=== PATIENT | female | born 1970 | race Caucasian/White ===

== ENCOUNTER 2021-09-17 12:17 | Emergency (ER) | payer OTHER, SELFPAY ==
[2021-09-17 12:42] VITALS: BP 146/108; PULSE 92; RESP 16; TEMP 36.3; O2SAT 97; BMI 31.0
[2021-09-17 13:00] VITALS: BP 129/90; PULSE 73; RESP 18; O2SAT 96
[2021-09-17 13:30] VITALS: BP 112/82; PULSE 72; RESP 16; O2SAT 97
[2021-09-17 13:41] LABS: Chloride* 104 mmol/L (96-114); Potassium* 4.3 mmol/L (3.6-5.1); Sodium* 137 mmol/L (135-149)
[2021-09-17 13:44] LABS: Carbon Dioxide* 29 mmol/L (20-32); Creatinine* 0.7 mg/dL (0.5-1.5); Est. Creatinine Clearance* 88.01; Estimated Glomerular Filt Rate 104 ml/min
[2021-09-17 13:45] LABS: Blood Urea Nitrogen* 13 mg/dL (7-30); Calcium* 8.8 mg/dL (8.4-10.6); Glucose* 88 mg/dL (60-115)
[2021-09-17 14:08] VITALS: BP 130/89; PULSE 77; RESP 16; O2SAT 98
--- NOTE | 2021-09-17 14:34 | ED.GENADULT ---
HPI - General Adult General Date Seen: 09/17/21 Chief complaint: Arrhythmia/Palpitations Stated complaint: VOMITING,DIARRHEA Time Seen by Provider: 09/17/21 12:49 Source: patient History of Present Illness HPI narrative: Patient is a 50-year-old woman who was seen in [place] a few days ago with vomiting and diarrhea. She says that this happens to her every few months, and has been for 5 years. She says no one has been able to figure out what causes it. At any rate, she says that her potassium was 3.1, and she was discharged with 5 days of potassium replacement, 40 mEq a day. She has been taking those faithfully. She was advised to have her potassium rechecked in her clinic. Today, she was feeling jittery. She talked to her daughter, who told her that this could be related to her low potassium. She then called the nurse line, who told her she should call an ambulance. Instead, she had her boyfriend bring her here for evaluation. She says that she just feels jittery, ?nervous in her stomach?. She has not had any actual palpitations, she does not have any chest pain, lightheadedness, weakness, fainting, or other symptoms. Mostly, she just wants her potassium rechecked. She has not had any further vomiting or diarrhea. She has been eating and drinking without difficulty. Related Data Home Medications Medication Instructions Recorded Confirmed losartan 50 mg tablet 50 mg PO DAILY 09/17/21 09/17/21 omeprazole 40 mg capsule,delayed 40 mg PO DAILY 09/17/21 09/17/21 release potassium chloride 20 mEq 20 meq PO BID 09/17/21 09/17/21 tablet,extended release(part/cryst) venlafaxine 150 mg 225 mg PO DAILY 09/17/21 09/17/21 capsule,extended release 24 hr Allergies Allergy/AdvReac Type Severity Reaction Status Date / Time bee pollen Allergy Severe Anaphylaxis Verified 09/17/21 12:40 Penicillins Allergy Intermediate Verified 09/17/21 12:40 morphine AdvReac Intermediate Migraine Verified 09/17/21 12:40 ondansetron [From Zofran] AdvReac Intermediate Migraine Verified 09/17/21 12:40 Review of Systems Status of ROS: Reports: 10 or more systems reviewed and unremarkable except as noted in History and below PFSH PFSH Social History Smoking Status: Current every day smoker What tobacco products do you use: cigarettes Do you use any of these nicotine containing products: None Second hand tobacco smoke exposure: No How often do you have a drink containing alcohol: monthly or less How often do you have six or more drinks on one occasion: Never AUDIT-C Alcohol total score: 1 Non-prescribed substance use: marijuana (any form) service: No Exam Narrative: Exam Narrative: Vital signs as noted below. In general, an alert, well-appearing patient. Head: Normocephalic, atraumatic. Eyes: Pupils are equal reactive. Extraocular movements are full. Conjunctivae are normal. ENT: Mucous membranes are moist. Throat is normal. Neck: Supple without lymphadenopathy. Heart: Regular rate and rhythm. No murmur or rub. Lungs: Clear bilaterally. No increased work of breathing, crackles or wheezes. Abdomen: Soft and nontender. No organomegaly. Extremities: Well perfused. No edema. No calf tenderness. Pulses intact. Neurologic: Patient is alert and oriented to person and place. Speech is fluent. Face is symmetric. Moves all extremities equally. Affect: Normal. Skin: Warm and dry. Well perfused. Const: Vital Signs, click to edit/add: Vital Signs - 24 hr 09/17/21 12:42 09/17/21 13:00 09/17/21 13:30 Temperature 97.3 F L Pulse Rate [Pulse Oximeter] 92 73 72 Respiratory Rate 16 18 16 Blood Pressure [Le ft Forearm] 146/108 H 129/90 H 112/82 Pulse Oximetry 97 96 97 09/17/21 14:08 Temperature Pulse Rate [Pulse Oximeter] 77 Respiratory Rate 16 Blood Pressure [Le ft Forearm] 130/89 Pulse Oximetry 98 Course Course Hospital Course: We maintained her on the [place] while here, did not have any dysrhythmias. An EKG by my review shows a normal sinus rhythm, ventricular rate of 76 beats per minute. No acute ST segment changes. I did recheck a basic metabolic panel, her potassium today is 4.3. She is very reassured by this. I think it is okay for her to discontinue her potassium replacement given that she is not having any further vomiting or diarrhea. She can follow up as needed. Regarding her jittery feeling today, I do not think this is related to her potassium level obviously. She can follow up as needed should these symptoms persist. Vital Signs Vital signs: Initial Vital Signs Temperature 97.3 F L 09/17/21 12:42 Temperature Source Temporal Artery Scan 09/17/21 12:42 Pulse Rate 92 09/17/21 12:42 Respiratory Rate 16 09/17/21 12:42 Blood Pressure 146/108 H 09/17/21 12:42 Blood Pressure Mean 120 09/17/21 12:42 Blood Pressure Position Sitting 09/17/21 12:42 Pulse Oximetry 97 09/17/21 12:42 Oxygen Delivery Method 09/17/21 12:42 Vital Signs Temperature 97.3 F L 09/17/21 12:42 Pulse Rate 92 09/17/21 12:42 Respiratory Rate 16 09/17/21 12:42 Blood Pressure 146/108 H 09/17/21 12:42 Pulse Oximetry 97 09/17/21 12:42 Temperature 97.3 F L 09/17/21 12:42 Pulse Rate 77 09/17/21 14:08 Respiratory Rate 16 09/17/21 14:08 Blood Pressure 130/89 09/17/21 14:08 Pulse Oximetry 98 09/17/21 14:08 Medical Decision Making Lab Data Labs: Lab Results 09/17/21 Range/Units 13:18 Sodium 137 (135-149) mmol/L Potassium 4.3 (3.6-5.1) mmol/L Chloride 104 (96-114) mmol/L Carbon Dioxide 29 (20-32) mmol/L BUN 13 (7-30) mg/dL Creatinine 0.7 (0.5-1.5) mg/dL Estimated Creat Clear 88.01 Estimated GFR 104 ml/min Glucose 88 (60-115) mg/dL Calcium 8.8 (8.4-10.6) mg/dL Discharge Plan Discharge Clinical Impression: Anxiety Patient Disposition: Home, Self-Care Condition: Improved Additional Instructions: Follow-up as needed with regular doctor. Okay to discontinue potassium supplementation. Prescriptions: No Action potassium chloride 20 mEq tablet,ER particles/crystals 20 meq PO BID 0RF Label Comments: TAKE ONE TABLET BY MOUTH IN THE MORNING AND ONE TABLET IN THE EVENING WITH MEALS FOR 3 DAYS. losartan 50 mg tablet 50 mg PO DAILY 0RF Label Comments: TAKE ONE TABLET BY MOUTH EVERY DAY venlafaxine 150 mg capsule,extended release 24hr 225 mg PO DAILY 0RF Label Comments: TAKE ONE CAPSULE BY MOUTH EVERY DAY ALONG WITH 75MG CAPSULE WITH THE EVENING MEAL. omeprazole 40 mg capsule,delayed release(DR/EC) 40 mg PO DAILY 0RF Label Comments: TAKE ONE CAPSULE BY MOUTH EVERY DAY BEFORE A MEAL Follow Up/Referrals: Bony Little MD [Primary Care Provider] - Stand Alone Forms: [employer] Info Instructions
== END 2021-09-17 14:09 | disposition home or self-care (01) ==
PROVIDERS: Emergency Provider Emergency Medicine; PCP Family Medicine
DX: F41.9 Anxiety disorder, unspecified (principal)
CPT/HCPCS: 36415; 80048; 93005; 99283; 99284

== ENCOUNTER 2022-02-10 09:41 | Emergency (ER) | payer OTHER, SELFPAY ==
[2022-02-10 10:00] VITALS: BP 127/88; PULSE 82; RESP 16; O2SAT 95
[2022-02-10 10:06] VITALS: BP 127/88; PULSE 95; RESP 16; TEMP 37.3; O2SAT 97; BMI 32.3
[2022-02-10 10:30] VITALS: BP 130/90; PULSE 82; RESP 16; O2SAT 93
--- NOTE | 2022-02-10 10:37 | ED_ITS ---
HPI - General Adult General Date Seen: 02/10/22 Chief complaint: Nausea/Vomiting Stated complaint: Sick Time Seen by Provider: 02/10/22 10:14 Source: patient History of Present Illness HPI narrative: Patient is a 51-year-old woman who presents with nausea and vomiting. She tells me she has been sick since yesterday. She says this happens every 3 months and has been for 5 years. We have seen her multiple times here although it looks l ruddy the last time was in July of 2020. I did see her in September for recheck of potassium. She says that she was seen here in November, 3 months ago, for these symptoms, but there is no record of a visit at that time. She says that she has been seen multiple times by Dr. Regalado, has had extensive workup, nothing has ever been found. She has an appointment with him upcoming on February 14. She does smoke marijuana daily, it has been suggested to her that this may play a role in her symptoms, she is highly resistant to that idea and is unwilling to stop smoking marijuana. She says it is the only thing that helps. She says she has stopped in the past and it did not make a difference. She says she had a fever of 101 last night. None today. Unable to keep anything down since yesterday. No severe abdominal pain. No bloody stools. No urinary symptoms. Does get diarrhea. Symptoms are identical to previous episodes. She has had a cholecystectomy. Denies alcohol use. Related Data Home Medications Medication Instructions Recorded Confirmed losartan 50 mg tablet 50 mg PO DAILY 09/17/21 02/10/22 omeprazole 40 mg capsule,delayed 40 mg PO DAILY 09/17/21 02/10/22 release venlafaxine 150 mg 225 mg PO DAILY 09/17/21 02/10/22 capsule,extended release 24 hr famotidine 40 mg tablet 40 mg PO QHS 02/10/22 02/10/22 Previous Rx's Medication Instructions Recorded metoclopramide HCl 10 mg tablet 10 mg PO Q6H PRN nausea and 02/10/22 (Reglan) vomiting #10 tabs potassium chloride 20 mEq 20 meq PO DAILY #10 tabs 02/10/22 tablet,extended release Allergies Allergy/AdvReac Type Severity Reaction Status Date / Time bee pollen Allergy Severe Anaphylaxis Verified 02/10/22 10:09 Penicillins Allergy Intermediate Verified 02/10/22 10:09 morphine AdvReac Intermediate Migraine Verified 02/10/22 10:09 ondansetron [From Zofran] AdvReac Intermediate Migraine Verified 02/10/22 10:09 Review of Systems Status of ROS: Reports: 10 or more systems reviewed and unremarkable except as noted in History and below [facility] Social History Smoking Status: Current every day smoker What tobacco products do you use: cigarettes Smoking packs per day: 1 Smoking cigarettes per day: 20.0 Do you use any of these nicotine containing products: None Second hand tobacco smoke exposure: No How often do you have a drink containing alcohol: monthly or less How often do you have six or more drinks on one occasion: Never AUDIT-C Alcohol total score: 1 Non-prescribed substance use: marijuana (any form) service: No Exam Narrative: Exam Narrative: Vital signs as noted above. In general, an alert, nontoxic woman. Head: Normocephalic, atraumatic. Eyes: Pupils are equal reactive. Extraocular movements are full. Conjunctivae are normal. No scleral icterus. ENT: Mucous membranes are moist. Throat is normal. Neck: Supple without lymphadenopathy. Heart: Regular rate and rhythm. No murmur or rub. Lungs: Clear bilaterally. No increased work of breathing, crackles or wheezes. Abdomen: Soft and nontender. No organomegaly. Extremities: Well perfused. No edema. No calf tenderness. Pulses intact. Neurologic: Patient is alert and oriented to person and place. Speech is fluent. Face is symmetric. Moves all extremities equally. Affect: Normal. Skin: Warm and dry. Well perfused. Const: Vital Signs, click to edit/add: Vital Signs - 24 hr 02/10/22 10:06 02/10/22 10:00 02/10/22 10:30 Temperature 99.2 F Pulse Rate [Pulse Oximeter] 95 82 82 Respiratory Rate 16 16 16 Blood Pressure [Ri ght Upper Arm] 127/88 127/88 130/90 H Pulse Oximetry 97 95 93 Oxygen Delivery Me thod Room Air Room Air Room Air 02/10/22 11:00 02/10/22 11:30 Temperature 99.1 F Pulse Rate [Pulse Oximeter] 93 81 Respiratory Rate 16 16 Blood Pressure [Ri ght Upper Arm] 130/81 135/80 Pulse Oximetry 93 96 Oxygen Delivery Me thod Room Air Room Air Documenting provider has reviewed patient's vital signs: yes Course Course Hospital Course: I have reviewed her records. Multiple previous episodes and visits for this. We will go ahead and give her some fluids, Reglan for nausea, check some labs. I have reviewed with her, I certainly do not think I will have the answer for this. Have discussed with her that I certainly think cessation of marijuana would be appropriate, she is adamant that giving a marijuana is unnecessary and not something she is willing to consider. Labs are overall reassuring. White blood cell count is mildly elevated, but not markedly so. Nonspecific in the setting I think. Potassium is 3.1, she did receive replacement of 50 mEq here, and I am giving her 20 mEq a day for home over the next 10 days. She does have a history of hypokalemia in the past. Her nausea and headache or markedly improved, she is feeling significantly better. Other labs are unremarkable. Symptoms are chronic in nature. My suspicion for acute process such as appendicitis, diverticulitis, obstruction, pancreatitis, hepatitis, pelvic pathology such as PID, torsion, etcetera, is very low. I have recommended that she follow up with Dr. Regalado as planned, but I do not think further imaging is warranted today based on relatively benign labs, benign abdominal exam and chronic nature of her symptoms. She is comfortable with outpatient follow-up. Vital Signs Vital signs: Initial Vital Signs Pulse Rate 82 02/10/22 10:00 Pulse Rhythm 02/10/22 10:00 Pulse Strength 3+ Normal 02/10/22 10:00 Respiratory Rate 16 02/10/22 10:00 Respiratory Effort 02/10/22 10:00 Respiratory Depth Normal 02/10/22 10:00 Respiratory Pattern 02/10/22 10:00 Blood Pressure 127/88 02/10/22 10:00 Blood Pressure Mean 101 02/10/22 10:00 Blood Pressure Position Supine 02/10/22 10:00 Pulse Oximetry 95 02/10/22 10:00 Oxygen Delivery Method 02/10/22 10:00 Vital Signs Pulse Rate 82 02/10/22 10:00 Respiratory Rate 16 02/10/22 10:00 Blood Pressure 127/88 02/10/22 10:00 Pulse Oximetry 95 02/10/22 10:00 Oxygen Delivery Method 02/10/22 10:00 Temperature 99.1 F 02/10/22 11:30 Pulse Rate 81 02/10/22 11:30 Respiratory Rate 16 02/10/22 11:30 Blood Pressure 135/80 02/10/22 11:30 Pulse Oximetry 96 02/10/22 11:30 Oxygen Delivery Method 02/10/22 11:30 Medical Decision Making Lab Data Labs: Lab Results 02/10/22 02/10/22 02/10/22 Range/Units 10:02 10:35 10:35 WBC 12.40 H (4.50-11.00) K/uL RBC 4.74 (4.00-5.20) m/uL Hgb 14.5 (12.0-16.0) gm/dL Hct 42.2 (33.0-51.0) % MCV 89 (80-100) fL MCH 31 (26-34) pg MCHC 34 (32-36) gm/dL RDW Coeff of Tracee 13.0 (11.5-15.5) % Plt Count 386 (140-440) K/uL Neut % (Auto) 77.3 H (42.0-72.0) % Lymph % (Auto) 16.6 L (20-44) % [place] % (Auto) 5.9 (0.0-11.0) % Eos % (Auto) 0.0 (0.0-7.0) % Baso % (Auto) 0.0 (0.0-3.0) % Neut # (Auto) 9.60 H (1.7-7.0) K/uL Lymph # (Auto) 2.10 (0.90-2.90) K/uL [place] # (Auto) 0.70 (0.00-0.90) K/UL Eos # (Auto) 0.00 (0.00-0.50) K/uL Baso # (Auto) 0.00 (0.00-0.30) K/uL Abs Immat Gran (auto) 0.00 (0.00-0.30) K/uL Imm/Tot Granulo (auto) 0.2 % Sodium 142 (135-149) mmol/L Potassium 3.1 L (3.6-5.1) mmol/L Chloride 107 (96-114) mmol/L Carbon Dioxide 24 (20-32) mmol/L BUN 15 (7-30) mg/dL Creatinine 0.7 (0.5-1.5) mg/dL Estimated Creat Clear 87.01 Estimated GFR 103 ml/min Glucose 113 (60-115) mg/dL Lactate (0.5-1.9) mmol/L Calcium 9.8 (8.4-10.6) mg/dL C-Reactive Protein 1.2 H (0.5-1.0) mg/dL SARS-CoV-2 (PCR) Negative SARS-CoV-2 (Negative) Influenza Type A (PCR) Negative PCR FLU A (Negative) Influenza Type B (PCR) Negative PCR FLU B (Negative) RSV (PCR) Negative PCR RSV (Negative) 02/10/22 Range/Units 10:35 WBC (4.50-11.00) K/uL RBC (4.00-5.20) m/uL Hgb (12.0-16.0) gm/dL Hct (33.0-51.0) % MCV (80-100) fL MCH (26-34) pg MCHC (32-36) gm/dL RDW Coeff of Tracee (11.5-15.5) % Plt Count (140-440) K/uL Neut % (Auto) (42.0-72.0) % Lymph % (Auto) (20-44) % [place] % (Auto) (0.0-11.0) % Eos % (Auto) (0.0-7.0) % Baso % (Auto) (0.0-3.0) % Neut # (Auto) (1.7-7.0) K/uL Lymph # (Auto) (0.90-2.90) K/uL [place] # (Auto) (0.00-0.90) K/UL Eos # (Auto) (0.00-0.50) K/uL Baso # (Auto) (0.00-0.30) K/uL Abs Immat Gran (auto) (0.00-0.30) K/uL Imm/Tot Granulo (auto) % Sodium (135-149) mmol/L Potassium (3.6-5.1) mmol/L Chloride (96-114) mmol/L Carbon Dioxide (20-32) mmol/L BUN (7-30) mg/dL Creatinine (0.5-1.5) mg/dL Estimated Creat Clear Estimated GFR ml/min Glucose (60-115) mg/dL Lactate 1.2 (0.5-1.9) mmol/L Calcium (8.4-10.6) mg/dL C-Reactive Protein (0.5-1.0) mg/dL SARS-CoV-2 (PCR) (Negative) Influenza Type A (PCR) (Negative) Influenza Type B (PCR) (Negative) RSV (PCR) (Negative) Discharge Plan Discharge Clinical Impression: Nausea & vomiting, Hypokalemia Patient Disposition: Home, Self-Care Condition: Improved Instructions: Hypokalemia (ED), Acute Nausea and Vomiting (ED) Additional Instructions: Reglan if needed for nausea/vomiting. Potassium supplementation as ordered. Follow up with Dr. Regalado as planned. Prescriptions: New metoclopramide HCl [Reglan] 10 mg tablet 10 mg PO Q6H PRN (Reason: nausea and vomiting) Qty: 10 0RF potassium chloride 20 mEq tablet extended release 20 meq PO DAILY Qty: 10 2RF No Action losartan 50 mg tablet 50 mg PO DAILY Label Comments: TAKE ONE TABLET BY MOUTH EVERY DAY venlafaxine 150 mg capsule,extended release 24hr 225 mg PO DAILY Label Comments: TAKE ONE CAPSULE BY MOUTH EVERY DAY ALONG WITH 75MG CAPSULE WITH THE EVENING MEAL. omeprazole 40 mg capsule,delayed release(DR/EC) 40 mg PO DAILY Label Comments: TAKE ONE CAPSULE BY MOUTH EVERY DAY BEFORE A MEAL famotidine 40 mg tablet 40 mg PO QHS Label Comments: TAKE ONE TABLET BY MOUTH EVERY DAY Follow Up/Referrals: Bony Little MD [Primary Care Provider] - Stand Alone Forms: [employer] Info Instructions
[2022-02-10] MEDS: 0.9 % SODIUM CHLORIDE 1000 ml 1,000 ML IV (10:41)
[2022-02-10 10:46] LABS: Lactate* 1.2 mmol/L (0.5-1.9)
[2022-02-10 10:47] LABS: Hematocrit 42.2 % (33.0-51.0); Hemoglobin* 14.5 gm/dL (12.0-16.0); Immature Granulocytes Pct Auto 0.2 %; Lymphocytes Percent Auto 16.6 % (20-44); Mean Corpuscular HGB Conc 34 gm/dL (32-36); Mean Corpuscular Hemoglobin 31 pg (26-34); Mean Corpuscular Volume 89 fL (80-100); Monocytes Percent Auto 5.9 % (0.0-11.0); Neutrophils Percent Auto 77.3 % (42.0-72.0); Platelet Count* 386 K/uL (140-440); Red Blood Count 4.74 m/uL (4.00-5.20)
[2022-02-10 10:48] LABS: PCR FLU A Negative PCR FLU A (Negative); PCR FLU B Negative PCR FLU B (Negative); PCR RSV Negative PCR RSV (Negative)
[2022-02-10 10:50] LABS: SARS PCR* Negative SARS-CoV-2 (Negative)
[2022-02-10 10:56] LABS: Slide Review Reflex No
[2022-02-10 11:00] VITALS: BP 130/81; PULSE 93; RESP 16; O2SAT 93
[2022-02-10 11:07] LABS: Chloride* 107 mmol/L (96-114)
[2022-02-10 11:08] LABS: Potassium* 3.1 mmol/L (3.6-5.1); Sodium* 142 mmol/L (135-149)
[2022-02-10] MEDS: METOCLOPRAMIDE HCL 10 MG in 0.9 % SODIUM CHLORIDE 100 ml 100 ML 306 MG IVPB (11:09)
[2022-02-10 11:10] LABS: Creatinine* 0.7 mg/dL (0.5-1.5); Est. Creatinine Clearance* 87.01; Estimated Glomerular Filt Rate 103 ml/min
[2022-02-10 11:11] LABS: Blood Urea Nitrogen* 15 mg/dL (7-30); Calcium* 9.8 mg/dL (8.4-10.6); Carbon Dioxide* 24 mmol/L (20-32); Glucose* 113 mg/dL (60-115)
[2022-02-10 11:14] LABS: C Reactive Protein* 1.2 mg/dL (0.5-1.0)
[2022-02-10 11:30] VITALS: BP 135/80; PULSE 81; RESP 16; TEMP 37.3; O2SAT 96
[2022-02-10] MEDS: POTASSIUM BICARB 25 MEQ EFFERVESCENT TAB 50 MEQ PO (11:56)
== END 2022-02-10 12:19 | disposition home or self-care (01) ==
PROVIDERS: Emergency Provider Emergency Medicine; PCP Family Medicine
DX: R11.2 Nausea with vomiting, unspecified (principal); E87.6 Hypokalemia
CPT/HCPCS: 36415; 80048; 83605; 85025; 86140; 87502; 87634; 87635; 96365; 99284; A9270; J2765; J7030

== ENCOUNTER 2022-05-25 12:54 | Emergency (ER) | payer OTHER, SELFPAY ==
[2022-05-25 13:09] VITALS: BP 173/113; PULSE 139; RESP 20; TEMP 37.2; O2SAT 98; BMI 32.3
--- NOTE | 2022-05-25 13:31 | ED.GENADULT ---
HPI - General Adult General Time Seen by Provider: 13:31 Date Seen: 05/25/22 Chief complaint: Weakness Stated complaint: Can't keep anything down, dehydrated Time Seen by Provider: 05/25/22 13:00 Source: patient and RN notes reviewed Mode of arrival: ambulatory Limitations: no limitations History of Present Illness HPI narrative: Patient is a 51-year-old female coming in with inability to keep anything down. She has had nausea vomiting for few days now. She is supposed to be on an oral antibiotic for right ear infection. That awoke her 2 nights ago middle the night. She is going to be seeing a GI specialist. She will periodically have nausea vomiting. Michael reportedly gives her migraines. She does have metoclopramide at home. She has been on able to stop the nausea vomiting. She states she has a 5 year history of stomach issues, will be going to see a GI specialist. She only has pain when she attempts to eat or drink anything. She will vomit it back up. She is here with male significant other that I presume is her . He did interject quite a bit into the history. She had fevers with the ear infection. She has felt hot and cold. When questioned if she has been told or asked about cyclical vomiting, she is unaware of this diagnosis. She denies any underlying cough or cold symptoms, ear infection reportedly did not stem from a recent URI. Related Data Home Medications Medication Instructions Recorded Confirmed losartan 50 mg tablet 50 mg PO DAILY 09/17/21 02/10/22 omeprazole 40 mg capsule,delayed 40 mg PO DAILY 09/17/21 02/10/22 release venlafaxine 150 mg 225 mg PO DAILY 09/17/21 02/10/22 capsule,extended release 24 hr famotidine 40 mg tablet 40 mg PO QHS 02/10/22 02/10/22 Previous Rx's Medication Instructions Recorded metoclopramide HCl 10 mg tablet 10 mg PO Q6H PRN nausea and 02/10/22 (Reglan) vomiting #10 tabs potassium chloride 20 mEq 20 meq PO DAILY #10 tabs 02/10/22 tablet,extended release Allergies Allergy/AdvReac Type Severity Reaction Status Date / Time bee pollen Allergy Severe Anaphylaxis Verified 05/25/22 13:12 Penicillins Allergy Intermediate Verified 05/25/22 13:12 morphine AdvReac Intermediate Migraine Verified 05/25/22 13:12 ondansetron [From Zofran] AdvReac Intermediate Migraine Verified 05/25/22 13:12 Review of Systems Status of ROS: Reports: 6 or more systems reviewed and unremarkable except as noted in History and below [facility] Social History Smoking Status: Current every day smoker What tobacco products do you use: cigarettes Smoking packs per day: 1 Smoking cigarettes per day: 20.0 Do you use any of these nicotine containing products: None Second hand tobacco smoke exposure: No How often do you have a drink containing alcohol: monthly or less How often do you have six or more drinks on one occasion: Never AUDIT-C Alcohol total score: 1 Non-prescribed substance use: marijuana (any form) service: No Exam Const: Vital Signs, click to edit/add: Vital Signs - 24 hr 05/25/22 13:09 05/25/22 15:37 Temperature 99.0 F Pulse Rate [Pulse Oximeter] 139 H Respiratory Rate 20 Blood Pressure [Le ft Upper Arm] 173/113 H Pulse Oximetry 98 93 Oxygen Delivery Me thod Room Air Documenting provider has reviewed patient's vital signs: yes Common normals: no apparent distress, oriented x3, no limitations, alert and well nourished General appearance: cooperative, comfortable and well developed Nutritional appearance: overweight Other: Looks like she does not feel well but is able to converse with me. Is very pleasant. HENMT: Common normals: normocephalic, head/scalp atraumatic, hearing grossly normal bilaterally and external ears normal Head and scalp: normocephalic and atraumatic External ear: external ears normal Other: Oral mucosa dry. Right tympanic membrane is pink to erythematous, bulging, loss of light reflects, no drainage in the canal at this time. Left TM canal normal. Oral mucosa with dry mucous membranes. Eye: Common normals: PERRL, EOMs intact bilaterally, conjunctivae normal and no scleral icterus Conjunctiva: conjunctiva(e) normal Pupil: PERRL Neck & C-Spine: Common normals: full ROM, no lymphadenopathy, supple, no meningeal signs, no JVD and thyroid normal Thyroid: thyroid normal Resp: Common normals: normal respiratory effort, no retractions, no use of accessory muscles and clear to auscultation bilaterally Auscultation: clear to auscultation bilaterally Cardio: Common normals: no JVD, regular rate, regular rhythm, S1 normal heart sound, S2 normal heart sound, no gallops, no clicks and no murmurs Rate: regular rate Rhythm: regular rhythm Heart sounds: S1 normal and S2 normal GI: Common normals: Normal to inspection, nondistended, normoactive bowel sounds present, soft to palpation, non-tender, no hepatosplenomegaly and no masses Palpation: soft and no hepatosplenomegaly Neuro: Common normals: oriented x3 Sensorium/orientation: alert Meningeal signs: no meningeal signs Gait (neuro): normal gait (Patient was able to ambulate into room 7 on her own.) Course Course Hospital Course: Reviewed with patient that we will initiate IV fluid, she was quite relieved that we were going to do so. She had her ear drops with and was able to visualize that she was given oral Cipro and Ciprodex ear drops. I will give her dose of IV ciprofloxacin 400 mg for her ear. We will do 10 mg IV metoclopramide. Will check baseline labs. Her abdomen seems benign on clinical examination, doubt surgical abdomen. She is reporting 5 year history of symptoms, do wonder if this could be a cyclical vomiting type situation. Will see how she does with the fluids, response to nausea medicine. Reevaluation(s) Reevaluation #1: Reviewed with patient, she is feeling much better. Her white count and C-reactive protein are up, very likely due to the ear infection. She did get IV Cipro here. She was able to take her losartan and her venlafaxine and kept it down. She is requesting to go home, does not want further IV fluids. We did briefly review that I did review her old records, without it being said, she grabbed my hand and stated I know. Time: 15:53 Vital Signs Vital signs: Initial Vital Signs Temperature 99.0 F 05/25/22 13:09 Temperature Source Temporal Artery Scan 05/25/22 13:09 Pulse Rate 139 H 05/25/22 13:09 Pulse Rhythm 05/25/22 13:09 Pulse Strength 3+ Normal 05/25/22 13:09 Respiratory Rate 20 05/25/22 13:09 Blood Pressure 173/113 H 05/25/22 13:09 Blood Pressure Mean 133 05/25/22 13:09 Blood Pressure Position Sitting 05/25/22 13:09 Pulse Oximetry 98 05/25/22 13:09 Oxygen Delivery Method 05/25/22 13:09 Vital Signs Temperature 99.0 F 05/25/22 13:09 Pulse Rate 139 H 05/25/22 13:09 Respiratory Rate 20 05/25/22 13:09 Blood Pressure 173/113 H 05/25/22 13:09 Pulse Oximetry 98 05/25/22 13:09 Oxygen Delivery Method 05/25/22 13:09 Temperature 99.0 F 05/25/22 13:09 Pulse Rate 139 H 05/25/22 13:09 Respiratory Rate 20 05/25/22 13:09 Blood Pressure 173/113 H 05/25/22 13:09 Pulse Oximetry 93 05/25/22 15:37 Oxygen Delivery Method 05/25/22 13:09 Medical Decision Making Medical Records Medical records reviewed: Yes I reviewed the patient's medical records Medical records narrative: Did review old records, specifically you review Dr. Cheema note from her last ER visit in its entirety. Patient does seem like she has probable cyclical vomiting, does use marijuana per that note. It is not something that the patient is willing to except as a causative etiology to her nausea and vomiting from prior notes. Lab Data Labs: Lab Results 05/25/22 05/25/22 05/25/22 Range/Units 13:50 13:50 13:50 WBC 20.20 H (4.50-11.00) K/uL RBC 5.15 (4.00-5.20) m/uL Hgb 15.8 (12.0-16.0) gm/dL Hct 45.7 (33.0-51.0) % MCV 89 (80-100) fL MCH 31 (26-34) pg MCHC 35 (32-36) gm/dL RDW Coeff of Tracee 13.0 (11.5-15.5) % Plt Count 443 H (140-440) K/uL Neut % (Auto) 82.9 H (42.0-72.0) % Lymph % (Auto) 10.0 L (20-44) % [place] % (Auto) 6.8 (0.0-11.0) % Eos % (Auto) 0.1 (0.0-7.0) % Baso % (Auto) 0.0 (0.0-3.0) % Neut # (Auto) 16.70 H (1.7-7.0) K/uL Lymph # (Auto) 2.00 (0.90-2.90) K/uL [place] # (Auto) 1.40 H (0.00-0.90) K/UL Eos # (Auto) 0.00 (0.00-0.50) K/uL Baso # (Auto) 0.00 (0.00-0.30) K/uL Sodium 139 (135-149) mmol/L Potassium 3.5 L (3.6-5.1) mmol/L Chloride 106 (96-114) mmol/L Carbon Dioxide 23 (20-32) mmol/L BUN 20 (7-30) mg/dL Creatinine 0.8 (0.5-1.5) mg/dL Estimated Creat Clear 76.13 Estimated GFR 88 ml/min Glucose 144 H (60-115) mg/dL Lactate 1.7 (0.5-1.9) mmol/L Calcium 10.4 (8.4-10.6) mg/dL Total Bilirubin 0.6 (0.1-1.5) mg/dL AST 21 (12-35) U/L ALT 22 (4-35) U/L Alkaline Phosphatase 116 (40-150) U/L C-Reactive Protein 7.4 H (0.5-1.0) mg/dL Total Protein 8.4 H (6.0-8.3) g/dL Albumin 4.8 (3.3-5.0) g/dL Lipase 39 (23-300) U/L Critical Care Time Critical Care Time Critical Care Time: No Discharge Plan Discharge Clinical Impression: Otitis media, Dehydration Patient Disposition: Home, Self-Care Condition: Stable Instructions: Dehydration (ED), Ear Infection (ED), Cyclic Vomiting Syndrome (ED) Additional Instructions: Start oral antibiotics tomorrow, can continue with ear drops as prescribed. Take your usual medicines. Do recommend following up with GI as you have planned. If you are unable to take oral antibiotics by tomorrow morning, have any further concerns or issues, do recommend re-evaluation. Can use your metoclopramide as needed per prescription for any recurrent nausea or vomiting. Activity Level: Activity as Tolerated Discharge Diet: Regular Prescriptions: No Action losartan 50 mg tablet 50 mg PO DAILY Label Comments: TAKE ONE TABLET BY MOUTH EVERY DAY venlafaxine 150 mg capsule,extended release 24hr 225 mg PO DAILY Label Comments: TAKE ONE CAPSULE BY MOUTH EVERY DAY ALONG WITH 75MG CAPSULE WITH THE EVENING MEAL. omeprazole 40 mg capsule,delayed release(DR/EC) 40 mg PO DAILY Label Comments: TAKE ONE CAPSULE BY MOUTH EVERY DAY BEFORE A MEAL famotidine 40 mg tablet 40 mg PO QHS Label Comments: TAKE ONE TABLET BY MOUTH EVERY DAY metoclopramide HCl [Reglan] 10 mg tablet 10 mg PO Q6H PRN (Reason: nausea and vomiting) Qty: 10 0RF potassium chloride 20 mEq tablet extended release 20 meq PO DAILY Qty: 10 2RF Stand Alone Forms: [employer] Info Instructions
[2022-05-25] MEDS: 0.9 % SODIUM CHLORIDE 1000 ml 1,000 ML IV (14:15)
[2022-05-25] MEDS: CIPROFLOXACIN 400 MG/200 ML PIGGYBACK 200 MG IVPB (14:15)
[2022-05-25 14:22] LABS: Lactate* 1.7 mmol/L (0.5-1.9)
[2022-05-25] MEDS: METOCLOPRAMIDE HCL 5 MG/ML INJ 10 MG IVP (14:23)
[2022-05-25 14:27] LABS: Eosinophils Percent Auto 0.1 % (0.0-7.0); Hematocrit 45.7 % (33.0-51.0); Hemoglobin* 15.8 gm/dL (12.0-16.0); Immature Granulocytes Pct Auto 0.2 %; Mean Corpuscular HGB Conc 35 gm/dL (32-36); Mean Corpuscular Hemoglobin 31 pg (26-34); Mean Corpuscular Volume 89 fL (80-100); Monocytes Percent Auto 6.8 % (0.0-11.0); Neutrophils Percent Auto 82.9 % (42.0-72.0); Platelet Count* 443 K/uL (140-440); Red Blood Count 5.15 m/uL (4.00-5.20)
[2022-05-25 14:35] LABS: Slide Review Reflex No
[2022-05-25 14:43] LABS: Chloride* 106 mmol/L (96-114)
[2022-05-25 14:44] LABS: Albumin* 4.8 g/dL (3.3-5.0); Potassium* 3.5 mmol/L (3.6-5.1); Sodium* 139 mmol/L (135-149)
[2022-05-25 14:46] LABS: Creatinine* 0.8 mg/dL (0.5-1.5); Est. Creatinine Clearance* 76.13; Estimated Glomerular Filt Rate 88 ml/min
[2022-05-25 14:47] LABS: Alanine Aminotransferase* 22 U/L (4-35); Alkaline Phosphatase* 116 U/L (40-150); Aspartate Amino Transferase* 21 U/L (12-35); Bilirubin Total* 0.6 mg/dL (0.1-1.5); Blood Urea Nitrogen* 20 mg/dL (7-30); Calcium* 10.4 mg/dL (8.4-10.6); Carbon Dioxide* 23 mmol/L (20-32); Glucose* 144 mg/dL (60-115); Lipase* 39 U/L (23-300); Total Protein* 8.4 g/dL (6.0-8.3)
[2022-05-25 14:50] LABS: C Reactive Protein* 7.4 mg/dL (0.5-1.0)
[2022-05-25 15:37] VITALS: O2SAT 93
== END 2022-05-25 16:18 | disposition home or self-care (01) ==
PROVIDERS: Emergency Provider Family Medicine
DX: H66.91 Otitis media, unspecified, right ear (principal); E86.0 Dehydration
CPT/HCPCS: 36415; 80053; 81001; 83605; 83690; 85025; 86140; 94761; 96365; 96375; 99284; J0744; J2765; J7030

== ENCOUNTER 2022-05-26 09:37 | Emergency (ER) | payer OTHER, SELFPAY ==
[2022-05-26 10:08] VITALS: BP 173/104; PULSE 109; RESP 18; TEMP 36.2; O2SAT 98; BMI 32.3
[2022-05-26] MEDS: 0.9 % SODIUM CHLORIDE 1000 ml 1,000 ML IV (10:33)
[2022-05-26 10:40] LABS: Basophils Percent Auto 0.1 % (0.0-3.0); Eosinophils Percent Auto 0.1 % (0.0-7.0); Hematocrit 43.6 % (33.0-51.0); Hemoglobin* 14.7 gm/dL (12.0-16.0); Immature Granulocytes Pct Auto 0.1 %; Lymphocytes Percent Auto 11.1 % (20-44); Mean Corpuscular HGB Conc 34 gm/dL (32-36); Mean Corpuscular Hemoglobin 31 pg (26-34); Mean Corpuscular Volume 91 fL (80-100); Monocytes Percent Auto 5.2 % (0.0-11.0); Neutrophils Percent Auto 83.4 % (42.0-72.0); Platelet Count* 385 K/uL (140-440); White Blood Count* 16.27 K/uL (4.50-11.00)
[2022-05-26] MEDS: METOCLOPRAMIDE HCL 5 MG/ML INJ 10 MG IVP (11:16)
[2022-05-26 11:26] LABS: Albumin* 4.4 g/dL (3.3-5.0); Chloride* 106 mmol/L (96-114)
[2022-05-26 11:27] LABS: Potassium* 3.4 mmol/L (3.6-5.1); Sodium* 138 mmol/L (135-149)
[2022-05-26 11:29] LABS: Creatinine* 0.7 mg/dL (0.5-1.5); Est. Creatinine Clearance* 87.01; Estimated Glomerular Filt Rate 103 ml/min
[2022-05-26 11:30] LABS: Alanine Aminotransferase* 21 U/L (4-35); Alkaline Phosphatase* 109 U/L (40-150); Aspartate Amino Transferase* 25 U/L (12-35); Bilirubin Total* 0.6 mg/dL (0.1-1.5); Blood Urea Nitrogen* 17 mg/dL (7-30); Calcium* 9.5 mg/dL (8.4-10.6); Carbon Dioxide* 22 mmol/L (20-32); Glucose* 142 mg/dL (60-115); Lipase* 46 U/L (23-300); Total Protein* 7.7 g/dL (6.0-8.3)
--- NOTE | 2022-05-26 11:30 | ED.NAVMDI ---
HPI - Nausea/Vomiting/Diarrhea General Chief complaint: Nausea/Vomiting Stated complaint: needs fluids Time Seen by Provider: 05/26/22 10:29 History of Present Illness HPI Narrative: This 51-year-old female comes in reporting persistent nausea and vomiting. She states that she had decreased hearing and was seen in clinic 4 days ago. She had her ears irrigated then. She was referred to an senior publications specialist who did further cleaning of her ear canals using suction. There was a hematoma present and a diagnosis of otitis externa was made. The patient may have otitis media but it was difficult to visualize the middle compartment according to the patient. She is currently taking Cipro otic and oral Cipro tablets. She was seen yesterday because of vomiting and nausea. She is taking Reglan. She returns today because of vomiting and nausea symptoms. She states that she did have a fever yesterday but arrives here with normal temperature today. Related Data Home Medications Medication Instructions Recorded Confirmed losartan 50 mg tablet 50 mg PO DAILY 09/17/21 02/10/22 omeprazole 40 mg capsule,delayed 40 mg PO DAILY 09/17/21 02/10/22 release venlafaxine 150 mg 225 mg PO DAILY 09/17/21 02/10/22 capsule,extended release 24 hr famotidine 40 mg tablet 40 mg PO QHS 02/10/22 02/10/22 Previous Rx's Medication Instructions Recorded metoclopramide HCl 10 mg tablet 10 mg PO Q6H PRN nausea and 02/10/22 (Reglan) vomiting #10 tabs potassium chloride 20 mEq 20 meq PO DAILY #10 tabs 02/10/22 tablet,extended release cephalexin 500 mg capsule 500 mg PO TID 7 days #21 caps 05/26/22 Allergies Allergy/AdvReac Type Severity Reaction Status Date / Time bee pollen Allergy Severe Anaphylaxis Verified 05/25/22 13:12 Penicillins Allergy Intermediate Verified 05/25/22 13:12 morphine AdvReac Intermediate Migraine Verified 05/25/22 13:12 ondansetron [From Zofran] AdvReac Intermediate Migraine Verified 05/25/22 13:12 Review of Systems Status of ROS: Reports: 10 or more systems reviewed and unremarkable except as noted in History and below Narrative: Constitutional: No fevers, no weight gain or loss. Eyes: No discharge. No vision changes. HENT: Decreased hearing bilaterally. Cardiovascular: No chest pain, no palpitations. Respiratory: No shortness of breath, no wheezes, no cough. Gastrointestinal: She reports upper epigastric abdominal pain. She has nausea and vomiting. No report of diarrhea. Genitourinary: No dysuria, no hematuria. Musculoskeletal: Normal range of motion. Skin: No rashes, no pruritis. Neurological: No dizziness, weakness, sensory change, speech change. Endo/Heme/Allergies: No bruising or bleeding. No polydipsia. Pysch: no suicidality, no anxiety, no insomnia. All other systems reviewed and are negative. [facility] Social History Smoking Status: Current every day smoker What tobacco products do you use: cigarettes Smoking packs per day: 1 Smoking cigarettes per day: 20.0 Do you use any of these nicotine containing products: None Second hand tobacco smoke exposure: No How often do you have a drink containing alcohol: monthly or less How often do you have six or more drinks on one occasion: Never AUDIT-C Alcohol total score: 1 Non-prescribed substance use: marijuana (any form) service: No Exam Narrative: Exam Narrative: Constitutional: Well-developed, well-nourished, no acute distress. HEENT: Normocephalic, atraumatic. She has cotton placed in each ear Canal. Neck: Normal range of motion. Nontender. Supple. Heart: Regular. No murmurs. Normal rate. Intact distal pulses. Lungs: Clear to auscultation. No chest discomfort. No wheezes, rhonchi, or rales. Abdomen: Normal bowel sounds. Nontender. No rebound tenderness. Genitalia: Deferred. Back: No midline tenderness. Normal range of motion. Extremities: Normal range of motion. No injury. Skin: Intact. No rash. Warm. No erythema or pallor. Neurologic: No altered sensation. No weakness. Alert and oriented. Psychiatric: No suicidality. No anxiety or depression. No insomnia. Nursing notes and vitals signs are reviewed. Const: Vital Signs, click to edit/add: Vital Signs - 24 hr 05/26/22 10:08 Temperature 97.2 F L Pulse Rate [Right Pulse Oximeter] 109 H Respiratory Rate 18 Blood Pressure [Ri ght Upper Arm] 173/104 H Pulse Oximetry 98 Oxygen Delivery Me thod Room Air Course Vital Signs Vital signs: Initial Vital Signs Temperature 97.2 F L 05/26/22 10:08 Temperature Source Temporal Artery Scan 05/26/22 10:08 Pulse Rate 109 H 05/26/22 10:08 Respiratory Rate 18 05/26/22 10:08 Blood Pressure 173/104 H 05/26/22 10:08 Blood Pressure Mean 127 05/26/22 10:08 Blood Pressure Position Sitting 05/26/22 10:08 Pulse Oximetry 98 05/26/22 10:08 Oxygen Delivery Method Room Air 05/26/22 10:08 Vital Signs Temperature 97.2 F L 05/26/22 10:08 Pulse Rate 109 H 05/26/22 10:08 Respiratory Rate 18 05/26/22 10:08 Blood Pressure 173/104 H 05/26/22 10:08 Pulse Oximetry 98 05/26/22 10:08 Oxygen Delivery Method Room Air 05/26/22 10:08 Temperature 97.2 F L 05/26/22 10:08 Pulse Rate 109 H 05/26/22 10:08 Respiratory Rate 18 05/26/22 10:08 Blood Pressure 173/104 H 05/26/22 10:08 Pulse Oximetry 98 05/26/22 10:08 Oxygen Delivery Method Room Air 05/26/22 10:08 MDM - Nausea/Vomiting/Diarrhea MDM Narrative Medical decision making narrative: This patient came in primarily for treatment of persistent vomiting and nausea symptoms. An IV was established where she did receive IV fluids and raglan. She states that she has not been able to take her oral medications. She is taking Cipro otic but may benefit from a more traditional oral medication typically used for otitis media. It could be that Cipro is causing her GI symptoms. Any antibiotic could cause nausea and vomiting symptoms. [place] guide for antimicrobial treatment does not list Cipro as a primary or secondary treatment for otitis media. Patient did receive an IV dose of Rocephin 1 g and a prescription for Keflex as she has allergy to penicillin in her history. I advised her to continue the Cipro otic but discontinue the oral Cipro. Lab Data Labs: Lab Results 05/26/22 Range/Units 10:30 WBC 16.27 H (4.50-11.00) K/uL RBC 4.80 (4.00-5.20) m/uL Hgb 14.7 (12.0-16.0) gm/dL Hct 43.6 (33.0-51.0) % MCV 91 (80-100) fL MCH 31 (26-34) pg MCHC 34 (32-36) gm/dL RDW Coeff of Tracee 13.0 (11.5-15.5) % Plt Count 385 (140-440) K/uL Neut % (Auto) 83.4 H (42.0-72.0) % Lymph % (Auto) 11.1 L (20-44) % [place] % (Auto) 5.2 (0.0-11.0) % Eos % (Auto) 0.1 (0.0-7.0) % Baso % (Auto) 0.1 (0.0-3.0) % Neut # (Auto) 13.60 H (1.7-7.0) K/uL Lymph # (Auto) 1.80 (0.90-2.90) K/uL [place] # (Auto) 0.80 (0.00-0.90) K/UL Eos # (Auto) 0.00 (0.00-0.50) K/uL Baso # (Auto) 0.00 (0.00-0.30) K/uL Discharge Plan Discharge Clinical Impression: Otitis externa, Otitis media Patient Disposition: Home, Self-Care Condition: Improved Additional Instructions: Continue Cipro otic. Hold oral Cipro and switched to Keflex as prescribed. Follow up with MD or return if worsening. Prescriptions: New cephalexin 500 mg capsule 500 mg PO TID 7 Days Qty: 21 0RF No Action losartan 50 mg tablet 50 mg PO DAILY Patient Comments: TAKE ONE TABLET BY MOUTH EVERY DAY venlafaxine 150 mg capsule,extended release 24hr 225 mg PO DAILY Patient Comments: TAKE ONE CAPSULE BY MOUTH EVERY DAY ALONG WITH 75MG CAPSULE WITH THE EVENING MEAL. omeprazole 40 mg capsule,delayed release(DR/EC) 40 mg PO DAILY Patient Comments: TAKE ONE CAPSULE BY MOUTH EVERY DAY BEFORE A MEAL famotidine 40 mg tablet 40 mg PO QHS Patient Comments: TAKE ONE TABLET BY MOUTH EVERY DAY metoclopramide HCl [Reglan] 10 mg tablet 10 mg PO Q6H PRN (Reason: nausea and vomiting) Qty: 10 0RF potassium chloride 20 mEq tablet extended release 20 meq PO DAILY Qty: 10 2RF Follow Up/Referrals: Provider,Not a Local [Primary Care Provider] - Stand Alone Forms: [employer] Info Instructions
[2022-05-26] MEDS: cefTRIAXone 1 GM in 0.9 % SODIUM CHLORIDE Mini-bag 100 ML IVPB (11:45)
[2022-05-26 15:16] LABS: Slide Review Reflex No
== END 2022-05-26 13:11 | disposition home or self-care (01) ==
LOC: ED 11:40
PROVIDERS: Student in an Organized Health Care Education/Training Program; Emergency Provider Emergency Medicine Emergency Medical Services
DX: H66.91 Otitis media, unspecified, right ear (principal)
CPT/HCPCS: 36415; 80053; 83690; 85025; 86140; 96365; 96375; 99283; 99284; J0696; J2765; J7030

== ENCOUNTER 2022-05-27 19:37 | Emergency (ER) | payer OTHER, SELFPAY ==
[2022-05-27] VITALS (8 sets, daily range): BP systolic 183–185; BP diastolic 88–92; PULSE 82–105; RESP 16–18; TEMP 36.8; O2SAT 94–100; BMI 32.3
[2022-05-27] MEDS: ONDANSETRON 2 MG/ML inj 4 MG IVP (20:00)
[2022-05-27] MEDS: 0.9 % SODIUM CHLORIDE 1000 ml 1,000 ML IV (20:00)
--- NOTE | 2022-05-27 20:02 | CRLHL7_ITS ---
For Patients: As a result of the Century Cures Act, medical imaging exams and procedure reports are released immediately into your electronic medical record. You may view this report before your referring provider. If you have questions, please contact your health care provider. INDICATION: Left upper quadrant pain. TECHNIQUE: CT abdomen and pelvis acquired with 98 cc Isovue 370 IV contrast. COMPARISON: CT abdomen and pelvis 02/10/2018. FINDINGS: Lower chest: Unremarkable. Liver: Focal fatty infiltration adjacent to the falciform ligament. Subcentimeter hypodense focus along the hepatic dome is too small to accurately characterize but unchanged and likely a cyst or hemangioma. Gallbladder and bile ducts: Status post cholecystectomy. No biliary ductal dilation. Spleen: Normal in size. Stable size of low density lesion measuring approximately 2 cm, likely benign. Adrenal glands: Unremarkable. No nodules. Pancreas: Unremarkable. No mass or inflammation. Kidneys: Unremarkable. No suspicious masses, stones, or hydronephrosis. GI tract: Small hiatal hernia. Small and large bowel are normal in caliber. Diverticulosis without evidence of diverticulitis. Appendix is not well visualized, however there is no evidence of right lower quadrant inflammatory stranding. Lymph nodes: No lymphadenopathy. Vasculature: Scattered atherosclerotic calcifications. No abdominal aortic aneurysm. Omentum/Peritoneum/Abdominal Wall: Fat containing umbilical and left inguinal hernias. No free air or significant free fluid. Pelvis: Unremarkable. Retroverted uterus. Bones: Degenerative changes of the spine. IMPRESSION: 1. No acute abdominal or pelvic abnormality. 2. Diverticulosis without evidence of diverticulitis. 3. Small hiatal hernia. Please note that all CT scans at this facility use dose modulation, iterative reconstruction, and/or weight-based dosing when appropriate to reduce radiation dose to as low as reasonably achievable. Dictated by Davi Schrader MD @ 05/27/2022 9:15:02 PM (Electronically Signed)
--- NOTE | 2022-05-27 20:04 | ED.NAVMDI ---
HPI - Nausea/Vomiting/Diarrhea General Chief complaint: Nausea/Vomiting Stated complaint: Can't keep meds down, Pooping blood Time Seen by Provider: 05/27/22 19:57 History of Present Illness HPI Narrative: Pt is a 51 year old woman making her third visit this week to the ED. She has previously been seen with dehydration and an ear infection. Pt has complaints tonight of pain in her LUQ. The pain is described as a buring. She does have some reflux symptoms as well for which she takes Omeprazole. Pt has had chronic diarrhea and reflux and is an established pt of [facility]. Pt does not believe that she has had an EGD in the past. No other symptoms. No chest pain or sob. No fevers or chills. Pt continues to smoke tobacco daily. Pt states that she has severe pain and would like to be admitted to the hospital. Related Data Home Medications Medication Instructions Recorded Confirmed losartan 50 mg tablet 50 mg PO DAILY 09/17/21 02/10/22 omeprazole 40 mg capsule,delayed 40 mg PO DAILY 09/17/21 02/10/22 release venlafaxine 150 mg 225 mg PO DAILY 09/17/21 02/10/22 capsule,extended release 24 hr famotidine 40 mg tablet 40 mg PO QHS 02/10/22 02/10/22 Previous Rx's Medication Instructions Recorded metoclopramide HCl 10 mg tablet 10 mg PO Q6H PRN nausea and 02/10/22 (Reglan) vomiting #10 tabs potassium chloride 20 mEq 20 meq PO DAILY #10 tabs 02/10/22 tablet,extended release cephalexin 500 mg capsule 500 mg PO TID 7 days #21 caps 05/26/22 Allergies Allergy/AdvReac Type Severity Reaction Status Date / Time bee pollen Allergy Severe Anaphylaxis Verified 05/27/22 19:45 Penicillins Allergy Intermediate Hives Verified 05/27/22 19:45 morphine AdvReac Intermediate Migraine Verified 05/27/22 19:45 ondansetron [From Zofran] AdvReac Intermediate Migraine Verified 05/27/22 19:45 Review of Systems Status of ROS: Reports: 10 or more systems reviewed and unremarkable except as noted in History and below [facility] Medical History (Updated 05/27/22 @ 21:31 by Ferdinand Washington MD) Asthma ?J45.909 - Unspecified asthma, uncomplicated (ICD-10) Chronic GERD ?K21.9 - Gastro-esophageal reflux disease without esophagitis (ICD-10) Degeneration of lumbar or lumbosacral intervertebral disc ?M51.37 - Other intervertebral disc degeneration, lumbosacral region (ICD-10) Displacement of lumbar intervertebral disc ?M51.26 - Other intervertebral disc displacement, lumbar region (ICD-10) Hypertension ?I10 - Essential (primary) hypertension (ICD-10) Lumbar facet arthropathy ?M47.816 - Spondylosis without myelopathy or radiculopathy, lumbar region (ICD-10) Migraine ?G43.909 - Migraine, unspecified, not intractable, without status migrainosus (ICD-10) Nicotine dependence ?F17.200 - Nicotine dependence, unspecified, uncomplicated (ICD-10) Obesity ?E66.9 - Obesity, unspecified (ICD-10) Social History Smoking Status: Current every day smoker What tobacco products do you use: cigarettes Smoking packs per day: 1 Smoking cigarettes per day: 20.0 Do you use any of these nicotine containing products: None Second hand tobacco smoke exposure: No How often do you have a drink containing alcohol: monthly or less How often do you have six or more drinks on one occasion: Never AUDIT-C Alcohol total score: 1 Non-prescribed substance use: marijuana (any form) service: No Exam Narrative: Exam Narrative: EXAM GENERAL: Patient appears comfortable and well. EYES: No scleral icterus. LYMPH: No supraclavicular or cervical lymphadenopathy. SKIN: Visible skin seen during exam normal or with benign process only. EXT: No dependent lower extremity pedal edema. HEART: Regular rate and rhythm with no murmurs, rubs, or gallops. LUNGS: Clear to auscultation bilaterally with no crackles or wheezes. ABD: Soft, non tender, non distended. PSYCH: Good eye contact, speech is not pressured. Const: Vital Signs, click to edit/add: Vital Signs - 24 hr 05/27/22 19:43 05/27/22 20:00 05/27/22 20:19 Temperature 98.2 F Pulse Rate 98 Pulse Rate [Right Pulse Oximeter] 105 H Respiratory Rate 18 Blood Pressure Blood Pressure [Ri ght Upper Arm] 185/92 H Pulse Oximetry 99 99 94 Oxygen Delivery Me thod Room Air 05/27/22 20:34 05/27/22 20:35 05/27/22 20:36 Temperature Pulse Rate 102 H 99 100 Pulse Rate [Right Pulse Oximeter] Respiratory Rate Blood Pressure Blood Pressure [Ri ght Upper Arm] Pulse Oximetry 97 98 96 Oxygen Delivery Me thod 05/27/22 21:32 05/27/22 21:33 Temperature Pulse Rate 82 91 Pulse Rate [Right Pulse Oximeter] Respiratory Rate 16 Blood Pressure 183/88 H Blood Pressure [Ri ght Upper Arm] Pulse Oximetry 99 100 Oxygen Delivery Me thod Course Course Hospital Course: Evaluation from earlier this week reviewed. CBC, Amylase, CMP CT of the abd and pelvis ordered. Normal saline 1 liter bolus given. Reevaluation(s) Reevaluation #1: Pt's status unchanged. CT of abd and pelvis, CBC, CMP, Amylase all unremarkable upon my review. Time: 21:26 Vital Signs Vital signs: Initial Vital Signs Temperature 98.2 F 05/27/22 19:43 Temperature Source Temporal Artery Scan 05/27/22 19:43 Pulse Rate 105 H 05/27/22 19:43 Respiratory Rate 18 05/27/22 19:43 Blood Pressure 185/92 H 05/27/22 19:43 Blood Pressure Mean 123 05/27/22 19:43 Blood Pressure Position Sitting 05/27/22 19:43 Pulse Oximetry 99 05/27/22 19:43 Oxygen Delivery Method Room Air 05/27/22 19:43 Vital Signs Temperature 98.2 F 05/27/22 19:43 Pulse Rate 105 H 05/27/22 19:43 Respiratory Rate 18 05/27/22 19:43 Blood Pressure 185/92 H 05/27/22 19:43 Pulse Oximetry 99 05/27/22 19:43 Oxygen Delivery Method Room Air 05/27/22 19:43 Temperature 98.2 F 05/27/22 19:43 Pulse Rate 91 05/27/22 21:33 Respiratory Rate 16 05/27/22 21:32 Blood Pressure 183/88 H 05/27/22 21:32 Pulse Oximetry 100 05/27/22 21:33 Oxygen Delivery Method Room Air 05/27/22 19:43 MDM - Nausea/Vomiting/Diarrhea MDM Narrative Medical decision making narrative: Pt is a 51 year old woman who presents with abd pain in the LUQ. Work up is unremarkable. Exam and vitals unremarkable with the exception of hypertension. Pt will continue current Omeprazole. She was counselled on smoking cessation. She is an established pt of [facility] and I would recommend following up with an EGD. Pt can take Maalox or similar in the interim. Differential includes: dyspepsia gerd, hiatle hernia, duodenitis, colitis, IBD, Inflamatory Bowel Disease. Lab Data Labs: Lab Results 05/27/22 05/27/22 Range/Units 19:58 19:59 WBC 11.62 H (4.50-11.00) K/uL RBC 4.75 (4.00-5.20) m/uL Hgb 14.6 (12.0-16.0) gm/dL Hct 43.0 (33.0-51.0) % MCV 91 (80-100) fL MCH 31 (26-34) pg MCHC 34 (32-36) gm/dL RDW Coeff of Tracee 12.8 (11.5-15.5) % Plt Count 366 (140-440) K/uL Neut % (Auto) 75.8 H (42.0-72.0) % Lymph % (Auto) 18.6 L (20-44) % Moca % (Auto) 5.2 (0.0-11.0) % Eos % (Auto) 0.0 (0.0-7.0) % Baso % (Auto) 0.3 (0.0-3.0) % Neut # (Auto) 8.80 H (1.7-7.0) K/uL Lymph # (Auto) 2.20 (0.90-2.90) K/uL Moca # (Auto) 0.60 (0.00-0.90) K/UL Eos # (Auto) 0.00 (0.00-0.50) K/uL Baso # (Auto) 0.00 (0.00-0.30) K/uL Sodium 136 (135-149) mmol/L Potassium 4.7 (3.6-5.1) mmol/L Chloride 106 (96-114) mmol/L Carbon Dioxide 23 (20-32) mmol/L BUN 15 (7-30) mg/dL Creatinine 0.6 (0.5-1.5) mg/dL Estimated Creat Clear 101.51 Estimated GFR 107 ml/min Glucose 120 H (60-115) mg/dL Calcium 9.2 (8.4-10.6) mg/dL Total Bilirubin 1.0 (0.1-1.5) mg/dL AST 37 H (12-35) U/L ALT 22 (4-35) U/L Alkaline Phosphatase 81 (40-150) U/L Total Protein 8.1 (6.0-8.3) g/dL Albumin 4.4 (3.3-5.0) g/dL Amylase 62 (18-89) U/L SARS-CoV-2 (PCR) Negative SARS-CoV-2 (Negative) Influenza Type A (PCR) Negative PCR FLU A (Negative) Influenza Type B (PCR) Negative PCR FLU B (Negative) Discharge Plan Discharge Clinical Impression: Dyspepsia Condition: Stable Instructions: GERD (Gastroesophageal Reflux Disease) (ED) Additional Instructions: Maalox as needed Continue Omeprazole twice daily Follow up with [facility] Activity Level: No Restrictions Discharge Diet: Regular Prescriptions: No Action losartan 50 mg tablet 50 mg PO DAILY Patient Comments: TAKE ONE TABLET BY MOUTH EVERY DAY venlafaxine 150 mg capsule,extended release 24hr 225 mg PO DAILY Patient Comments: TAKE ONE CAPSULE BY MOUTH EVERY DAY ALONG WITH 75MG CAPSULE WITH THE EVENING MEAL. omeprazole 40 mg capsule,delayed release(DR/EC) 40 mg PO DAILY Patient Comments: TAKE ONE CAPSULE BY MOUTH EVERY DAY BEFORE A MEAL cephalexin 500 mg capsule 500 mg PO TID 7 Days Qty: 21 0RF famotidine 40 mg tablet 40 mg PO QHS Patient Comments: TAKE ONE TABLET BY MOUTH EVERY DAY metoclopramide HCl [Reglan] 10 mg tablet 10 mg PO Q6H PRN (Reason: nausea and vomiting) Qty: 10 0RF potassium chloride 20 mEq tablet extended release 20 meq PO DAILY Qty: 10 2RF Follow Up/Referrals: Provider,Not a Local [Primary Care Provider] - Stand Alone Forms: MyHealth Info Instructions
[2022-05-27 20:07] LABS: Basophils Percent Auto 0.3 % (0.0-3.0); Hemoglobin* 14.6 gm/dL (12.0-16.0); Immature Granulocytes Pct Auto 0.1 %; Lymphocytes Percent Auto 18.6 % (20-44); Mean Corpuscular HGB Conc 34 gm/dL (32-36); Mean Corpuscular Hemoglobin 31 pg (26-34); Mean Corpuscular Volume 91 fL (80-100); Monocytes Percent Auto 5.2 % (0.0-11.0); Neutrophils Percent Auto 75.8 % (42.0-72.0); Platelet Count* 366 K/uL (140-440); RDW Coefficient of Variation % 12.8 % (11.5-15.5); Red Blood Count 4.75 m/uL (4.00-5.20); White Blood Count* 11.62 K/uL (4.50-11.00)
--- OUTSIDE RECORDS SUMMARY | 2022-05-27 20:18 | XMS_ITS | Continuity of Care Document ---
Author Name Unknown Organization [facility] Address [address] [address] [place] [address] Phone Care Team Providers Care Core Cutter Name Role Phone Silvia Shields Unavailable Unavailable Allergies, Adverse Reactions, Alerts Substance Reaction Status Criticality morphine Nausea/Vomiting Active No Informati on PENICILLIN HivesHives Active No Information WARNIN allergy(ies) could not be collected because the type is not supported. Please contact the source practice for further details. Medications Medication Instructions Dosage Effective Dates (start - stop) Status Comments Chantix 1 mg tablet take 1 tablet by oral route 2 times every day with glass of water after meals 1 MG - Active atorvastatin 20 mg tablet take 1 tablet by oral route every day 20 MG - Active Effexor XR 75 mg capsule,extended release take 1 capsule by oral route every day with food 75 MG - Active omeprazole 40 mg capsule,delayed release take 1 capsule by oral route every day before a meal 40 MG - Active famotidine 40 mg tablet take 1 tablet by oral route every day 40 MG - Active Proair Digihaler 90 mcg/actuation aerosol powder breath act, sensor inhale 2 puff by inhalation route every 4 - 6 hours as needed 180 MCG - Active losartan 50 mg tablet take 1 tablet by oral route every day 50 MG - Active Effexor XR 150 mg capsule,extended release take 1 capsule by oral route every day 150 MG - Active epinephrine 0.3 mg/0.3 mL injection, auto-injector inject 0.3 milliliter by intramuscular route once as needed for anaphylaxis 0.3 MG - Active loperamide 2 mg capsule take 2 capsule b y oral route after 1st loose stool, followed by 1 capsule after each subsequent loose stool not to exceed 16 mg/day 4 MG - Active metoclopramide 10 mg tablet take 1 tablet by oral route 4 times every day 30 minutes before meals and at bedtime 10 MG - Active colestipol 1 gram tablet take 4 tablet by oral route every day swallowing whole with any liquid. Do not crush, chew and/or divide. 4 G - Active bupropion HCl XL 150 mg 24 hr tablet, extended release take 1 tablet by oral route every day 150 MG - Active cyclobenzaprine 10 mg tablet take 1 tablet by oral route 3 times every day as needed 10 MG - Active Vitamin C 500 mg capsule,extended release - Active Vitamin D3 50 mcg (2,000 unit) capsule take 1 capsule by oral route every day 1 capsule - Active Procedures Procedure Date Office Cons New/estab Mod Advance Directives Directive Yes / No Effective Date File Name No Information Encounters Encounter Description Practice Location Reason(s) For Visit Diagnoses Date Provider Providers Copied on Encounter [facility], [address] [address], [place], [place], [id number], tel:[phone] [facility] No Information [facility] Silvia. [address] [facility] [facility] [address], [place], [place], [id number], [place]. tel:[phone] Office Cons New/estab Mod [facility], [address] [address], [place], [place], [id number], tel:[phone] [facility] GI Symptoms or Concerns (chief complaint) Intractable nausea and vomitingDiarr hea, unspecified typePain of upper abdomen [facility] Silvia. [address] [facility] [facility] [address], [place], [place], [id number], [place]. tel:[phone] Referring Provider: Brendan Glover, [address], [place], [address]. tel:[phone] [facility], [address] [address], [place], [place], [id number], [place] tel:[phone] [facility] No Information Dylan Martinez. [address] [facility], [place], [place], [id number], [place]. tel:[phone] Family History Family Member Type Diagnosis Age At Onset Mother Problem (finding) Asthma Father Problem (finding) Alcoholism Father Problem (finding) Cancer, prostate Father Problem (finding) Diverticular disease Son Problem (finding) Asthma Father Problem (finding) Colon polyps Mother Problem (finding) Colon polyps Mother Problem (finding) Cancer Mother Problem (finding) Gallbladder disease Immunizations Vaccine Date Status Comments tetanus toxoid, reduced diphtheria toxoid, and acellular pertussis vaccine, adsorbed administered Note: [facility] b i-directional interface ; Source: Other Registry Influenza, seasonal, injecta ble, preservative free administered Note: [facility] bi-direct ional interface ; Source: Other Registry Influenza, seasonal, injectable administe red Note: [facility] bi- directional interface ; Source: Other Registry Influenza, seasonal, injecta ble, preservative free administered Note: [facility] bi-direct ional interface ; Source: Other Registry Influenza, seasonal, injectable administe red Note: [facility] bi- directional interface ; Source: Other Registry Influenza, seasonal, injectable administe red Note: [facility] bi- directional interface ; Source: Other Registry Influenza, seasonal, injectable administe red Note: [facility] bi- directional interface ; Source: Other Registry Payers Payer name Insurance type Covered alliance party ID Authoriza tion(s) No Information Social History Type Description Quantity Date Captured Comments Alcohol Use Details Unknown Caffeine Use Details Unknown Tobacco Use Status Smoking Status No Information Sex Female Chief Complaint And Reason For Visit No Information Reason For Referral Reason For Referral No Information Plan Of Treatment Date Type Action Status Referral Ordered: CT Enterography With Contrast Per Radiology Appointment date/timeframe: 03/31/2022 ordered Referral Ordered: 5-HIAA,Quant.,24 Hr Urine Appointment date/timeframe: 02/23/2022 ordered Referral Ordered: CT Brain/Head WITHOUT And WITH Contrast Appointment date/timeframe: 03/29/2022 ordered Referral Ordered: Porphyrins,24-Hr Urine Appointment date/timeframe: 02/23/2022 ordered Referral Ordered: Porphobilinogen, Urine Appointment date/timeframe: 02/23/2022 ordered History Of Present Illness Encounter Date Complaint History Of Prese nt Illness GI Symptoms or Concerns This ariel rodriguez is a pleasant 51-year-old female who was seen at the request of Dr. Regalado for evaluation of chronic nausea, vomiting, and diarrhea. Symptoms started 5 years ago, when the patient's spouse got sick and . She developed episodes of significant abdominal pain, nausea, vomiting, and diarrhea. Since then, she has gone no longer than 3 months between episodes. During these episodes, she developed significant left upper quadrant pain that is described as cramping. She will also get pale and sweaty and then start with nausea and vomiting. These symptoms last for about 5 days, and during this time she is unable to eat or drink anything, or keep down pills. She also has significant watery diarrhea during these episodes, which sometimes contains mucus and blood. She stays at home for several days and then must go to the ER for IV fluids and electrolyte replacement. Symptoms will then improve, but then it takes another week for her to feel better, and she may be constipated during that time. Then she will feel relatively normal for several weeks until symptoms show up again. These symptoms have been very debilitating to the patient. She lost her job at [employer] after working there for many years, because she was missing so much work. Patient has been following with Dr. Regalado at [facility]. I do not have complete records, but good summary of her previous evaluation. Patient has had upper endoscopy, colonoscopy, CT scan, gastric emptying study that were unremarkable. She does have elevated CRP when she presents to the ER, most recently 1.8. She is status post cholecystectomy, with no improvement in symptoms. She does use marijuana daily, which helps with daily baseline nausea. She did try giving this up for 6 months, but episodes did not subside. Further testing was ordered by Dr. Regalado including fecal calprotectin and fecal elastase. She was referred to [facility] for further evaluation. 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 Currently she is on omeprazole 40 milligrams every morning, and famotidine 40 milligrams in the evening. She states Zofran does not help and causes headaches. She has Reglan which helps with headaches, but not her nausea and vomiting. She has taken Imodium with little relief, and was previously prescribed cholestyramine but that caused vomiting. Medical history is significant for, anxiety, depression, asthma, GERD, obesity. She denies family history of colon cancer, IBD, or other GI disease. Functional Status Date Functional Assessmen t No Information Instructions Date Instruction Additional Infor mation No Information Assessments Type Assessment Date No Information Patient Care Teams Name Effective Dates (start - stop) Status Members No Information
[2022-05-27 20:19] LABS: Slide Review Reflex No
[2022-05-27 20:20] LABS: Albumin* 4.4 g/dL (3.3-5.0); Chloride* 106 mmol/L (96-114); Potassium* 4.7 mmol/L (3.6-5.1); Sodium* 136 mmol/L (135-149)
[2022-05-27 20:22] LABS: Amylase* 62 U/L (18-89); Carbon Dioxide* 23 mmol/L (20-32); Creatinine* 0.6 mg/dL (0.5-1.5); Est. Creatinine Clearance* 101.51; Estimated Glomerular Filt Rate 107 ml/min
[2022-05-27 20:23] LABS: Alanine Aminotransferase* 22 U/L (4-35); Alkaline Phosphatase* 81 U/L (40-150); Aspartate Amino Transferase* 37 U/L (12-35); Blood Urea Nitrogen* 15 mg/dL (7-30); Calcium* 9.2 mg/dL (8.4-10.6); Glucose* 120 mg/dL (60-115); Total Protein* 8.1 g/dL (6.0-8.3)
[2022-05-27 20:41] LABS: PCR FLU A Negative PCR FLU A (Negative); PCR FLU B Negative PCR FLU B (Negative)
[2022-05-27 20:42] LABS: SARS PCR* Negative SARS-CoV-2 (Negative)
[2022-05-27] MEDS: GI COCKTAIL (VISC LIDO/ANTACID) 30 ML PO (21:45)
== END 2022-05-27 21:53 | disposition home or self-care (01) ==
PROVIDERS: Emergency Provider Internal Medicine
DX: R10.13 Epigastric pain (principal)
CPT/HCPCS: 36415; 74177; 80053; 82150; 85025; 87631; 94761; 96374; 99283; 99284; 99285; A9270; J2405; J7030; Q9967

== ENCOUNTER 2023-04-17 07:27 | Outpatient (CLI) | payer OTHER, BC, SELFPAY ==
--- OUTSIDE RECORDS SUMMARY | 2023-04-17 07:32 | XMS_ITS | Clinical Summary ---
Author Name Unknown Organization [facility] Address [place], [place] [address] Care Team Providers Care Room Service Clerk Name Role Phone Shawna Dominguez MD Primary Care Provider Allergies Active Allergy Reactions Criticality Noted Date Comments Hymenoptera Allergenic Extract Anaphylaxis High Morphine Headache 01/01/2018 Pt reported migraine Penicillins Hives Ondansetron Headache 07/06/2022 Medications Medication Sig Dispensed Refills Start Date End Date Status ORDER - MEDICATION ORDER COMPOSERIndications :Elevated blood pressure reading without diagnosis of hypertension Blood pressure monitor for home use for elevated BP 1 Kit 0 05/13/2011 Active ascorbic acid, vitamin C, (VITAMIN C) 500 mg tablet Take 1 tablet by mouth once daily. 0 02/21/2018 Active Cholecalciferol, Vitamin D3, (VITAMIN D-3) 2,000 unit tablet Take 1 tablet by mouth once daily. 0 02/21/2018 Active cyclobenzaprine (FLEXERIL) 10 mg tabletIndications:M uscle spasm,Lumbar back pain Take 1 tablet by mouth 2 times daily if needed for Muscle Spasm. 30 tablet 0 10/14/2019 Active loperamide (IMODIUM) 2 mg capsuleIndications: Vomiting and diarrhea Take 4mg by mouth with 1st loose stool, then 2mg with each subsequent loose stool. Max 16 mg in 24 hrs 10 Capsule 0 09/14/2021 Active metoclopramide HCl (REGLAN) 10 mg tabletIndications:V omiting and diarrhea Take 1 Tablet (10 mg) by mouth every 6 hours if needed for Nausea/Vomiting. 10 Tablet 0 09/14/2021 Active EPINEPHrine (EpiPen) 0.3 mg/0.3 mL auto-injectorIndica tions:Bee sting allergy Inject 0.3 mg intramuscular one time if needed for Allergic Reaction. 2 Each 0 11/20/2021 Active varenicline (CHANTIX DOSEPAK) 0.5 mg (11)- 1 mg (42) tabletIndications:E ncounter for smoking cessation counseling Days 1-3 take 0.5mg once daily; Days 4-7 take 0.5mg twice daily; then increase to 1mg twice daily. Take with meals. 1 Packet 0 01/05/2023 Active varenicline (CHANTIX) 1 mg tabletIndications:E ncounter for smoking cessation counseling Take 1 mg by mouth two times daily with meals. 112 Tablet 0 01/05/2023 Active losartan (COZAAR) 50 mg tabletIndications:E ssential hypertension Take 1 Tablet (50 mg) by mouth once daily. 90 Tablet 3 01/05/2023 Active omeprazole (PRILOSEC) 40 mg Delayed-Release capsuleIndications: Gastroesophageal reflux disease with esophagitis without hemorrhage,Hiatal hernia Take 1 Capsule (40 mg) by mouth once daily before a meal. 90 Capsule 3 01/05/2023 Active polyethylene glycol-electrolyte (GOLYTELY) 236-22.74-6.74 -5.86 gram suspensionIndicatio ns:Colon cancer screening Drink 2 liters (1/2 of prep) the day before colonoscopy and drink 2 liters (other 1/2 of prep) 6 hours before colonoscopy appointment. 4000 mL 0 01/06/2023 Active atorvastatin (LIPITOR) 40 mg tabletIndications:M ixed hyperlipidemia Take 1 Tablet (40 mg) by mouth at bedtime. 90 Tablet 3 01/10/2023 Active albuterol HFA (PRO-AIR; VENTOLIN; PROVENTIL) 90 mcg/actuation inhalerIndications: Mild intermittent asthma without complication Inhale 2 Puffs by mouth every 4 hours if needed for Shortness of Breath 1st choice or Wheezing 2nd choice. 36 g 1 02/09/2023 Active venlafaxine (EFFEXOR XR) 150 mg Extended-Release capsuleIndications: Anxiety Take 1 Capsule (150 mg) by mouth once daily with evening meal. 90 Capsule 3 02/09/2023 Active gabapentin (NEURONTIN) 100 mg capsuleIndications: Chronic pain of left knee 3 CAPSULES BY MOUTH AT NIGHT 270 Capsule 3 02/27/2023 Active Active Problems Problem Noted Date Diagnosed Date Prediabetes 01/06/2023 Pap smear for cervical cancer screening 03/11/19 Overview: 1995: [place] 02/02/2022: NIL/HPV neg Plan: Pap and HPV due in 5 years. SHERITA (generalized anxiety disorder) 07/19/2021 Tobacco use disorder 06/24/2020 Sigmoid diverticulosis 12/26/2017 Overview: Noted on colonoscopy on 12/13/2017 Routine adult health maintenance 12/15/2017 Overview: Colonoscopy 12/2017 hyperplastic polyp, repeat in 10 years Adjustment disorder with depressed mood 06/28/19 18 Elevated serum hCG 06/24/2017 Irritable bowel syndrome wit h both constipation and diarrhea 06/22/2017 Bee sting allergy 06/22/2017 Pain medication agreement 04/10/2014 Nonintractable migraine, unspecified migraine ty pe 03/06/2014 Lumbar facet arthropathy 05/22/2013 Hiatal hernia 06/06/2012 Essential hypertension 03/28/2008 Gastroesophageal reflux disease with esophagitis 03/28/2008 Overview: EGD 04/2010 eosinophil esophagitis, gastroesophogeal reflux disease EGD 11/2017 reflux, hiatal hernia, bile, try questran Degeneration of lumbar or lumbosacral interverte bral disc 03/24/2008 Impaired fasting glucose 10/24/2007 Pure hypercholesterolemia 10/24/2007 Morbid obesity with BMI of 40.0-44.9, adult L5-S1 disk bulge with DDD Mild intermittent asthma without complication Resolved Problems Problem Noted Date Diagnosed Date Resolved Date Dyslipidemia 10/01/2015 10/01/2015 Overview: Low HDL Nonintractable migraine 12/04/201406/04 Ingrowing nail 07/31/2008 03/31/2014 Migraine 12/04/2014 Encounters Date Type Department Care Team Description 04/14/2023 Travel 04/04/2023 4:05 PM TELEGRAPHIC TYPEWRITER OPERATOR Preop Visit [facility] [address] [place] [address] Shawna Dominguez MD Pre-Op Exam (04/17/23, Colonoscopy, Dr Regalado, [facility]) 04/04/2023 Travel 02/24/2023 Refill [facility] [address] [place] [facility] [address] Shawna Dominguez MD Refill Request (Gabapentin) 02/09/2023 9:35 AM TELEGRAPHIC TYPEWRITER OPERATOR Office Visit [facility] [address] [place] [address] Shawna Dominguez MD Medication Management 02/09/2023 Travel from Last 3 Months Immunizations Name Administration Dates Next Due Influenza, IIV3 (Age 6-35 mos) 01/07/2011,2008 Influenza, IIV3 (Age >=3 years) 12/23/2009,12/18,12/12/2005,12/17/2002 Td (Age >=7 Years) 05/02/2002 Tdap 02/09/2023,06/06/2012 Family History Medical History Relation Name Comments Asthma Child son Alcohol/Drug Father b 1945 recoveri ng alcoholic Other Father PADz with repla ck abd aorta Cancer Maternal Grandfather lymph n odes Heart Disease Maternal Grandmother NH Cancer Mother b 194 [place] insid e cheek Hyperlipidemia Mother Hypertension Mother Cancer-prostate Paternal Grandfather Cancer Paternal Grandmother lung, [place], female organs Heart Disease Paternal Grandmother NH Cancer-breast No Family History Relation Name Status Comments Child Father Maternal Grandfather Maternal Grandmother Mother Paternal Grandfather Paternal Grandmother Social History Tobacco Use Types Packs/Day Years Used Date Smoking Tobacco: Former Cigarettes 0.5 36.1 1 - 12/05/2015 Smokeless Tobacco: Never Tobacco Cessation:Counseling Given: Not Answered Comments:has chantix at home. will be starting wellbutrin Alcohol Use Standard Drinks/Week Comments Yes 0 (1 standard drink = 0.6 oz pur e alcohol) occasional glass of wine PHQ-2 Answer Date Recorded PHQ-2 TOTAL SCORE 5 01/05/2023 Social Connections Answer Date Recorded Frequency of Communication with Friends and Fami ly 0 05/23/2022 Financial Resource Strain Answer Date R ecorded Difficulty of Paying Living Expenses 3 05/23/2022 Difficulty of Paying Living Expenses Not on file 05/23/2022 Food Insecurity Answer Date Recorded Worried About Running Out of Food in the Last Ye ar 1 05/23/2022 Transportation Needs Answer Date Record ed Lack of Transportation (Medical) 1 05/23/2022 Housing Stability Answer Date Recorded Unable to Pay for Housing in the Last Year 1 05/23/2022 Sex and Gender Information Value Date Recorded Sex Assigned at Not on file Gender Identity Not on file Sexual Orientation Not on file Obstetrics History Para Term AB IAB SAB Ectopic Multiple Livin g Live Births 3 3 3 0 0 0 0 0 3 Date Outcome GA Total Labor Labor/2nd/3rd Weight Sex Delivery Anes PTL Aubrie A1 A5 Name Cl in Term Term Term Comments x3 Last Filed Vital Signs Vital Sign Reading Time Taken Comments Blood Pressure 113/70 04/04/2023 4:12 PM TELEGRAPHIC TYPEWRITER OPERATOR Pulse 78 04/04/2023 4:12 PM TELEGRAPHIC TYPEWRITER OPERATOR Temperature 36.8 ??C (98.3 ??F) 05/24/2022 8:20 AM CD T Respiratory Rate 18 06/02/2022 1:33 PM CDT Oxygen Saturation 98% 04/04/2023 4:12 PM TELEGRAPHIC TYPEWRITER OPERATOR Inhaled Oxygen Concentration - - Weight 98.9 kg (218 lb) 04/04/2023 4:12 PM TELEGRAPHIC TYPEWRITER OPERATOR Height 167.5 cm (5' 5.95) 04/04/2023 4:12 PM CS T Body Mass Index 35.24 04/04/2023 4:12 PM TELEGRAPHIC TYPEWRITER OPERATOR Plan of Treatment Health Maintenance Due Date Last Done Comments COVID-19 vaccine series (#1) 05/06/1969 Pneumococcal series for age 6-64 (1 of 2 - PCV) 1974 HIV for age 15-65 11/07/1983 Hepatitis C screening for ag e 18-79 1986 Mammogram for age 45-75 09/30/2016 10/01/19 16, 05/13/2011, 05/13/2011, Additional history exists Zoster (shingles) series for age 50+ (1 of 2) 2018 Influenza for age 50-64 11/04/2022 12/24/19 10, 12/19/2007, 12/12/2005, Additional history exists Depression screening for age 12+ 01/07/2024 01/06/2023, 01/05/2023, 01/05/2023, Additional history exists BMI (ht and wt on same day) for age 18+ 04/04/2024 04/04/2023, 01/05/2023, 06/22/2020, Additional history exists Pap test for age 21-65 02/02/2027 , 02/02/2022, 10/01/2015, Additional history exists Lipids for age 45-75 01/06/2028 01/05/2023, 02/02/2022, 06/22/2020, Additional history exists Tetanus booster 02/09/2033 02/09/2023, 04/05/2012, 06/06/2012, Additional history exists Colonoscopy through age 75 04/17/203304/17, 12/13/2017, 12/13/2017, Additional history exists Tdap Completed 02/09/2023, 06/06/2012 Procedures Procedure Name Priority Date/Time Associated Diagnosis Comments COLONOSCOPY DIAGNOSTIC Routine 04/17/2023 6:47 AM TELEGRAPHIC TYPEWRITER OPERATOR BRBPR (bright red blood per rectum) POTASSIUM Routine 04/04/2023 4:40 PM TELEGRAPHIC TYPEWRITER OPERATOR Pre-op exam from Last 3 Months Results * POTASSIUM (04/04/2023 4:40 PM TELEGRAPHIC TYPEWRITER OPERATOR) POTASSIUM 4.4 3.5 - 5.1 mmol/L 04/05/2023 4:42 PM TELEGRAPHIC TYPEWRITER OPERATOR [facility] [employer] [facility] Blood BLOOD SPECIMEN / Unknown Venipuncture / Unknown 04/04/2023 4:40 PM TELEGRAPHIC TYPEWRITER OPERATOR 04/04/2023 4:44 PM TELEGRAPHIC TYPEWRITER OPERATOR Shawna Dominguez MD CHEMISTRY [facility] [address] [place] [address], from Last 3 Months Advance Directives Latest Code Status on File Code Status Date Activated Date Inactivated Comments Full Code 04/01/2014 4:00 PM 04/02/2014 1:31 PM Code Status History Code Status Date Activated Date Inactivated Comments Full Code 04/01/2014 8:40 AM 04/01/2014 4:00 PM Care Teams Room Service Clerk Relationship Specialty Start Date End Date Shawna Dominguez MD [address] [place] [address] PCP - General Family Practice 07/06/22
--- OUTSIDE RECORDS SUMMARY | 2023-04-17 07:32 | XMS_ITS | Clinical Summary ---
Author Name Unknown Organization [facility] Address [address] [place] [id number] Care Team Providers Care Technical Planner Name Role Phone No Ref-Primary, Physician Primary Care Provider Allergies Active Allergy Reactions Criticality Noted Date Comments Bees Anaphylaxis High 04/05/2022 Morphine Headache 04/05/2022 Penicillins Anaphylaxis High 04/05/2022 Medications No known medications Social History Tobacco Use Types Packs/Day Years Used Date Smoking Tobacco: Never Assessed Adolescent Education Answer Date Record ed Getting School Help Needed Not on file 11/26 Sex and Gender Information Value Date Recorded Sex Assigned at Not on file Gender Identity Not on file Sexual Orientation Not on file Plan of Treatment Health Maintenance Due Date Last Done Comments ADVANCE CARE PLANNING 1968 ANNUAL REVIEW OF HM ORDERS 1968 CT COLONOGRAPHY 1968 FIT 1968 FLEX SIG 1968 GLUCOSE 1968 HEPATITIS B IMMUNIZATION (1 of 3 - 3-dose series) 1968 MAMMO SCREENING 1968 sDNA (Cologuard) 1968 COVID-19 Vaccine (#1) 05/06/1969 COLONOSCOPY 1978 COLORECTAL CANCER SCREENING 1978 HIV SCREENING 11/07/1983 HEPATITIS C SCREENING 1986 PAP 1989 LIPID 2008 YEARLY PREVENTIVE VISIT 07/07/2022 07/07/2021 INFLUENZA VACCINE (#1) 2022 PHQ-2 (once per calendar year) 2023 DTAP/TDAP/TD IMMUNIZATION (3 - Td or Tdap) 04/25/2029 04/25/2019, 08/07/2008 ZOSTER IMMUNIZATION Completed 04/14/2021, 02/09/2021 HPV IMMUNIZATION Aged Out No longer e ligible based on patient's age to complete this topic IPV IMMUNIZATION Aged Out No longer e ligible based on patient's age to complete this topic MENINGITIS IMMUNIZATION Aged Out No l onger eligible based on patient's age to complete this topic Pneumococcal Vaccine: Pediatrics (0 to 5 Years) and At-Risk Patients (6 to 64 Years) Aged Out No longer eligible b ased on patient's age to complete this topic RSV MONOCLONAL ANTIBODY Aged Out No l onger eligible based on patient's age to complete this topic Care Teams Technical Planner Relationship Specialty Start Date End Date No Ref-Primary, Physician PCP - General 04/05/22
--- OUTSIDE RECORDS SUMMARY | 2023-04-17 07:32 | XMS_ITS | Referral Summary ---
Author Name Unknown Organization [facility] Address [address] [place] [address] Care Team Providers Care Electronic Calibration Technician Name Role Phone No Ref-Primary, Physician Primary [...] Orientation Not on file Plan of Treatment Not on file Care Teams Electronic Calibration Technician Relationship Specialty Start Date End Date No Ref-Primary, Physician PCP - General 04/05/22
--- NOTE | 2023-04-17 08:32 | W.ANESCHARGE ---
Anesthesia Charges Start Date/Time Anesthesia Start Date: 04/17/23 Anesthesia Start Time: 08:00 Stop Date/Time Anesthesia Stop Date: 04/17/23 Anesthesia Stop Time: 08:30
--- NOTE | 2023-04-17 12:12 | W.ANESCHARGE ---
Anesthesia Charges Start Date/Time Anesthesia Start Date: 04/17/23 Anesthesia Start Time: 08:00 Stop Date/Time Anesthesia Stop Date: 04/17/23 Anesthesia Stop Time: 08:30
== END 2023-04-17 07:28 | disposition home or self-care (01) ==
PROVIDERS: PCP Family Medicine; Visit Provider Internal Medicine Gastroenterology
DX: K92.1 Melena (principal); K64.8 Other hemorrhoids; K63.5 Polyp of colon; K57.30 Diverticulosis of large intestine without perforation or abscess without bleeding; R19.7 Diarrhea, unspecified
CPT/HCPCS: 00811; 45380; 45385; 88305; J2704

== ENCOUNTER 2023-11-20 08:52 | Emergency (ER) | payer OTHER, BC, SELFPAY ==
--- NOTE | 2023-11-20 | CRLHL7_ITS ---
For Patients: As a result of the Century Cures Act, medical imaging exams and procedure reports are released immediately into your electronic medical record. You may view this report before your referring provider. If you have questions, please contact your health care provider. Indication: AMS. CODE BLUE. PT INTUBATED AND STARTED MOVING DURING EXAM Technique: CT chest/abdomen/pelvis with IV contrast Comparison: CT abdomen/pelvis on May 27, 2022 Findings: Motion degraded exam. Chest: No thyroid nodules. No pathologically enlarged lymph nodes throughout the thorax. The heart is within normal limits in size. No pericardial effusion. No coronary artery calcifications. The ascending thoracic aorta measures 4.0 centimeters in diameter. The main portal vein is dilated to 3.7 centimeters which can be seen with pulmonary arterial hypertension. There is no focal airspace consolidation, pleural effusion, or pneumothorax. There is mild dependent and bibasilar atelectatic changes. No suspicious pulmonary nodules or masses. Sub 6 millimeter perifissural triangular shaped nodular opacity seen along the right major fissure favored to represent a benign intrapulmonary lymph node, unchanged. The airways are clear. The endotracheal tube is approximately 2.1 centimeters above the cameron. There is a small amount of fluid seen within the minimally distended esophagus. Abdomen/pelvis: The patient is status post cholecystectomy. No biliary ductal dilatation. No suspicious focal hepatic lesions. Similar appearing low-density 1.5 centimeter lesion in the spleen, grossly unchanged dating back to 2018, likely benign. The pancreas and adrenal glands are unremarkable. The kidneys, ureters, and bladder are unremarkable in appearance. The uterus and bilateral adnexa are unremarkable in appearance. Small hiatal hernia. There is no evidence of bowel obstruction or inflammation. The appendix is normal in appearance. Few colonic diverticula without CT evidence of acute diverticulitis. No free fluid or free air. No abscess. No abdominopelvic lymphadenopathy. The vasculature is within normal limits in appearance. Minimal calcific atherosclerosis of the infrarenal abdominal aorta. Soft tissue/musculoskeletal: Round lesion in the left superior breast measuring approximally 1.3 centimeters, with peripheral soft tissue attenuation, incompletely characterized on this exam. Minimal diastasis recti with small fat containing umbilical hernia. Small right and moderate left fat containing inguinal hernias. No acute fracture or malalignment. There is some mild degenerative changes seen throughout the spine. No suspicious osseous lesions. Impression: 1. No CT evidence of an acute process involving the chest, abdomen, or pelvis. 2. Round lesion in the left superior breast measuring approximally 1.3 centimeters, with peripheral soft tissue attenuation, incompletely characterized on this exam. Recommend correlation with prior imaging and outpatient mammogram if not recently performed. 3. Additional incidental findings as detailed above. Please note that all CT scans at this facility use dose modulation, iterative reconstruction, and/or weight-based dosing when appropriate to reduce radiation dose to as low as reasonably achievable. Dictated by Kennedy Taylor MD @ 11/20/2023 10:52:13 AM (Electronically Signed)
--- NOTE | 2023-11-20 | CRLHL7_ITS ---
For Patients: As a result of the Century Cures Act, medical imaging exams and procedure reports are released immediately into your electronic medical record. You may view this report before your referring provider. If you have questions, please contact your health care provider. INDICATION: Post intubation COMPARISON: November 21, 2017 TECHNIQUE: Single-view AP supine study of the chest FINDINGS: TUBES AND LINES: Endotracheal tube appears to be normally located HEART AND MEDIASTINUM: The heart size is normal. The mediastinal contour appears normal for patient age. LUNGS AND PLEURAL SPACES: The lungs appear normal.The pleural spaces are unremarkable. OSSEOUS STRUCTURES: Age-appropriate appearance. No acute focal finding. IMPRESSION: No evidence of active pulmonary disease. Endotracheal tube appears to be normally located. Lungs and pleural spaces appear normal. No visible acute osseous abnormality on this single-view study Dictated by Juan Bueno MD @ 11/20/2023 10:12:26 AM (Electronically Signed)
--- NOTE | 2023-11-20 | CRLHL7_ITS ---
For Patients: As a result of the Century Cures Act, medical imaging exams and procedure reports are released immediately into your electronic medical record. You may view this report before your referring provider. If you have questions, please contact your health care provider. Indication: Altered mental status, code blue Technique: Volumetric multidetector CT images of the head were obtained without the administration of low osmolar intravenous contrast. Comparison: None available Findings: There is no intra-axial or extra-axial fluid collection. There is no mass effect or midline shift. The ventricles and sulci are normal in size and position for age. The brain parenchyma is grossly preserved in attenuation and pruitt-white differentiation. The orbits and their contents are grossly within normal limits. The bony calvarium is grossly intact. The paranasal sinuses are clear. The mastoid air cells are well aerated. Impression: No acute intracranial abnormality. Please note that all CT scans at this facility use dose modulation, iterative reconstruction, and/or weight-based dosing when appropriate to reduce radiation dose to as low as reasonably achievable. Dictated by Simba Doherty MD @ 11/20/2023 10:32:11 AM (Electronically Signed)
[2023-11-20 09:06] VITALS: BP 165/98; PULSE 94; RESP 20; TEMP 35.3; O2SAT 99; BMI 38.7
[2023-11-20 09:27] VITALS: O2SAT 100
--- NOTE | 2023-11-20 09:33 | ED_ITS ---
HPI - Nausea/Vomiting/Diarrhea General Date Seen: 11/20/23 Chief complaint: Nausea/Vomiting Stated complaint: Nausea, feels very sick Time Seen by Provider: 11/20/23 09:15 Source: patient and family Mode of arrival: ambulatory Limitations: no limitations History of Present Illness HPI Narrative: Patient is a 53-year-old female who presents here with approximately 12 hours of vomiting, she tells me she has vomited a number of bone the amount of times, she is now vomiting up green bile. She complains of abdominal pain in her epigastric centralized area. Associated with this there is no radiation, she denies blood in her vomitus. She tells me she thinks she had a fever at home but when I ask her if she checked her temperature she says no. Denies any dysuria frequency, there is no history of abnormal bowel movements, or lack of. She is unable to tell me what operation she has had on her abdomen, which is concerning. I initially meet her in she is wearing dark glasses, when I asked her she had a headache she said no she has abdominal pain. Her , is with her. He was working all night, and came home and she told him that take her to the emergency department. He denies that she is suicidal or depressed, she did not overdose on medications as far as he knows, denies the that she takes alcohol, admits that she takes marijuana, no history of anything else for drugs. No history as far as he knows of falls trauma, no other COVID symptoms Does have a history abdominal discomfort, with nausea vomiting has been seen here before for this. MD elicited complaint: nausea, vomiting and abdominal pain Description of vomiting: bilious Associated nausea: Yes Associated abdominal pain: Yes Location of pain: epigastric and periumbilical Pain consistency: constant Severity: severe Quality: stabbing Exacerbating factors: movement Relieving factors: none Context: marijuana use Associated symptoms: myalgias, fever/chills, malaise and nausea/vomiting Treatment prior to arrival: none Related Data Home Medications ?Medication ?Instructions ?Recorded ?Confirmed losartan 50 mg tablet 50 mg PO DAILY 09/17/21 11/20/23 omeprazole 40 mg capsule,delayed 40 mg PO DAILY 09/17/21 11/20/23 release venlafaxine 150 mg 225 mg PO DAILY 09/17/21 11/20/23 capsule,extended release 24 hr famotidine 40 mg tablet 40 mg PO QHS 02/10/22 11/20/23 atorvastatin 40 mg tablet 40 mg PO QPM 11/20/23 11/20/23 gabapentin 100 mg capsule 300 mg PO QPM 11/20/23 11/20/23 gabapentin 300 mg capsule 300 mg PO QPM 11/20/23 11/20/23 triamcinolone acetonide 0.1 % topical 3XD 11/20/23 topical ointment Previous Rx's ?Medication ?Instructions ?Recorded metoclopramide HCl 10 mg tablet 10 mg PO Q6H PRN nausea and 02/10/22 (Reglan) vomiting #10 tabs potassium chloride 20 mEq 20 meq PO DAILY #10 tabs 02/10/22 tablet,extended release cephalexin 500 mg capsule 500 mg PO TID 7 days #21 caps 05/26/22 Allergies Allergy/AdvReac Type Severity Reaction Status Date / Time bee pollen Allergy Severe Anaphylaxis Verified 11/20/23 11:38 Penicillins Allergy Intermediate Hives Verified 11/20/23 11:38 morphine AdvReac Intermediate Migraine Verified 11/20/23 11:38 ondansetron [From Zofran] AdvReac Intermediate Migraine Verified 11/20/23 11:38 Review of Systems Status of ROS: Reports: unobtainable due to mental status GI: Reports: nausea PFSH PFSH Medical History Obesity ?E66.9 - Obesity, unspecified (ICD-10) Lumbar facet arthropathy ?M47.816 - Spondylosis without myelopathy or radiculopathy, lumbar region (ICD-10) Nicotine dependence ?F17.200 - Nicotine dependence, unspecified, uncomplicated (ICD-10) Migraine ?G43.909 - Migraine, unspecified, not intractable, without status migrainosus (ICD-10) Displacement of lumbar intervertebral disc ?M51.26 - Other intervertebral disc displacement, lumbar region (ICD-10) Degeneration of lumbar or lumbosacral intervertebral disc ?M51.37 - Other intervertebral disc degeneration, lumbosacral region (ICD-10) Asthma ?J45.909 - Unspecified asthma, uncomplicated (ICD-10) Hypertension ?I10 - Essential (primary) hypertension (ICD-10) Chronic GERD ?K21.9 - Gastro-esophageal reflux disease without esophagitis (ICD-10) Social History Smoking Status: Current every day smoker What tobacco products do you use: cigarettes Smoking packs per day: 1 Smoking cigarettes per day: 20.0 Do you use any of these nicotine containing products: None Second hand tobacco smoke exposure: No How often do you have a drink containing alcohol: monthly or less How often do you have six or more drinks on one occasion: Never AUDIT-C Alcohol total score: 1 Non-prescribed substance use: marijuana (any form) service: No Exam Narrative: Exam Narrative: I find her in room 3, wearing dark glasses, she is unable to tell me what operation she has had, or the medication she is currently taking she does however note time and place and person, her pupils are equal round reactive to light she does not have nystagmus, we are not pinpoint. Her TMs bilaterally are normal, cranial nerves 3-12 are normal, oropharynx is a little dr, but otherwise normal,. Her neck is supple there is no meningismus noted, no lymphadenopathy anterior posterior chains. Chest is good air entry bilaterally she is able to sit up for me in the room. Heart sounds no clicks murmurs or gallops her abdomen is initially tender in the epigastric but when distracted she does not have a lot of tenderness, there is no peritoneal signs quiet bowel sounds no organomegaly and she is obese, she does have a bit of a rash that looks like some sort of tinea, contact dermatitis on the left lower quadrant, no CVA tenderness is noted she moves all extremities independently and well, there is no swelling or redness noted, neurologically absence of tremors, good power both distally and proximally follows my commands, Const: Vital Signs, click to edit/add: Vital Signs - 24 hr 11/20/23 09:06 Temperature 95.6 F L Pulse Rate [Pulse Oximeter] 94 Respiratory Rate 20 Blood Pressure [Ri ght Upper Arm] 165/98 H Pulse Oximetry 99 Oxygen Delivery Me thod Room Air Documenting provider has reviewed patient's vital signs: yes Course Course ED Course: Unfortunately I was called into the room, as patient was having a grand mal seizure, we called a code blue. IV was started, on the left side, she was rolled on her side, she received oxygen, seizure was somewhat prolonged, after approximately 5-6 minutes, she received IV Versed, she was then loaded with Keppra, given the fact that we would half to control her airway, anesthesia was there and using RSI use of etomidate, and succinylcholine we were able to intubate with a 7.5 ET tube, she then received Keppra IV, Ativan, fentanyl, propofol drip was started, for ongoing sedation. Glucose was checked and was 250. Once we had secured her airway, no further seizure activity, she was taken over to the CT scanner, head unenhanced, and chest abdomen and pelvis was done with IV contrast. She was brought back to stabilization room 1. Propofol was titrated up to 45 milligrams/hour. This did give us good sedation. NG tube, Grullon catheter replaced. She had received, Rocephin for antibiotic prophylaxis, Laboratory work returned, elevated white count, elevated lactate, mildly elevated sodium, elevated potassium, low 2 CO2, with anion gap Chest x-ray confirmed good placement of the ET tube, just above the cameron. I spoke to Dr. Naveed Hoff ICU facing machine operator [facility], he accepted the patient in transport for status epilepticus, possible sepsis, or at toxidrome Initial read on the CT by myself showed no acute abnormality of her head, CT back chest abdomen and pelvis pending. Total time of critical care time with patient 90 minutes Vital Signs Vital signs: Initial Vital Signs Temperature 95.6 F L 11/20/23 09:06 Temperature Source Temporal Artery Scan 11/20/23 09:06 Pulse Rate 94 11/20/23 09:06 Respiratory Rate 20 11/20/23 09:06 Blood Pressure 165/98 H 11/20/23 09:06 Blood Pressure Mean 120 H 11/20/23 09:06 Blood Pressure Position Sitting 11/20/23 09:06 Pulse Oximetry 99 11/20/23 09:06 Oxygen Delivery Method Room Air 11/20/23 09:06 Vital Signs Temperature 95.6 F L 11/20/23 09:06 Pulse Rate 94 11/20/23 09:06 Respiratory Rate 20 11/20/23 09:06 Blood Pressure 165/98 H 11/20/23 09:06 Pulse Oximetry 99 11/20/23 09:06 Oxygen Delivery Method Room Air 11/20/23 09:06 Temperature 95.6 F L 11/20/23 09:06 Pulse Rate 94 11/20/23 09:06 Respiratory Rate 20 11/20/23 09:06 Blood Pressure 165/98 H 11/20/23 09:06 Pulse Oximetry 99 11/20/23 09:06 Oxygen Delivery Method Room Air 11/20/23 09:06 MDM - Nausea/Vomiting/Diarrhea MDM Narrative Medical decision making narrative: Differential diagnosis includes but is not limited to viral gastroenteritis, drug food poisoning, pyloric stenosis, gastritis, pancreatitis, hepatitis, cholecystitis, appendicitis, bowel obstruction, hyperemesis, cyclic vomiting syndrome, bulimia nervosa, migraine headache, motion sickness and medication side effect. These include the life threatening complications of appendicitis, drug food poisoning and bowel obstruction. During the evaluation of this patient I considered multiple differential diagnosis including life-threatening differentials which are appendicitis, aortic aneurysm, mesenteric ischemia, bowel perforation, ectopic , volvulus and bowel obstruction, other differential diagnosis include but are not limited to inflammatory bowel disease, cholecystitis, pancreatitis, hepatitis, gastritis, GERD, diverticulitis, peptic ulcer disease, pyelonephritis/UTI, renal colic/stone, pelvic inflammatory disease, cervicitis, endometritis, intrauterine , dysfunctional uterine bleeding, ovarian cyst/torsion, spontaneous as well as other etiologies Medical Records Attestation: I reviewed the patient's medical records. Lab Data Attestation: I reviewed the patient's lab results. Labs: Lab Results 11/20/23 11/20/23 11/20/23 Range/Units 09:47 09:47 09:47 WBC 19.00 H (4.50-11.00) K/uL RBC 5.04 (4.00-5.20) m/uL Hgb 15.7 (12.0-16.0) gm/dL Hct 49.0 (33.0-51.0) % MCV 97 (80-100) fL MCH 31 (26-34) pg MCHC 32 (32-36) gm/dL RDW Coeff of Tracee 13.7 (11.5-15.5) % Plt Count 398 (140-440) K/uL Neut % (Auto) 82.5 H (42.0-72.0) % Lymph % (Auto) 13.6 L (20-44) % [place] % (Auto) 3.5 (0.0-11.0) % Eos % (Auto) 0.0 (0.0-7.0) % Baso % (Auto) 0.1 (0.0-3.0) % Neut # (Auto) 15.70 H (1.7-7.0) K/uL Lymph # (Auto) 2.60 (0.90-2.90) K/uL [place] # (Auto) 0.70 (0.00-0.90) K/UL Eos # (Auto) 0.00 (0.00-0.50) K/uL Baso # (Auto) 0.00 (0.00-0.30) K/uL Abs Immat Gran (auto) 0.10 (0.00-0.30) K/uL Imm/Tot Granulo (auto) 0.3 % INR 0.94 (0.91-1.10) D-Dimer Quant (PE/DVT) 1.72 H (0.00-0.50) ug/ml Sodium Cancelled 154 H Potassium Cancelled 5.5 H Chloride Cancelled Carbon Dioxide Anion Gap BUN Creatinine Estimated Creat Clear Estimated GFR Glucose Lactate (0.5-1.9) mmol/L Calcium Total Bilirubin (0.1-1.5) mg/dL Direct Bilirubin (0.0-0.5) mg/dL AST (12-35) U/L ALT (4-35) U/L Alkaline Phosphatase (40-150) U/L C-Reactive Protein Total Protein (6.0-8.3) g/dL Albumin (3.3-5.0) g/dL Amylase Lipase (23-300) U/L Procalcitonin (<0.50) ng/mL HCG, Qual (Negative) Urine Color (Yellow) Urine Appearance (Clear) Urine pH (5.0-8.5) Ur Specific [place] (1.000-1.030) Urine Protein (Negative) Urine Glucose (UA) (Negative) Urine Ketones (Negative) Urine Blood (Negative) Urine Nitrite (Negative) Urine Bilirubin (Negative) Urine Urobilinogen (0.2-1.0) Ur Leukocyte Esterase (Negative) Urine RBC (0-2) Urine WBC (0-5) Ur Squamous Epith Cells (None-Few) Urine Bacteria (None) Salicylates (1.0-10) mg/dL Urine Opiates Screen (Negative) Ur Oxycodone Screen (Negative) Urine Methadone Screen (Negative) Ur Barbiturates Screen (Negative) U Tricyclic Antidepress (Negative) Ur Phencyclidine Scrn (Negative) Ur Amphetamines Screen (Negative) U Methamphetamines Scrn (Negative) U Benzodiazepines Scrn (Negative) Urine Cocaine Screen (Negative) U Marijuana (THC) Screen (Negative) Ur Drug Screen Comment Ethyl Alcohol (0.01-0.03) % 11/20/23 11/20/23 11/20/23 Range/Units 09:47 09:47 09:47 WBC (4.50-11.00) K/uL RBC (4.00-5.20) m/uL Hgb (12.0-16.0) gm/dL Hct (33.0-51.0) % MCV (80-100) fL MCH (26-34) pg MCHC (32-36) gm/dL RDW Coeff of Tracee (11.5-15.5) % Plt Count (140-440) K/uL Neut % (Auto) (42.0-72.0) % Lymph % (Auto) (20-44) % [place] % (Auto) (0.0-11.0) % Eos % (Auto) (0.0-7.0) % Baso % (Auto) (0.0-3.0) % Neut # (Auto) (1.7-7.0) K/uL Lymph # (Auto) (0.90-2.90) K/uL [place] # (Auto) (0.00-0.90) K/UL Eos # (Auto) (0.00-0.50) K/uL Baso # (Auto) (0.00-0.30) K/uL Abs Immat Gran (auto) (0.00-0.30) K/uL Imm/Tot Granulo (auto) % INR (0.91-1.10) D-Dimer Quant (PE/DVT) (0.00-0.50) ug/ml Sodium Potassium Chloride 110 Carbon Dioxide Cancelled 12 L Anion Gap Cancelled 32 H BUN Cancelled Creatinine Estimated Creat Clear Estimated GFR Glucose Lactate (0.5-1.9) mmol/L Calcium Total Bilirubin (0.1-1.5) mg/dL Direct Bilirubin (0.0-0.5) mg/dL AST (12-35) U/L ALT (4-35) U/L Alkaline Phosphatase (40-150) U/L C-Reactive Protein Total Protein (6.0-8.3) g/dL Albumin (3.3-5.0) g/dL Amylase Lipase (23-300) U/L Procalcitonin (<0.50) ng/mL HCG, Qual (Negative) Urine Color (Yellow) Urine Appearance (Clear) Urine pH (5.0-8.5) Ur Specific [place] (1.000-1.030) Urine Protein (Negative) Urine Glucose (UA) (Negative) Urine Ketones (Negative) Urine Blood (Negative) Urine Nitrite (Negative) Urine Bilirubin (Negative) Urine Urobilinogen (0.2-1.0) Ur Leukocyte Esterase (Negative) Urine RBC (0-2) Urine WBC (0-5) Ur Squamous Epith Cells (None-Few) Urine Bacteria (None) Salicylates (1.0-10) mg/dL Urine Opiates Screen (Negative) Ur Oxycodone Screen (Negative) Urine Methadone Screen (Negative) Ur Barbiturates Screen (Negative) U Tricyclic Antidepress (Negative) Ur Phencyclidine Scrn (Negative) Ur Amphetamines Screen (Negative) U Methamphetamines Scrn (Negative) U Benzodiazepines Scrn (Negative) Urine Cocaine Screen (Negative) U Marijuana (THC) Screen (Negative) Ur Drug Screen Comment Ethyl Alcohol (0.01-0.03) % 11/20/23 11/20/23 11/20/23 Range/Units 09:47 09:47 09:47 WBC (4.50-11.00) K/uL RBC (4.00-5.20) m/uL Hgb (12.0-16.0) gm/dL Hct (33.0-51.0) % MCV (80-100) fL MCH (26-34) pg MCHC (32-36) gm/dL RDW Coeff of Tracee (11.5-15.5) % Plt Count (140-440) K/uL Neut % (Auto) (42.0-72.0) % Lymph % (Auto) (20-44) % [place] % (Auto) (0.0-11.0) % Eos % (Auto) (0.0-7.0) % Baso % (Auto) (0.0-3.0) % Neut # (Auto) (1.7-7.0) K/uL Lymph # (Auto) (0.90-2.90) K/uL [place] # (Auto) (0.00-0.90) K/UL Eos # (Auto) (0.00-0.50) K/uL Baso # (Auto) (0.00-0.30) K/uL Abs Immat Gran (auto) (0.00-0.30) K/uL Imm/Tot Granulo (auto) % INR (0.91-1.10) D-Dimer Quant (PE/DVT) (0.00-0.50) ug/ml Sodium Potassium Chloride Carbon Dioxide Anion Gap BUN 12 Creatinine Cancelled 0.8 Estimated Creat Clear Cancelled 74.38 Estimated GFR Cancelled Glucose Lactate (0.5-1.9) mmol/L Calcium Total Bilirubin (0.1-1.5) mg/dL Direct Bilirubin (0.0-0.5) mg/dL AST (12-35) U/L ALT (4-35) U/L Alkaline Phosphatase (40-150) U/L C-Reactive Protein Total Protein (6.0-8.3) g/dL Albumin (3.3-5.0) g/dL Amylase Lipase (23-300) U/L Procalcitonin (<0.50) ng/mL HCG, Qual (Negative) Urine Color (Yellow) Urine Appearance (Clear) Urine pH (5.0-8.5) Ur Specific [place] (1.000-1.030) Urine Protein (Negative) Urine Glucose (UA) (Negative) Urine Ketones (Negative) Urine Blood (Negative) Urine Nitrite (Negative) Urine Bilirubin (Negative) Urine Urobilinogen (0.2-1.0) Ur Leukocyte Esterase (Negative) Urine RBC (0-2) Urine WBC (0-5) Ur Squamous Epith Cells (None-Few) Urine Bacteria (None) Salicylates (1.0-10) mg/dL Urine Opiates Screen (Negative) Ur Oxycodone Screen (Negative) Urine Methadone Screen (Negative) Ur Barbiturates Screen (Negative) U Tricyclic Antidepress (Negative) Ur Phencyclidine Scrn (Negative) Ur Amphetamines Screen (Negative) U Methamphetamines Scrn (Negative) U Benzodiazepines Scrn (Negative) Urine Cocaine Screen (Negative) U Marijuana (THC) Screen (Negative) Ur Drug Screen Comment Ethyl Alcohol (0.01-0.03) % 11/20/23 11/20/23 11/20/23 Range/Units 09:47 09:47 09:47 WBC (4.50-11.00) K/uL RBC (4.00-5.20) m/uL Hgb (12.0-16.0) gm/dL Hct (33.0-51.0) % MCV (80-100) fL MCH (26-34) pg MCHC (32-36) gm/dL RDW Coeff of Tracee (11.5-15.5) % Plt Count (140-440) K/uL Neut % (Auto) (42.0-72.0) % Lymph % (Auto) (20-44) % [place] % (Auto) (0.0-11.0) % Eos % (Auto) (0.0-7.0) % Baso % (Auto) (0.0-3.0) % Neut # (Auto) (1.7-7.0) K/uL Lymph # (Auto) (0.90-2.90) K/uL [place] # (Auto) (0.00-0.90) K/UL Eos # (Auto) (0.00-0.50) K/uL Baso # (Auto) (0.00-0.30) K/uL Abs Immat Gran (auto) (0.00-0.30) K/uL Imm/Tot Granulo (auto) % INR (0.91-1.10) D-Dimer Quant (PE/DVT) (0.00-0.50) ug/ml Sodium Potassium Chloride Carbon Dioxide Anion Gap BUN Creatinine Estimated Creat Clear Estimated GFR 87 Glucose Cancelled 203 H Lactate 22.0 H* (0.5-1.9) mmol/L Calcium Cancelled 11.5 H Total Bilirubin 0.8 (0.1-1.5) mg/dL Direct Bilirubin 0.5 (0.0-0.5) mg/dL AST 36 H (12-35) U/L ALT 46 H (4-35) U/L Alkaline Phosphatase 122 (40-150) U/L C-Reactive Protein Cancelled Total Protein (6.0-8.3) g/dL Albumin (3.3-5.0) g/dL Amylase Lipase (23-300) U/L Procalcitonin (<0.50) ng/mL HCG, Qual (Negative) Urine Color (Yellow) Urine Appearance (Clear) Urine pH (5.0-8.5) Ur Specific [place] (1.000-1.030) Urine Protein (Negative) Urine Glucose (UA) (Negative) Urine Ketones (Negative) Urine Blood (Negative) Urine Nitrite (Negative) Urine Bilirubin (Negative) Urine Urobilinogen (0.2-1.0) Ur Leukocyte Esterase (Negative) Urine RBC (0-2) Urine WBC (0-5) Ur Squamous Epith Cells (None-Few) Urine Bacteria (None) Salicylates (1.0-10) mg/dL Urine Opiates Screen (Negative) Ur Oxycodone Screen (Negative) Urine Methadone Screen (Negative) Ur Barbiturates Screen (Negative) U Tricyclic Antidepress (Negative) Ur Phencyclidine Scrn (Negative) Ur Amphetamines Screen (Negative) U Methamphetamines Scrn (Negative) U Benzodiazepines Scrn (Negative) Urine Cocaine Screen (Negative) U Marijuana (THC) Screen (Negative) Ur Drug Screen Comment Ethyl Alcohol (0.01-0.03) % 11/20/23 11/20/23 11/20/23 Range/Units 09:47 09:47 10:50 WBC (4.50-11.00) K/uL RBC (4.00-5.20) m/uL Hgb (12.0-16.0) gm/dL Hct (33.0-51.0) % MCV (80-100) fL MCH (26-34) pg MCHC (32-36) gm/dL RDW Coeff of Tracee (11.5-15.5) % Plt Count (140-440) K/uL Neut % (Auto) (42.0-72.0) % Lymph % (Auto) (20-44) % [place] % (Auto) (0.0-11.0) % Eos % (Auto) (0.0-7.0) % Baso % (Auto) (0.0-3.0) % Neut # (Auto) (1.7-7.0) K/uL Lymph # (Auto) (0.90-2.90) K/uL [place] # (Auto) (0.00-0.90) K/UL Eos # (Auto) (0.00-0.50) K/uL Baso # (Auto) (0.00-0.30) K/uL Abs Immat Gran (auto) (0.00-0.30) K/uL Imm/Tot Granulo (auto) % INR (0.91-1.10) D-Dimer Quant (PE/DVT) (0.00-0.50) ug/ml Sodium Potassium Chloride Carbon Dioxide Anion Gap BUN Creatinine Estimated Creat Clear Estimated GFR Glucose Lactate (0.5-1.9) mmol/L Calcium Total Bilirubin (0.1-1.5) mg/dL Direct Bilirubin (0.0-0.5) mg/dL AST (12-35) U/L ALT (4-35) U/L Alkaline Phosphatase (40-150) U/L C-Reactive Protein 0.6 Total Protein 9.3 H (6.0-8.3) g/dL Albumin 5.7 H (3.3-5.0) g/dL Amylase Cancelled 75 Lipase 57 (23-300) U/L Procalcitonin 0.04 (<0.50) ng/mL HCG, Qual Negative (Negative) Urine Color Yellow (Yellow) Urine Appearance Clear (Clear) Urine pH 5.5 (5.0-8.5) Ur Specific [place] 1.015 (1.000-1.030) Urine Protein 2+ A (Negative) Urine Glucose (UA) 1+ A (Negative) Urine Ketones Negative (Negative) Urine Blood 3+ A (Negative) Urine Nitrite Negative (Negative) Urine Bilirubin Negative (Negative) Urine Urobilinogen 0.2 (0.2-1.0) Ur Leukocyte Esterase Negative (Negative) Urine RBC 2-5 A (0-2) Urine WBC 0-2 (0-5) Ur Squamous Epith Cells Few (None-Few) Urine Bacteria None (None) Salicylates < 1.0 L (1.0-10) mg/dL Urine Opiates Screen Negative (Negative) Ur Oxycodone Screen Negative (Negative) Urine Methadone Screen Negative (Negative) Ur Barbiturates Screen Negative (Negative) U Tricyclic Antidepress Negative (Negative) Ur Phencyclidine Scrn Negative (Negative) Ur Amphetamines Screen Negative (Negative) U Methamphetamines Scrn Negative (Negative) U Benzodiazepines Scrn Negative (Negative) Urine Cocaine Screen Negative (Negative) U Marijuana (THC) Screen POSITIVE A (Negative) Ur Drug Screen Comment See Note Ethyl Alcohol < 0.01 L (0.01-0.03) % Discharge Plan Discharge Clinical Impression: Grand mal status epilepticus, Sepsis Patient Disposition: er [facility] Condition: Critical Additional Instructions: Transfer to the ICU, at [facility] by air, condition guarded/critical Prescriptions: No Action losartan 50 mg tablet 50 mg PO DAILY Patient Comments: TAKE ONE TABLET BY MOUTH EVERY DAY venlafaxine 150 mg capsule,extended release 24hr 225 mg PO DAILY Patient Comments: TAKE ONE CAPSULE BY MOUTH EVERY DAY ALONG WITH 75MG CAPSULE WITH THE EVENING MEAL. omeprazole 40 mg capsule,delayed release(DR/EC) 40 mg PO DAILY Patient Comments: TAKE ONE CAPSULE BY MOUTH EVERY DAY BEFORE A MEAL cephalexin 500 mg capsule 500 mg PO TID 7 Days Qty: 21 0RF famotidine 40 mg tablet 40 mg PO QHS Patient Comments: TAKE ONE TABLET BY MOUTH EVERY DAY metoclopramide HCl [Reglan] 10 mg tablet 10 mg PO Q6H PRN (Reason: nausea and vomiting) Qty: 10 0RF potassium chloride 20 mEq tablet extended release 20 meq PO DAILY Qty: 10 2RF atorvastatin 40 mg tablet 40 mg PO QPM triamcinolone acetonide 0.1 % ointment topical 3XD gabapentin 300 mg capsule 300 mg PO QPM gabapentin 100 mg capsule 300 mg PO QPM Follow Up/Referrals: Shawna Dominguez MD [Primary Care Provider] - Stand Alone Forms: [employer] Info Instructions Critical Care Time Critical Care Time Critical Care Time: Yes Attestation: The patient required my highest level preparedness to intervene emergently and I personally spent this critical care time directly and personally managing the patient. This critical care time included: Obtaining a history; Examining the patient; Pulse oximetry; Ordering and reviewing of studies; Arranging urgent treatment with development of a management plan; Evaluation of patients response to treatment; Frequent reassessment discussions with other providers. This critical care time was performed to assess and manage the high probability of imminent life-threatening deterioration that could result in multiorgan failure. It was exclusive of separate billable procedures and treating other patients and teaching time. Total Critical Care Time in Minutes: 90
--- OUTSIDE RECORDS SUMMARY | 2023-11-20 09:35 | XMS_ITS | Clinical Summary ---
Author Organization [facility] Address [place], [place] [address] Care Team Providers Care Photovoltaic Fabrication Technician Name Role Phone Shawna Dominguez MD Primary Care Provider Allergies Active Allergy Reactions Criticality Noted Date Comments Hymenoptera Allergenic Extract Anaphylaxis High Morphine Headache 01/01/2018 Pt reported migraine Penicillins Hives Ondansetron Headache 07/06/2022 Medications Medication Sig Dispensed Refills Start Date End Date Status ascorbic acid, vitamin C, (VITAMIN C) 500 mg tablet Take 1 tablet by mouth once daily. 0 8 Active Cholecalciferol, Vitamin D3, (VITAMIN D-3) 2,000 unit tablet Take 1 tablet by mouth once daily. 0 8 Active cyclobenzaprine (FLEXERIL) 10 mg tabletIndications:M uscle spasm,Lumbar back pain Take 1 tablet by mouth 2 times daily if needed for Muscle Spasm. 30 tablet 0 Active loperamide (IMODIUM) 2 mg capsuleIndications: Vomiting and diarrhea Take 4mg by mouth with 1st loose stool, then 2mg with each subsequent loose stool. Max 16 mg in 24 hrs 10 Capsule 2 Active metoclopramide HCl (REGLAN) 10 mg tabletIndications:V omiting and diarrhea Take 1 Tablet (10 mg) by mouth every 6 hours if needed for Nausea/Vomiting. 10 Tablet 2 Active EPINEPHrine (EpiPen) 0.3 mg/0.3 mL auto-injectorIndica tions:Bee sting allergy Inject 0.3 mg intramuscular one time if needed for Allergic Reaction. 2 Each 2 Active losartan (COZAAR) 50 mg tabletIndications:E ssential hypertension Take 1 Tablet (50 mg) by mouth once daily. 90 Tablet 3 3 Active omeprazole (PRILOSEC) 40 mg Delayed-Release capsuleIndications: Gastroesophageal reflux disease with esophagitis without hemorrhage,Hiatal hernia Take 1 Capsule (40 mg) by mouth once daily before a meal. 90 Capsule 3 3 Active atorvastatin (LIPITOR) 40 mg tabletIndications:M ixed hyperlipidemia Take 1 Tablet (40 mg) by mouth at bedtime. 90 Tablet 3 3 Active albuterol HFA (PRO-AIR; VENTOLIN; PROVENTIL) 90 mcg/actuation inhalerIndications: Mild intermittent asthma without complication Inhale 2 Puffs by mouth every 4 hours if needed for Shortness of Breath 1st choice or Wheezing 2nd choice. 36 g 1 3 Active venlafaxine (EFFEXOR XR) 150 mg Extended-Release capsuleIndications: Anxiety Take 1 Capsule (150 mg) by mouth once daily with evening meal. 90 Capsule 3 3 Active gabapentin (NEURONTIN) 100 mg capsuleIndications: Chronic pain of left knee 3 CAPSULES BY MOUTH AT NIGHT 270 Capsule 3 3 Active gabapentin (NEURONTIN) 300 mg capsuleIndications: Hot flashes Take 1 Capsule (300 mg) by mouth at bedtime. 90 Capsule 1 4 Active triamcinolone 0.1 % ointmentIndications :Skin eruption Apply topically to affected area(s) three times daily. 80 g 4 Active ORDER - MEDICATION ORDER COMPOSERIndications :Elevated blood pressure reading without diagnosis of hypertension Blood pressure monitor for home use for elevated BP 1 Kit 0 2 11/08/19 24 Discontinu ed(*Med complete/R egimen complete/L evel of care change) varenicline (CHANTIX DOSEPAK) 0.5 mg (11)- 1 mg (42) tabletIndications:E ncounter for smoking cessation counseling Days 1-3 take 0.5mg once daily; Days 4-7 take 0.5mg twice daily; then increase to 1mg twice daily. Take with meals. 1 Packet 3 11/08/19 24 Discontinu ed(*Med complete/R egimen complete/L evel of care change) varenicline (CHANTIX) 1 mg tabletIndications:E ncounter for smoking cessation counseling Take 1 mg by mouth two times daily with meals. 112 Tablet 3 11/08/19 24 Discontinu ed(*Med complete/R egimen complete/L evel of care change) polyethylene glycol-electrolyte (GOLYTELY) 236-22.74-6.74 -5.86 gram suspensionIndicatio ns:Colon cancer screening Drink 2 liters (1/2 of prep) the day before colonoscopy and drink 2 liters (other 1/2 of prep) 6 hours before colonoscopy appointment. 4000 mL 3 11/08/19 24 Discontinu ed(*Med complete/R egimen complete/L evel of care change) tiZANidine (ZANAFLEX) 4 mg tabletIndications:A cute right-sided low back pain without sciatica Take 1 Tablet (4 mg) by mouth every 8 hours if needed for Muscle Spasm. 15 Tablet 4 11/08/19 24 Discontinu ed(*Patien t states no longer taking) methylPREDNISolone (Medrol, Raul,) 4 mg tabletIndications:A cute right-sided low back pain without sciatica Take by mouth as instructed per packaging. 21 Tablet 4 11/08/19 24 Discontinu ed(*Med complete/R egimen complete/L evel of care change) Active Problems Problem Noted Date Diagnosed Date Colon polyp 04/20/2023 Overview (04/20/2023): Colonoscopy 04/2023 large TA, repeat in 3 years Prediabetes 01/06/2023 Pap smear for cervical cancer screening 03/11/19 23 Overview (03/11/2022): 1995: [place] 02/02/2022: NIL/HPV neg Plan: Pap and HPV due in 5 years. SHERITA (generalized anxiety disorder) 07/19/2021 Tobacco use disorder 06/24/2020 Sigmoid diverticulosis 12/26/2017 Overview (12/26/2017): Noted on colonoscopy on 12/13/2017 Routine adult health maintenance 12/15/2017 Overview (12/15/2017): Colonoscopy 12/2017 hyperplastic polyp, repeat in 10 years Adjustment disorder with depressed mood 06/28/19 18 Elevated serum hCG 06/24/2017 Irritable bowel syndrome wit h both constipation and diarrhea 06/22/2017 Bee sting allergy 06/22/2017 Pain medication agreement 04/10/2014 Nonintractable migraine, unspecified migraine ty pe 03/06/2014 Lumbar facet arthropathy 05/22/2013 Hiatal hernia 06/06/2012 Essential hypertension 03/28/2008 Gastroesophageal reflux disease with esophagitis 03/28/2008 Overview (11/17/2017): EGD 04/2010 eosinophil esophagitis, gastroesophogeal reflux disease EGD 11/2017 reflux, hiatal hernia, bile, try questran Degeneration of lumbar or lumbosacral interverte bral disc 03/24/2008 Impaired fasting glucose 10/24/2007 Pure hypercholesterolemia 10/24/2007 Morbid obesity with BMI of 40.0-44.9, adult L5-S1 disk bulge with DDD Mild intermittent asthma without complication Resolved Problems Problem Noted Date Diagnosed Date Resolved Date Dyslipidemia 10/01/2015 10/01/2015 Overview (10/01/2015): Low HDL Nonintractable migraine 12/04/201406/04 Ingrowing nail 07/31/2008 03/31/2014 Migraine 12/04/2014 Encounters Date Type Department Care Team Description 11/08/2023 9:35 AM CDT Office Visit [facility] [address] [place] [address] Shawna Dominguez MD Derm Problem (Spots on left arm and left lower abdominal area, 8-9 months) 11/07/2023 Travel from Last 3 Months Immunizations Name [...] lymph n odes Heart Disease Maternal Grandmother VA Cancer Mother b 194 [place] insid e cheek Hyperlipidemia Mother Hypertension Mother Cancer-prostate Paternal Grandfather Cancer Paternal Grandmother lung, k [place], female organs Heart Disease Paternal Grandmother VA Cancer-breast No Family History Relation Name Status Comments Child Father Maternal Grandfather Maternal Grandmother Mother Paternal Grandfather Paternal Grandmother Social History Tobacco Use Types Packs/Day Years Used Date Smoking Tobacco: Former Cigarettes 0.5 36 1 - 12/05/2015 Smokeless Tobacco: Never Tobacco Cessation:Counseling Given: Not Answered Comments:has chantix at home. will be starting wellbutrin Alcohol Use Standard Drinks/Week Comments Yes 0 (1 standard drink = 0.6 oz pur e alcohol) occasional glass of wine PHQ-2 Answer Date Recorded PHQ-2 TOTAL SCORE 5 01/05/2023 Social Connections Answer Date Recorded Frequency of Communication with Friends and Fami ly 0 11/07/2023 Financial Resource Strain Answer Date R ecorded Difficulty of Paying Living Expenses 3 11/07/2023 Difficulty of Paying Living Expenses Not on file 11/07/2023 Food Insecurity Answer Date Recorded Worried About Running Out of Food in the Last Ye ar 1 11/07/2023 Transportation Needs Answer Date Record ed Lack of Transportation (Medical) 1 11/07/2023 Housing Stability Answer Date Recorded Unable to Pay for Housing in the Last Year 1 11/07/2023 Sex and Gender Information Value Date Recorded Sex Assigned at Not on file Gender Identity Not on file Sexual Orientation Not on file Obstetrics History Para Term AB IAB SAB Ectopic Multiple Livin g Live Births 3 3 3 0 0 0 0 0 3 Date Outcome GA Total Labor Labor/2nd/3rd Weight Sex Type Anes PTL Aubrie A1 A5 Name Clin Term Term Term Comments x3 Last Filed Vital Signs Vital Sign Reading Time Taken Comments Blood Pressure 153/81 11/08/2023 9:35 AM CDT Pulse 82 11/08/2023 9:35 AM CDT Temperature 36.8 ??C (98.3 ??F) 05/24/2022 8:20 AM CD T Respiratory Rate 18 06/02/2022 1:33 PM CDT Oxygen Saturation 98% 11/08/2023 9:35 AM CDT Inhaled Oxygen Concentration - - Weight 100.5 kg (221 lb 9.6 oz) 11/08/2023 9:35 AM CDT Height 167.5 cm (5' 5.95) 04/04/2023 4:12 PM CS T Body Mass Index 35.83 04/04/2023 4:12 PM CINDER WORKER Plan of Treatment Health Maintenance Due Date Last Done Comments HIV for age 15-65 11/07/1983 Hepatitis C screening for age 18-79 1986 Mammogram for age 45-75 09/30/2016 10/01/19 16, 05/13/2011, 05/13/2011, Additional history exists Zoster (shingles) series for age 50+ (1 of 2) 2018 COVID-19 vaccine series ( season) 2023 Influenza for age 50-64 11/05/2023 12/24/19 10, 12/19/2007, 12/12/2005, Additional history exists Depression screening for age 12+ 01/07/2024 01/06/2023, 01/05/2023, 01/05/2023, Additional history exists BMI (ht and wt on same day) for age 18+ 04/04/2024 04/04/2023, 01/05/2023, 06/22/2020, Additional history exists Colonoscopy through age 75 04/17/202604/17, 04/17/2023, 04/17/2023, Additional history exists Pap test for age 21-65 02/02/2027 , 02/02/2022, 10/01/2015, Additional history exists Lipids for age 45-75 11/07/2028 11/08/2023, 01/05/2023, 02/02/2022, Additional history exists Tetanus booster 02/09/2033 02/09/2023, 04/0 05/2012, 06/06/2012, Additional history exists Tdap Completed 02/09/2023, 06/06/2012 Pneumococcal series for age 6-64 Aged Out No longer eligible based on patient's age to complete this topic Procedures Procedure Name Priority Date/Time Associated Diagnosis Comments [facility] MISCELLANEOUS SENDOUT Routine 11/08/2023 10:34 AM CDT Chronic diarrhea COMP METABOLIC PANEL Routine 11/08/2023 10:34 AM CDT Pure hypercholesterolemia LIPID PANEL W REFLEX MEASURED LDL Routine 11/08/2023 10:34 AM CDT Pure hypercholesterolemia MISCELLANEOUS SEND OUT Routine 11/08/2023 10:34 AM CDT Chronic diarrhea LEEANNE PREP,SKIN,HAIR,NAIL Routine 11/08/2023 9:57 AM CDT Skin eruption COLONOSCOPY DIAGNOSTIC Routine 04/17/2023 12:00 AM CINDER WORKER Hematochezia HPV HIGH RISK Routine 02/02/2022 1:51 PM CINDER WORKER Cervical cancer screening XR MAMMO BILAT SCREEN FFDM (IA) Routine 10/01/2015 3:30 PM CDT Visit for screening mammogram from Last 3 Months or Most Recently Relevant to Health Maintenance Results * [facility] MISCELLANEOUS SENDOUT (11/08/2023 10:34 AM CDT) [facility] MISCELLANEOUS SEND OUT COMMENT 11/15/2023 5:08 PM CDT [facility] Comment: Test Ordered: [id number] Porphobilinogen, Qn, Random Ur Test(s) 213746-[id number], Qn, Random Ur was developed and its performance characteristics determined by [facility]. It has not been cleared or approved by the Food and Drug Administration. Porphobilinogen, Qn, Random Ur 0.5 ?mg/L ? 01 ? Reference Range: 0.0-2.0 ? Other (Other) Non-Blood / Unknown 11/08/2023 10:34 AM CDT 11/08/2023 10:35 AM CDT Narrative [facility] ([facility]) - 11/15/2023 5:08 PM CDT Performed At: 01 [facility] [address] [place], [place] [id number] Bryan Yepez MD Ph:[phone] Performed At: [address] [id number] Ashli Kruse MD Ph:[phone] Shawna Dominguez MD LABORATORY [facility] ([facility]) [address] [place] [id number], * (ABNORMAL) LIPID PANEL W REFLEX MEASURED LDL (11/08/2023 10:34 AM CDT) CHOLESTEROL,TOTAL 179 100 - 199 mg/dL 11/08/2023 4:37 PM CDT [facility] Comment: Cholesterol, Total Reference Ranges Desirable <200 mg/dL Borderline 200-239 mg/dL High >=240 mg/dL TRIGLYCERIDES 157(H) <150 mg/dL 11/08/2023 4:37 PM CDT [facility] HDL CHOLESTEROL 46 >40 mg/dL 4:37 PM CDT [facility] NON-HDL CHOLESTEROL 133 <145 mg/dl 11/08/2023 4:37 PM CDT [facility] CHOL/HDL RATIO 3.89 <4.50 11/08/2023 4:37 PM CDT [facility] LDL CHOLESTEROL 102 <=130 mg/dL 11/08/2023 4:37 PM CDT [facility] VLDL CHOLESTEROL 31(H) <=30 mg/dL 11/08/2023 4:37 PM CDT [facility] PROVIDER ORDERED STATUS RANDOM 11/08/2023 4:37 PM CDT [facility] Blood BLOOD SPECIMEN / Unknown Venipuncture / Unknown 11/08/2023 10:34 AM CDT 11/08/2023 10:35 AM CDT Shawna Dominguez MD CHEMISTRY Performing Organization Address [facility]/ZIP Co de Phone Number [facility] [address] [place] [address], * MISCELLANEOUS SEND OUT (11/08/2023 10:34 AM CDT) TEST NAME Porphobilinogen, quantitative, random urine 11/09/2023 11:21 AM CDT [facility] SOURCE urine 11/09/2023 11:21 AM CDT [facility] PERFORMING LAB [facility] 11/09/2023 11:21 AM CDT [facility] REFERRAL LAB TEST # [id number] 11/09/2023 11:21 AM CDT [facility] IS THIS A [facility] TEST? Yes, See [facility] Miscellaneous Sendout result 11/09/2023 11:21 AM CDT [facility] Other (Other) Non-Blood / Unknown 11/08/2023 10:34 AM CDT 11/08/2023 10:35 AM CDT Shawna Dominguez MD SEND OUTS Performing Organization Address [facility]/ZIP Co de Phone Number [facility] [address] [place] [address], [place] * (ABNORMAL) COMP METABOLIC PANEL (11/08/2023 10:34 AM CDT) SODIUM 141 136 - 145 mmol/L 11/08/2023 4:37 PM CDT [facility] POTASSIUM 4.7 3.5 - 5.1 mmol/L 11/08/2023 4:37 PM CDT [facility] CHLORIDE 103 98 - 107 mmol/L 11/08/2023 4:37 PM CDT [facility] CO2,TOTAL 28 22 - 29 mmol/L 11/08/2023 4:37 PM [facility] ANION GAP 10 5 - 18 11/08/2023 4:37 PM [facility] GLUCOSE 107(H) 70 - 99 mg/dL 11/08/2023 4:37 PM [facility] CALCIUM 9.3 8.6 - 10.0 mg/dL 11/08/2023 4:37 PM [facility] BUN 10 6 - 20 mg/dL 11/08/2023 4:37 PM [facility] CREATININE 0.72 0.50 - 0.90 mg/dL 11/08/2023 4:37 PM [facility] BUN/CREAT RATIO 14 10 - 20 4:37 PM [facility] eGFR >90 >90 mL/min/1.7 3m2 11/08/2023 4:37 PM [facility] Comment:As of 2021, eG FR is calculated by the CKD-EPI creatinine equation without race adjustment. ??eGFR can be influenced by muscle mass, exercise, and diet. ??The reported eGFR is an estimation only and is only applicable if the renal function is stable. ALBUMIN 4.2 4.0 - 4.9 g/dL 11/08/2023 4:37 PM [facility] PROTEIN,TOTAL 6.8 6.0 - 8.0 g/dL 11/08/2023 4:37 PM [facility] BILIRUBIN,TOTAL 0.2 0.0 - 1.2 mg/dL 11/08/2023 4:37 PM [facility] ALK PHOSPHATASE 109(H) 35 - 104 IU/L 11/08/2023 4:37 PM [facility] ALT (SGPT) 29 10 - 35 IU/L 11/08/2023 4:37 PM [facility] AST (SGOT) 35 10 - 35 IU/L 11/08/2023 4:37 PM CDT [facility] Blood BLOOD SPECIMEN / Unknown Venipuncture / Unknown 11/08/2023 10:34 AM CDT 11/08/2023 10:35 AM CDT Shawna Dominguez MD CHEMISTRY [facility] [address] [place] [address], * LEEANNE PREP,SKIN,HAIR,NAIL (11/08/2023 9:57 AM CDT) OBSERVATION No fungal elements seen 11/08/2023 10:11 AM CDT [facility] Other SPECIMEN FROM SKIN OBTAINED BY SCRAPING / Unknown Non-Blood / Unknown 11/08/2023 9:57 AM CDT 11/08/2023 9:59 AM CDT Shawna Dominguez MD MICROBIOLOGY [facility] [address] [place] [address], * COLONOSCOPY DIAGNOSTIC (04/17/2023 12:00 AM CINDER WORKER) Shawna Dominguez MD GI PROCEDURE ORD * HPV HIGH RISK (02/02/2022 1:51 PM CINDER WORKER) TYPE 16 Negative Negative 02/07/2022 11:11 AM CINDER WORKER [facility] TYPE 18 Negative Negative 02/07/2022 11:11 AM CINDER WORKER [facility] OTHER HIGH RISK TYPES Negative Negative 02/07/2022 11:11 AM CINDER WORKER [facility] Other (Cervical/Vagina l) Non-Blood / Unknown 02/02/2022 1:51 PM CINDER WORKER 02/03/2022 2:53 PM CINDER WORKER Narrative [facility] - 02/07/2022 11:11 AM CINDER WORKER HPV types 16, 18, 31, 33, 35, 39, 45, 51, 52, 56, 58, 59, 66 and 68 DNA were undetectable or below the pre-set threshold. Methodology: Rosaline Bhavin 4800 HPV Test Bony Little MD MICROBIOLOGY [facility] [address] [place] [address], [place] * XR MAMMO BILAT SCREEN FFDM (10/01/2015 3:30 PM CDT) Anatomical Region Laterality Modality BREASTS, Breast Left, Breast Right Bilateral Mammography Impressions 10/02/2015 12:34 PM CDT ??There is no radiographic evidence for malignancy. ??Recommend annual mammograms. A lay language report of this examination will be provided to the patient. MAMMOGRAM ASSESSMENT: ??ACR 2 Benign Narrative 10/02/2015 12:34 PM CDT XR MAMMO BILAT SCREEN FFDM [G0202.0] CLINICAL HISTORY: ??This is an asymptomatic 44 y.o. patient. INDICATION FOR EXAM: Mammogram Screening. TECHNIQUE: CC & MLO views were obtained. ??This digital study was evaluated with the assistance of Computer-Aided Detection. COMPARISON FILMS: Yes 05/13/11 [facility] 12/23/09 [facility] FINDINGS: ??Mammographically, the breast tissue has scattered fibroglandular densities. ??No suspicious masses or microcalcifications. ?? Benign appearing calcifications within left breast and Benign appearing asymmetry within left breast. Bony Little MD MAMMO from Last 3 Months or Most Recently Relevant to Health Maintenance Advance Directives * Full Code (Latest Code Status on File) Date Activated Date Inactivated Comments 04/01/2014 4:00 PM 04/02/2014 1:31 PM * Full Code Date Activated Date Inactivated Comments 04/01/2014 8:40 AM 04/01/2014 4:00 PM Care Teams Photovoltaic Fabrication Technician Relationship Specialty Start Date End Date Shawna Dominguez MD [address] [place] [address] PCP - General Family Practice 07/06/22
--- OUTSIDE RECORDS SUMMARY | 2023-11-20 09:35 | XMS_ITS | Referral Summary ---
Author Organization [facility] Address [address] [place] [id number] Care Team Providers Care Superior Court Justice Name Role Phone No Ref-Primary, Physician Primary [...] of Treatment Not on file Care Teams Superior [facility] Justice Relationship Specialty Start Date End Date No Ref-Primary, Physician PCP - General 04/05/22
--- OUTSIDE RECORDS SUMMARY | 2023-11-20 09:35 | XMS_ITS | Clinical Summary ---
Author Organization [place] Address [address] [place] [id number] Care Team Providers Care Glueline Worker Name Role Phone No Ref-Primary, Physician Primary [...] FIT 1968 FLEX SIG 1968 GLUCOSE 1968 MAMMO SCREENING 1968 sDNA (Cologuard) 1968 COLONOSCOPY 1978 COLORECTAL CANCER SCREENING 1978 HIV SCREENING 11/07/1983 HEPATITIS C SCREENING 1986 HEPATITIS B IMMUNIZATION (1 of 3 - 19+ 3-dose series) 11/07/1987 PAP 1989 LIPID 2008 YEARLY PREVENTIVE VISIT 07/07/2022 07/07/2021 PHQ-2 (once per calendar year) 2023 COVID-19 Vaccine (1 - 2023-2 5 season) 2023 INFLUENZA VACCINE (#1) 2023 DTAP/TDAP/TD IMMUNIZATION (3 - Td or [...] age to complete this topic Care Teams Glueline Worker Relationship Specialty Start Date End Date No Ref-Primary, Physician PCP - General 04/05/22
[2023-11-20] MEDS: MIDAZOLAM HCL 1 MG/ML inj 3 MG IVP (09:45)
[2023-11-20] MEDS: SUCCINYLCHOLINE 20 MG/ML INJ 100 MG IVP (09:48)
[2023-11-20] MEDS: ETOMIDATE 2 MG/ML inj 16 MG IVP (09:48)
[2023-11-20] MEDS: LORazepam 2 MG/ML inj IV (09:55)
[2023-11-20 09:57] LABS: Basophils Percent Auto 0.1 % (0.0-3.0); Hemoglobin* 15.7 gm/dL (12.0-16.0); Immature Granulocytes Pct Auto 0.3 %; Lymphocytes Percent Auto 13.6 % (20-44); Mean Corpuscular HGB Conc 32 gm/dL (32-36); Mean Corpuscular Hemoglobin 31 pg (26-34); Mean Corpuscular Volume 97 fL (80-100); Monocytes Percent Auto 3.5 % (0.0-11.0); Neutrophils Percent Auto 82.5 % (42.0-72.0); Platelet Count* 398 K/uL (140-440); RDW Coefficient of Variation % 13.7 % (11.5-15.5); Red Blood Count 5.04 m/uL (4.00-5.20)
[2023-11-20 09:59] LABS: Slide Review Reflex No
[2023-11-20] MEDS: fentaNYL 100 MCG/2 ML inj 50 MCG IVP (09:59)
[2023-11-20] MEDS: PROPOFOL 10 MG/ML INJ 25 MG IVP (10:06)
--- NOTE | 2023-11-20 10:10 | W.ANESCHARGE ---
Anesthesia Charges Start Date/Time Anesthesia Start Date: 11/20/23 Anesthesia Start Time: 09:45 Stop Date/Time Anesthesia Stop Date: 11/20/23 Anesthesia Stop Time: 10:45 Summary Emergency: SUGAR REFINERY SUPERVISOR
--- NOTE | 2023-11-20 10:10 | PM.ANBPRC ---
[facility] Medical History Obesity ?E66.9 - Obesity, unspecified (ICD-10) Lumbar facet arthropathy ?M47.816 - Spondylosis without myelopathy or radiculopathy, lumbar region (ICD-10) Nicotine dependence ?F17.200 - Nicotine dependence, unspecified, uncomplicated (ICD-10) Migraine ?G43.909 - Migraine, unspecified, not intractable, without status migrainosus (ICD-10) Displacement of lumbar intervertebral disc ?M51.26 - Other intervertebral disc displacement, lumbar region (ICD-10) Degeneration of lumbar or lumbosacral intervertebral disc ?M51.37 - Other intervertebral disc degeneration, lumbosacral region (ICD-10) Asthma ?J45.909 - Unspecified asthma, uncomplicated (ICD-10) Hypertension ?I10 - Essential (primary) hypertension (ICD-10) Chronic GERD ?K21.9 - Gastro-esophageal reflux disease without esophagitis (ICD-10) Social History Smoking Status: Current every day smoker What tobacco products do you use: cigarettes Smoking packs per day: 1 Smoking cigarettes per day: 20.0 Do you use any of these nicotine containing products: None Second hand tobacco smoke exposure: No How often do you have a drink containing alcohol: monthly or less How often do you have six or more drinks on one occasion: Never AUDIT-C Alcohol total score: 1 Non-prescribed substance use: marijuana (any form) service: No Meds Home Medications and Allergies Home Medications ?Medication ?Instructions ?Recorded ?Confirmed ?Type losartan 50 mg tablet 50 mg PO DAILY 09/17/21 11/20/23 History omeprazole 40 mg capsule,delayed 40 mg PO DAILY 09/17/21 11/20/23 History release venlafaxine 150 mg 225 mg PO DAILY 09/17/21 11/20/23 History capsule,extended release 24 hr famotidine 40 mg tablet 40 mg PO QHS 02/10/22 11/20/23 History atorvastatin 40 mg tablet 40 mg PO QPM 11/20/23 11/20/23 History gabapentin 100 mg capsule 300 mg PO QPM 11/20/23 11/20/23 History gabapentin 300 mg capsule 300 mg PO QPM 11/20/23 11/20/23 History triamcinolone acetonide 0.1 % topical 3XD 11/20/23 History topical ointment Allergies Allergy/AdvReac Type Severity Reaction Status Date / Time bee pollen Allergy Severe Anaphylaxis Verified 11/20/23 09:13 Penicillins Allergy Intermediate Hives Verified 11/20/23 09:13 morphine AdvReac Intermediate Migraine Verified 11/20/23 09:13 ondansetron [From Zofran] AdvReac Intermediate Migraine Verified 11/20/23 09:13 Results Labs Labs: Laboratory Results - last 24 hr 11/20/23 09:47 WBC 19.00 H RBC 5.04 Hgb 15.7 Hct 49.0 MCV 97 MCH 31 MCHC 32 RDW Coeff of Tracee 13.7 Plt Count 398 Neut % (Auto) 82.5 H Lymph % (Auto) 13.6 L Dickens % (Auto) 3.5 Eos % (Auto) 0.0 Baso % (Auto) 0.1 Neut # (Auto) 15.70 H Lymph # (Auto) 2.60 Dickens # (Auto) 0.70 Eos # (Auto) 0.00 Baso # (Auto) 0.00 Abs Immat Gran (auto) 0.10 Imm/Tot Granulo (auto) 0.3 Sodium Cancelled Potassium Cancelled Chloride Cancelled Carbon Dioxide Cancelled Anion Gap Cancelled BUN Cancelled Creatinine Cancelled Estimated Creat Clear Cancelled Estimated GFR Cancelled Glucose Cancelled Lactate 22.0 H* Calcium Cancelled C-Reactive Protein Cancelled Amylase Cancelled Vital Signs Vital Signs: Last Vital Signs Temp 95.6 F L 11/20/23 09:06 Pulse 94 11/20/23 09:06 Resp 20 11/20/23 09:06 BP 165/98 H 11/20/23 09:06 Pulse Ox 99 11/20/23 09:06 O2 Del Method Room Air 11/20/23 09:06 Weight: 108.862 kg Height: 167.64 cm Anesthesia Procedures Airway Patient Location: ED Urgency: emergent Start Time: 09:45 Stop Time: 10:45 Start Date: 11/20/23 Stop Date: 11/20/23 Anesthesiologist: Ramirez Denise [place] HCM CONSULTANT: Sam Teixeira Performed by: NIC Preanesthetic Checklist: IV checked and monitors and equipment checked Difficult Airway: No Indications for Airway Management: respiratory distress and [employer] depression Spontaneous Ventilation: present Sedation Level: deep (versed, etomidate, and succinylcholine) Preoxygenated: Yes Mask Difficulty Assessment: 1 - vent by mask Final Airway Type: endotracheal airway (22 at the teeth; securement device placed (with built-in oral airway)) Number of Attempts at Approach: 1 Dentition Unchanged: Yes
[2023-11-20 10:13] LABS: Albumin* 5.7 g/dL (3.3-5.0); Chloride* 110 mmol/L (96-114)
[2023-11-20 10:14] LABS: Sodium* 154 mmol/L (135-149)
[2023-11-20 10:15] LABS: Potassium* 5.5 mmol/L (3.6-5.1)
[2023-11-20 10:16] LABS: Amylase* 75 U/L (18-89); Creatinine* 0.8 mg/dL (0.5-1.5); Est. Creatinine Clearance* 74.38; Estimated Glomerular Filt Rate 87 ml/min; HCG Qualitative Serum* Negative (Negative); INR 0.94 (0.91-1.10); Prothrombin Time 13.2 Seconds
[2023-11-20 10:17] LABS: Alanine Aminotransferase* 46 U/L (4-35); Alkaline Phosphatase* 122 U/L (40-150); Anion Gap 32 mEq/L (7-15); Aspartate Amino Transferase* 36 U/L (12-35); Bilirubin Direct* 0.5 mg/dL (0.0-0.5); Bilirubin Total* 0.8 mg/dL (0.1-1.5); Blood Urea Nitrogen* 12 mg/dL (7-30); Calcium* 11.5 mg/dL (8.4-10.6); Carbon Dioxide* 12 mmol/L (20-32); Glucose* 203 mg/dL (60-115); Lipase* 57 U/L (23-300); Total Protein* 9.3 g/dL (6.0-8.3)
[2023-11-20 10:19] LABS: D Dimer Quantitative* 1.72 ug/ml (0.00-0.50); Ethanol* < 0.01 % (0.01-0.03); Salicylate* < 1.0 mg/dL (1.0-10)
[2023-11-20 10:20] LABS: C Reactive Protein* 0.6 mg/dL (0.5-1.0)
[2023-11-20] MEDS: propofoL 1,000 MG/100 ML ML 19.6 MG IVPB (10:31)
[2023-11-20 10:34] LABS: Procalcitonin* 0.04 ng/mL (<0.50)
[2023-11-20] MEDS: cefTRIAXone 2 GM in 0.9 % SODIUM CHLORIDE 100 ml 100 ML IVPB (10:38)
[2023-11-20 11:07] LABS: Appearance Urine Clear (Clear); Bilirubin Urine Negative (Negative); Blood Urine 3+ (Negative); Color Urine Yellow (Yellow); Glucose Urine 1+ (Negative); Ketones Urine Negative (Negative); Leukocyte Esterase Urine Negative (Negative); Nitrite Urine Negative (Negative); Protein Urine 2+ (Negative); Specific Gravity Urine 1.015 (1.000-1.030); Urobilinogen Urine 0.2 (0.2-1.0); pH Urine 5.5 (5.0-8.5)
[2023-11-20 11:26] LABS: Amphetamine Screen Urine Negative (Negative); Barbiturate Screen Urine Negative (Negative); Benzodiazepines Screen Urine Negative (Negative); Cannabinoid Screen Urine POSITIVE (Negative); Cocaine Screen Urine Negative (Negative); Methadone Screen Urine Negative (Negative); Methamphetamines Screen Urine Negative (Negative); Opiate Screen Urine Negative (Negative); Oxycodone Screen Urine Negative (Negative); Phencyclidine Screen Urine Negative (Negative); Tricyclic Antidepressant Urine Negative (Negative)
[2023-11-20] MEDS: VANCOMYCIN 2 GM/400 ML 2 GM/400 ML PIGGYBACK IVPB (11:28)
[2023-11-20 11:34] LABS: Squamous Epithelial Cell Urine Few (None-Few); WBC Urine 0-2 (0-5)
[2023-11-20 12:08] LABS: PCR FLU A Negative PCR FLU A (Negative); PCR FLU B Negative PCR FLU B (Negative); PCR RSV Negative PCR RSV (Negative); SARS PCR* Negative SARS-CoV-2 (Negative)
[2023-11-20 14:17] VITALS: RESP 24
--- NOTE | 2023-11-20 14:19 | RESP.RT ---
Code Blue called 09:40 in ED, patient was Bag Mask ventilation, then Rapid Sedation intubated with 7.0 oral ETT, secured at 22.0 cm at teeth. BBS confirmed numerous times during Code Blue to be Bilateral and equal. EtCO2 on monitor 35-39 torr, SaO2 99%. Patient transported to CT head, and cheat and return to [facility], placed on Mechanical ventilation. Patient was suctioned once for no secretions, and returned to mechanical ventilation, until arrival of Helicopter for transport to another facility,
== END 2023-11-20 11:53 | disposition short-term general hospital (02) ==
PROVIDERS: Emergency Provider Family Medicine; PCP Family Medicine
DX: A41.9 Sepsis, unspecified organism (principal); G40.401 Other generalized epilepsy and epileptic syndromes, not intractable, with status epilepticus
CPT/HCPCS: 31500; 36415; 70450; 71045; 71260; 74177; 80048; 80076; 80179; 80306; 81001; 82077; 82150; 83605; 83690; 84145; 84484; 84703; 85025; 85379; 85610; 86140; 87631; 93005; 94761; 96374; 96375; 99140; 99285; 99291; 99292; J0330; J0696; J1953; J2060; J2250; J2704; J3010; J3372; Q9967

== ENCOUNTER 2023-12-02 16:24 | Emergency (ER) | payer OTHER, BC, SELFPAY ==
--- OUTSIDE RECORDS SUMMARY | 2023-12-02 16:28 | XMS_ITS | Clinical Summary ---
Author Organization [employer] [facility] Address [place], [place] [address] Care Team Providers [employer] Front Desk Clerk Name Role Phone Shawna Dominguez MD Primary Care Provider [phone] Allergies Active Allergy Reactions Criticality Noted Date [...] by mouth once daily. 0 8 Active EPINEPHrine (EpiPen) 0.3 mg/0.3 mL auto-injectorIndic ations:Bee sting allergy Inject 0.3 mg intramuscular one time if needed for Allergic Reaction. 2 Each 2 Active albuterol HFA (PRO-AIR; VENTOLIN; PROVENTIL) 90 mcg/actuation inhalerIndications :Mild intermittent asthma without complication Inhale 2 Puffs by mouth every 4 hours if needed for Shortness of Breath 1st choice or Wheezing 2nd choice. 36 g 1 3 Active triamcinolone 0.1 % ointmentIndication s:Skin eruption Apply topically to affected area(s) three times daily. 80 g 4 Active levETIRAcetam (KEPPRA) 1,000 mg tabletIndications: Seizure (HC) Take 1 Tablet (1,000 mg) by mouth two times daily. 180 Tablet 4 Active Blood Pressure Monitor KitIndications:Ess ential hypertension Frequency of testing: daily 1 Each 4 Active gabapentin (NEURONTIN) 300 mg capsuleIndications :Hot flashes Take 2 Capsules (600 mg) by mouth at bedtime. 180 Capsule 4 Active losartan (COZAAR) 50 mg tabletIndications: Essential hypertension Take 1 Tablet (50 mg) by mouth once daily. 90 Tablet 3 4 Active atorvastatin (LIPITOR) 40 mg tabletIndications: Mixed hyperlipidemia Take 1 Tablet (40 mg) by mouth at bedtime. 90 Tablet 3 4 Active venlafaxine (EFFEXOR XR) 150 mg Extended-Release capsuleIndications :Anxiety Take 1 Capsule (150 mg) by mouth once daily with evening meal. 90 Capsule 3 4 Active omeprazole (PRILOSEC) 40 mg Delayed-Release capsuleIndications :Gastroesophageal reflux disease with esophagitis without hemorrhage,Hiatal hernia Take 1 Capsule (40 mg) by mouth once daily before a meal. 90 Capsule 3 4 Active ORDER - MEDICATION ORDER COMPOSERIndication s:Elevated blood pressure reading without diagnosis of hypertension Blood pressure monitor for home use for elevated BP 1 Kit 0 2 024 Discontinued( *Med complete/Layla men complete/Mar[place] l of care change) cyclobenzaprine (FLEXERIL) 10 mg tabletIndications: Muscle spasm,Lumbar back pain Take 1 tablet by mouth 2 times daily if needed for Muscle Spasm. 30 tablet 0 024 Discontinued( Medication therapy change per hospital protocol (E-cancel not sent)) loperamide (IMODIUM) 2 mg capsuleIndications :Vomiting and diarrhea Take 4mg by mouth with 1st loose stool, then 2mg with each subsequent loose stool. Max 16 mg in 24 hrs 10 Capsule 2 024 Discontinued( Pharmacist change per medication history (E-cancel not sent)) metoclopramide HCl (REGLAN) 10 mg tabletIndications: Vomiting and diarrhea Take 1 Tablet (10 mg) by mouth every 6 hours if needed for Nausea/Vomiting. 10 Tablet 2 024 Discontinued( Medication therapy change per hospital protocol (E-cancel not sent)) varenicline (CHANTIX DOSEPAK) 0.5 mg (11)- 1 mg (42) tabletIndications: Encounter for smoking cessation counseling Days 1-3 take 0.5mg once daily; Days 4-7 take 0.5mg twice daily; then increase to 1mg twice daily. Take with meals. 1 Packet 3 024 Discontinued( *Med complete/Layla men complete/Leve l of care change) varenicline (CHANTIX) 1 mg tabletIndications: Encounter for smoking cessation counseling Take 1 mg by mouth two times daily with meals. 112 Tablet 3 024 Discontinued( *Med complete/Lyala men complete/Le[place] of care change) losartan (COZAAR) 50 mg tabletIndications: Essential hypertension Take 1 Tablet (50 mg) by mouth once daily. 90 Tablet 3 3 024 Discontinued( Reorder (E-cancel not sent)) omeprazole (PRILOSEC) 40 mg Delayed-Release capsuleIndications :Gastroesophageal reflux disease with esophagitis without hemorrhage,Hiatal hernia Take 1 Capsule (40 mg) by mouth once daily before a meal. 90 Capsule 3 3 024 Discontinued( Reorder (E-cancel not sent)) polyethylene glycol-electrolyte (GOLYTELY) 236-22.74-6.74 -5.86 gram suspensionIndicati ons:Colon cancer screening Drink 2 liters (1/2 of prep) the day before colonoscopy and drink 2 liters (other 1/2 of prep) 6 hours before colonoscopy appointment. 4000 mL 3 024 Discontinued( *Med complete/Layla men complete/Le[place] l of care change) atorvastatin (LIPITOR) 40 mg tabletIndications: Mixed hyperlipidemia Take 1 Tablet (40 mg) by mouth at bedtime. 90 Tablet 3 3 024 Discontinued( Reorder (E-cancel not sent)) venlafaxine (EFFEXOR XR) 150 mg Extended-Release capsuleIndications :Anxiety Take 1 Capsule (150 mg) by mouth once daily with evening meal. 90 Capsule 3 3 024 Discontinued( Reorder (E-cancel not sent)) gabapentin (NEURONTIN) 100 mg capsuleIndications :Chronic pain of left knee 3 CAPSULES BY MOUTH AT NIGHT 270 Capsule 3 3 024 Discontinued( *IP Discontinued) gabapentin (NEURONTIN) 300 mg capsuleIndications :Hot flashes Take 1 Capsule (300 mg) by mouth at bedtime. 90 Capsule 1 4 024 Discontinued( Reorder (E-cancel not sent)) tiZANidine (ZANAFLEX) 4 mg tabletIndications: Acute right-sided low back pain without sciatica Take 1 Tablet (4 mg) by mouth every 8 hours if needed for Muscle Spasm. 15 Tablet 4 024 Discontinued( *Patient states no longer taking) methylPREDNISolone (Medrol, Raul,) 4 mg tabletIndications: Acute right-sided low back pain without sciatica Take by mouth as instructed per packaging. 21 Tablet 4 024 Discontinued( *Med complete/Layla men complete/Leve l of care change) gabapentin (NEURONTIN) 300 mg capsuleIndications :Hot flashes Take 1 Capsule (300 mg) by mouth at bedtime. 30 Capsule 4 024 Discontinued( Reorder (E-cancel not sent)) Active Problems Problem Noted Date Diagnosed Date Encephalopathy acute 11/21/2023 PRES (posterior reversible encephalopathy syndro me) 11/21/2023 Seizure 11/21/2023 Generalized tonic-clonic seizure 11/21/2023 Acute hypoxemic respiratory failure 11/21/2023 Colon polyp 04/20/2023 Overview (04/20/2023): Colonoscopy 04/2023 large TA, repeat in 3 years Prediabetes 01/06/2023 Pap smear for cervical cancer screening 03/11/19 23 Overview (03/11/2022): 1995: [place] 02/02/2022: NIL/HPV neg Plan: Pap and HPV [...] bral disc 03/24/2008 Impaired fasting glucose 10/24/2007 Mixed hyperlipidemia 10/24/2007 L5-S1 disk bulge with DDD Mild intermittent asthma without complication Resolved Problems Problem Noted Date Diagnosed Date Resolved Date Dyslipidemia 10/01/2015 10/01/2015 Overview (10/01/2015): Low HDL Nonintractable migraine 12/04/201406/04 Ingrowing nail 07/31/2008 03/31/2014 Migraine 12/04/2014 Morbid obesity with BMI of 40.0-44.9, adult 11/22/2023 Encounters Date Type Department Care Team Description 12/02/2023 3:30 PM CDT Office Visit [facility] [address] [place] [address] Vomiting 12/02/2023 Travel 11/30/2023 10:15 AM CDT Orders Only [facility] [address] [place] [address] Lab, [place] [facility] 11/28/2023 10:25 AM CDT Office Visit [facility] [address] [place] [address] Shawna Dominguez MD Hospital F/U 11/28/2023 Travel 11/25/2023 Travel 11/24/2023 Refill [facility] [address] [place] [address] Shawna Dominguez MD Refill Request 11/24/2023 Patient Outreach [facility] [address] [place] [address] Brooklynn Sauer, RN Primary RN Care Management; Hospital F/U (Lace 54) 11/23/2023 Telephone [facility] [address] [place] [address] Shawna Dominguez MD Appointment 11/22/2023 Travel 11/20/2023 12:04 PM CDT - 11/23/2023 12:23 PM CDT Hospital Encounter [facility] [address] [place] [address] Fernandez Hoff, DO Barrera, MD Osmani Edwards Love Ashvinkumar, MBBS Seizure (HC) (Primary Dx) Discharge Disposition: Home Self Care 11/20/2023 Orders Only [facility] Scanner 1 scan: (1-Ord) [facility], HEAD/BRAIN WO, 11/20/2023 11/20/2023 Orders Only [facility] Scanner 1 scan: (1-Ord) [facility] CT CHEST ABDOMEN PELV W CON, 11/20/2023 11/20/2023 Orders Only [facility] Scanner 1 scan: (1-Ord) [facility], XR CHEST 1V PORTABLE, 11/20/2023 11/08/2023 9:35 AM CDT Office Visit [facility] [address] [facility] [place] [address] Shawna Dominguez MD Derm Problem (Spots on [...] lymph n odes Heart Disease Maternal Grandmother HI Cancer Mother b 194 [place] insid e cheek Hyperlipidemia Mother Hypertension Mother Cancer-prostate Paternal Grandfather Cancer Paternal Grandmother lung, k idney, female organs Heart Disease Paternal Grandmother [place] Cancer-breast No Family History Relation Name Status [...] Sign Reading Time Taken Comments Blood Pressure 130/79 12/02/2023 3:41 PM CDT Pulse 109 12/02/2023 3:41 PM CDT Temperature 38.1 ??C (100.6 ??F) 12/02/2023 3:41 PM C DT Respiratory Rate 16 12/02/2023 3:41 PM CDT Oxygen Saturation 97% 12/02/2023 3:41 PM CDT Inhaled Oxygen Concentration - - Weight 100.2 kg (221 lb) 12/02/2023 3:41 PM CDT Height 167.5 cm (5' 5.95) 11/21/2023 3:00 PM CD T Body Mass Index 35.73 11/21/2023 3:00 PM CDT Plan of Treatment Upcoming Encounters Date Type Department Care Team (Late st Contact Info) Description 12/12/2023 2:30 PM CDT Ancillary Procedure [facility] [address] [place] [address] 12/12/2023 3:15 PM CDT Ancillary Procedure [facility] [address] [place] [address] Health Maintenance Due Date Last Done Comments [...] Procedure Name Priority Date/Time Associated Diagnosis Comments COMP METABOLIC PANEL Routine 11/28/2023 10:57 AM CDT Elevated LFTs GLUCOSE METER Timed 11/23/2023 11:52 AM CDT [facility] DRAW ONLY Early AM 11/23/2023 6:47 AM CDT PHOSPHORUS Early AM 11/23/2023 6:47 AM CDT MAGNESIUM Early AM 11/23/2023 6:47 AM CDT COMP METABOLIC PANEL Early AM 11/23/2023 6:47 AM CDT GLUCOSE METER Timed 11/23/2023 6:04 AM CDT GLUCOSE METER Timed 11/23/2023 12:00 AM CDT CONTINUOUS VIDEO EEG MONITORING Routine 11/22/2023 8:33 AM CDT SCAN-CARDIAC STRIP 11/22/2023 8: 00 AM CDT PHOSPHORUS Early AM 11/22/2023 5:06 AM CDT MAGNESIUM Early AM 11/22/2023 5:06 AM CDT POTASSIUM Timed 11/22/2023 5:06 AM CDT CBC W PLT NO DIFF Early AM 11/22/2023 5:0 6 AM CDT COMP METABOLIC PANEL Early AM 11/22/2023 5:06 AM CDT [facility] DRAW ONLY Timed 11/22/2023 5:06 AM CDT LEVETIRACETAM (KEPPRA) Timed 11/22/2023 5:06 AM CDT GLUCOSE METER Timed 11/22/2023 12:10 AM CDT POTASSIUM Timed 11/21/2023 11:00 PM CDT LACTATE VENOUS Today 11/21/2023 6:28 PM CDT POTASSIUM STAT 11/21/2023 6:27 PM CDT [facility] DRAW ONLY STAT 11/21/2023 6:27 PM CDT EXTRA TUBE ODEN Today 11/21/2023 6:25 PM CDT GLUCOSE METER Timed 11/21/2023 6:14 PM CDT MR ANGIO HEAD BRAIN WO Routine 11/21/2023 4:34 PM CDT US VENOUS LOWER EXTREMITY BILATERAL PORTABLE STAT 11/21/2023 1:29 PM CDT SCAN CORRESP-IMAGING 11/21/2023 1:19 PM CDT LACTATE VENOUS Today 11/21/2023 12:07 PM CDT SCAN-CARDIAC STRIP 11/21/2023 7: 59 AM CDT GLUCOSE METER Timed 11/21/2023 6:10 AM CDT LACTATE VENOUS Today 11/21/2023 5:08 AM CDT PHOSPHORUS Early AM 11/21/2023 5:08 AM CDT MAGNESIUM Early AM 11/21/2023 5:08 AM CDT COMP METABOLIC PANEL Early AM 11/21/2023 5:08 AM CDT CBC W PLT NO DIFF Early AM 11/21/2023 5:0 8 AM CDT CK TOTAL Timed 11/21/2023 5:08 AM CDT TRIGLYCERIDES Timed 11/21/2023 5:08 AM CDT LACTATE VENOUS Today 11/20/2023 11:29 PM CDT MR HEAD BRAIN WO CECILE 11/20/2023 9:57 PM CDT GLUCOSE METER Timed 11/20/2023 8:08 PM CDT LIPASE CECILE 11/20/2023 5:31 PM CDT PHOSPHORUS CECILE 11/20/2023 5:31 PM CDT AST (SGOT) STAT 11/20/2023 5:31 PM CDT ALT (SGPT) STAT 11/20/2023 5:31 PM CDT ALK PHOSPHATASE STAT 11/20/2023 5:31 PM CDT BILIRUBIN DIRECT STAT 11/20/2023 5:31 PM CDT POTASSIUM STAT 11/20/2023 5:31 PM CDT LACTATE VENOUS Today 11/20/2023 3:48 PM CDT LACTATE VENOUS Timed 11/20/2023 2:46 PM CDT BLOOD CULTURE STAT 11/20/2023 2:46 PM CDT GLUCOSE METER Timed 11/20/2023 2:32 PM CDT MAGNESIUM STAT 11/20/2023 1:52 PM CDT BLOOD CULTURE STAT 11/20/2023 1:51 PM CDT ARTERIAL BLOOD GAS STAT 11/20/2023 1: 51 PM CDT DRUG SCREEN RAPID URINE INHOUSE CECILE 11/20/2023 1:39 PM CDT URINALYSIS MICROSCOPIC Timed 11/20/2023 1:39 PM CDT UA W/ SEDIMENT EXAM REFLEXED PER CRITERIA Today 11/20/2023 1:39 PM CDT CBC WITH AUTO DIFFERENTIAL STAT 11/20/2023 12:54 PM CDT LACTATE VENOUS Today 11/20/2023 12:54 PM CDT PROTIME-INR STAT 11/20/2023 12:54 PM CDT HEPATIC FUNCTION PANEL STAT 11/20/2023 12:54 PM CDT CBC WITH AUTO DIFFERENTIAL STAT 11/20/2023 12:54 PM CDT BASIC METABOLIC PANEL STAT 11/20/2023 12:54 PM CDT XR CHEST 1 VIEW PORTABLE STAT 11/20/2023 12:36 PM CDT SCAN-CT INTERPRETATION 11/20/2023 12:00 AM CDT SCAN-CT INTERPRETATION 11/20/2023 12:00 AM CDT SCAN-RADIOLOGY REPORT 11/20/2023 12:00 AM CDT [facility] MISCELLANEOUS SENDOUT Routine 11/08/2023 10:34 AM CDT Chronic diarrhea COMP METABOLIC PANEL Routine 11/08/2023 10:34 AM CDT Pure hypercholesterolemia LIPID PANEL W REFLEX MEASURED LDL Routine 11/08/2023 10:34 AM CDT Pure hypercholesterolemia MISCELLANEOUS SEND OUT Routine 11/08/2023 10:34 AM CDT Chronic diarrhea LEEANNE PREP,SKIN,HAIR,NAIL Routine 11/08/2023 9:57 AM CDT Skin eruption COLONOSCOPY DIAGNOSTIC Routine 04/17/2023 12:00 AM [employer] Hematochezia HPV HIGH RISK Routine 02/02/2022 1:51 PM [employer] Cervical cancer screening XR MAMMO BILAT SCREEN FFDM ([place]) Routine 10/01/2015 3:30 PM CDT Visit for screening mammogram from Last 3 Months or Most Recently Relevant to Health Maintenance Results * COMP METABOLIC PANEL (11/28/2023 10:57 AM CDT) Only the most recent of5 resultswithin the time period is included. GLUCOSE 99 65 - 99 mg/dL [facility] Comment: ? Fasting reference interval UREA NITROGEN (BUN) 11 7 - 25 mg/dL [facility] CREATININE 0.82 0.50 - 1.03 mg/dL [facility] EGFR 84 > OR = 60 mL/min/1. 73m2 [facility] BUN/CREATININE RATIO SEE NOTE: 6 (calc) [facility] Comment: ?? Not Reported: BUN and Creatinine are within ?? reference range. ? SODIUM 143 135 - 146 mmol/L [facility] POTASSIUM 4.7 3.5 - 5.3 mmol/L [facility] CHLORIDE 108 98 - 110 mmol/L [facility] CARBON DIOXIDE 23 20 - 32 mmol/L [facility] CALCIUM 9.6 8.6 - 10.4 mg/dL [facility] PROTEIN, TOTAL 6.8 6.1 - 8.1 g/dL [facility] ALBUMIN 4.4 3.6 - 5.1 g/dL [facility] GLOBULIN 2.4 1.9 - 3.7 g/dL (calc) [facility] ALBUMIN/GLOBULIN RATIO 1.8 1.0 - 2.5 (calc) [facility] BILIRUBIN, TOTAL 0.3 0.2 - 1.2 mg/dL [facility] ALKALINE PHOSPHATASE 94 37 - 153 U/L [facility] AST 17 10 - 35 U/L [facility] ALT 21 6 - 29 U/L [facility] Blood BLOOD SPECIMEN / Unknown 11/28/2023 10:57 AM CDT 11/28/2023 10:58 AM CDT Shawna Dominguez MD CHEMISTRY [facility] [employer] [facility] [address] [place] [address], [place] [phone] [facility] [address] * GLUCOSE METER (11/23/2023 11:52 AM CDT) Only the most recent of8 resultswithin the time period is included. [facility] Signature GLUCOSE METER 84 65 - 100 mg/dL 11/23/2023 11:53 AM CDT [facility] Blood BLOOD SPECIMEN / Unknown 11/23/2023 11:52 AM CDT 11/23/2023 11:53 AM CDT Damaris WHITMAN CHEMISTRY [facility] [address] [place] [address], [place] * (ABNORMAL) PHOSPHORUS (11/23/2023 6:47 AM CDT) Only the most recent of4 resultswithin the time period is included. PHOSPHORUS 4.9(H) 2.5 - 4.5 mg/dL 11/23/2023 7:32 AM CDT [facility] Blood BLOOD SPECIMEN / Unknown Venipuncture / Unknown 11/23/2023 6:47 AM CDT 11/23/2023 6:54 AM CDT Machelle Rocha RN CHEMISTRY Performing Organization Address [facility]/ZIP Co de Phone Number [facility] [address] [place] [address], * MAGNESIUM (11/23/2023 6:47 AM CDT) Only the most recent of4 resultswithin the time period is included. MAGNESIUM 1.8 1.6 - 2.6 mg/dL 11/23/2023 7:32 AM CDT [facility] Blood BLOOD SPECIMEN / Unknown Venipuncture / Unknown 11/23/2023 6:47 AM CDT 11/23/2023 6:54 AM CDT Machelle Rocha RN CHEMISTRY Performing Organization Address [facility] Co de Phone Number [facility] [address] [place] [address], * [facility] DRAW ONLY (11/23/2023 6:47 AM CDT) Only the most recent of3 resultswithin the time period is included. CALCIUM,IONIZE D 1.22 1.15 - 1.27 mmol/L 11/23/2023 6:58 AM CDT [facility] Blood BLOOD SPECIMEN / Unknown Venipuncture / Unknown 11/23/2023 6:47 AM CDT 11/23/2023 6:55 AM CDT Machelle Rocha RN CHEMISTRY [facility] [address] [place] [address], * CONTINUOUS VIDEO EEG MONITORING (11/22/2023 8:33 AM CDT) Narrative Elver Caro MD - 11/22/2023 8:33 AM CDT Elver Caro MD ? 11/22/2023 ??7:09 PM [facility], [address] [place], [place] ??[address] Ph: ??[phone] SPECIAL NEURODIAGNOSTIC PROCEDURE - ELECTROENCEPHALOGRAM - EEG Video EEG Report Patient Name: ??Michelle Restrepo : ?1970 Study Date: ?11/22/2023 Study Number: ?? [id number] [id number] Duration: ? 1551-0418, [id number] (16 Hours 56 Minutes) Admit Date: ?11/20/2023 Clinical Note: 53 y.o. female admitted in transfer from an outside hospital where she presented with abdominal issues, confusion, and a subsequent generalized tonic-clonic seizure. ?? She was intubated prior to transfer. ??EEG monitoring to assess for ongoing ictal or interictal abnormalities. ??MRI on 11/20/2023 consistent with PRES. ??She self-extubated on 11/23/2023. Condition of Recording: This is a digital EEG with continuous video recording. ??It utilizes the 21-lead modified international 10/20 system for scalp recordings. ??It also uses video recording to clinically correlate epileptiform abnormalities and improve localization for target clinical events. ??Physician access to data was available throughout the recording period. A daily report, as below, was generated and updated at least once every 24 hour period. Activation Procedures: ??None. Neuroactive Medications: Fentanyl stopped at 0625, Keppra, Propofol stopped at 0625, Precedex stopped at 0625, Effexor. Results: ?? Background: ??Background activity reveals moderate amplitude delta and theta activity with overriding alpha waves. ??No focal slowing. ??The EEG is variable and reactive. ??With stimulation, higher amplitude delta slowing is seen, and delta slowing is often predominating. ??The EEG is somewhat disorganized. ??Off sedation, some increased theta and alpha activity is noted, but slowing continues to predominate, with intermixed higher amplitude delta activity. ??This does improve with time, but intermittent bursts of delta activity are seen to the end of the recording. Sleep: No sleep architecture is recognized. EKG: ??A resting heart rate in the 50s-90s is noted. Interictal Findings: ??None. Ictal Events: ??None. Impression: ??Abnormal EEG due to generalized slowing and disorganization. ??This is improving as the day progresses. ??No seizures, no interictal abnormalities. ?? Clinical Correlation: ??This EEG demonstrates generalized abnormalities, which imply diffuse or bilateral cortical dysfunction, consistent with encephalopathy. Generalized abnormalities may be related to genetic, metabolic, degenerative, structural, vascular, or other pathologies. ??No seizures or interictal discharges. ??Clinical correlation is recommended. ?? Elver Caro MD [facility] This continuous video EEG study was completed from 11/20/2023 to 11/22/2023, with a total recording duration of 46 hours and 1 minute. Fernandez Hoff DO NEUROLOGY ORD * SCAN-CARDIAC STRIP (11/22/2023 8:00 AM CDT) Scanner OTHER * LEVETIRACETAM (KEPPRA) (11/22/2023 5:06 AM CDT) LEVETIRACETAM (KEPPRA) 21.5 6.0 - 46.0 ug/mL 11/22/2023 6:07 AM CDT [facility] Blood BLOOD SPECIMEN / Unknown Venipuncture / Unknown 11/22/2023 5:06 AM CDT 11/22/2023 5:33 AM CDT Narrative [facility] - 11/22/2023 6:07 AM CDT Reference Range is based on Trough Steady State in patients receiving recommended daily dose. ??The relationship between serum concentrations and toxicity is not known. Bivaracetam (Briviact??) interferes with measurements of levetiracetam (Keppra??) in the ARK Levetiracetam Assay Paige HERNANDEZ SEND OUTS [facility] [address] [place] [address], [place] * (ABNORMAL) CBC W PLT NO DIFF (11/22/2023 5:06 AM CDT) Only the most recent of2 resultswithin the time period is included. Pathologist [facility] WHITE BLOOD COUNT 8.4 4.5 - 11.0 thou/cu mm 11/22/2023 5:43 AM CDT [facility] RED BLOOD COUNT 3.67(L) 4.00 - 5.20 mil/cu mm 11/22/2023 5:43 AM CDT [facility] HEMOGLOBIN 11.3(L) 12.0 - 16.0 g/dL 11/22/2023 5:43 AM CDT [facility] HEMATOCRIT 34.1 33.0 - 51.0 % 11/22/2023 5:43 AM CDT [facility] MCV 93 80 - 100 fL 11/22/2023 5:43 AM CDT [facility] MCH 30.8 26.0 - 34.0 pg 11/22/2023 5:43 AM CDT [facility] MCHC 33.1 32.0 - 36.0 g/dL 11/22/2023 5:43 AM CDT [facility] RDW 14.2 11.5 - 15.5 % 11/22/2023 5:43 AM CDT [facility] PLATELET COUNT 280 140 - 440 thou/cu mm 11/22/2023 5:43 AM CDT [facility] MPV 10.9 6.5 - 11.0 fL 11/22/2023 5:43 AM CDT [facility] NRBC 0.0 % 11/22/2023 5:43 AM CDT [facility] ABS NRBC 0.0 thou /cu mm 11/22/2023 5:43 AM CDT [facility] Blood BLOOD SPECIMEN / Unknown Venipuncture / Unknown 11/22/2023 5:06 AM CDT 11/22/2023 5:33 AM CDT Liv HERNANDEZ HEMATOLOGY Performing Organization Address City/[facility]/ZIP Co de Phone Number [facility] [address] [place] [address], [place] * POTASSIUM (11/22/2023 5:06 AM CDT) Only the most recent of4 resultswithin the time period is included. POTASSIUM 4.0 3.5 - 5.1 mmol/L 11/22/2023 6:[address] [facility] Blood BLOOD SPECIMEN / Unknown Venipuncture / Unknown 11/22/2023 5:06 AM CDT 11/22/2023 5:32 AM CDT Jose WHITMAN CHEMISTRY Performing Organization Address [facility] Co tx Phone Number [facility] [address] [place] [address], [place] * LACTATE VENOUS (11/21/2023 6:28 PM CDT) Only the most recent of7 resultswithin the time period is included. LACTATE,VENOUS 1.0 0.5 - 2.0 mmol/L 11/21/2023 7:03 PM CDT [facility] Blood BLOOD SPECIMEN / Unknown Venipuncture / Unknown 11/21/2023 6:28 PM CDT 11/21/2023 6:34 PM CDT Fernandez Hoff DO CHEMISTRY Performing Organization Address [facility] Co de Phone Number [facility] [address] [place] [address], [place] * EXTRA TUBE ODEN (11/21/2023 6:25 PM CDT) Blood BLOOD SPECIMEN / Unknown Non-Lab Venipuncture / Unknown 11/21/2023 6:25 PM CDT 11/21/2023 6:36 PM CDT Isamar Barrera MD LABORATORY [facility] [address] [place] [address], [place] * MR ANGIO HEAD BRAIN WO (11/21/2023 4:34 PM CDT) Anatomical Region Laterality Modality HEAD, BRAIN Magnetic Resonan ce 11/21/2023 4:56 PM CDT Impressions 11/21/2023 4:56 PM CDT Normal MRA head. Dictated by Jerson Aguilar MD @ 11/21/2023 4:56:40 PM (Electronically Signed) Narrative 11/21/2023 4:56 PM CDT For Patients: ??As a result of the Cures Act, medical imaging exams and procedure reports are released immediately into your electronic medical record. ??You may view this report before your referring provider. ??If you have questions, please contact your health care provider. INDICATION: Cerebral vasospasm. Comparison MRI 11/20/2023. TECHNIQUE: [id number] MRA head. 3D reconstructed images. FINDINGS: Bilateral carotid siphons are patent. Patent [place] with diminutive right and patent left posterior communicating arteries. Visualized bilateral ANA and MCA circulations are patent with no high-grade stenosis, [place], or aneurysm. No evidence of focal narrowing or stenoses of the visualized distal arterial branches. Bilateral [employer] circulations are patent with no high-grade stenosis or aneurysm. Patent left dominant vertebrobasilar system. Procedure Note Jerson Aguilar MD, PhD - 11/21/2023 For Patients: As a result of the Cures Act, medical imagingexams and procedure reports are released immediately into your electronicmedical record. You may view this report before your referring provider.If you have questions, please contact your health care provider. INDICATION: Cerebral vasospasm. Comparison MRI 11/20/2023. TECHNIQUE: [id number] MRA head. 3D reconstructed images. FINDINGS: Bilateral carotid siphons are patent. Patent [place] withdiminutive right and patent left posterior communicating arteries. Visualized bilateral ANA and MCA circulations are patent with nohigh-grade stenosis, [place], or aneurysm. No evidence offocal narrowing or stenoses of the visualized distal arterial branches. Bilateral [employer] circulations are patent with no high-grade stenosis oraneurysm. Patent left dominant vertebrobasilar system. IMPRESSION: Normal MRA head. Dictated by Jerson Aguilar MD @ 11/21/2023 4:56:40 PM (Electronically Signed) Liv Cornejo DAVID MR * US VENOUS LOWER EXTREMITY BILATERAL PORTABLE (11/21/2023 1:29 PM CDT) Anatomical Region Laterality Modality LEGS, LEG L, LEG R Ultrasound 11/21/2023 1:31 PM CDT Impressions 11/21/2023 1:31 PM CDT No evidence of deep vein thrombosis within either the left or right lower extremity. Dictated by Celsa Biggs MD @ 11/21/2023 1:31:48 PM (Electronically Signed) Narrative 11/21/2023 1:31 PM CDT For Patients: ??As a result of the Cures Act, medical imaging exams and procedure reports are released immediately into your electronic medical record. ??You may view this report before your referring provider. ??If you have questions, please contact your health care provider. INDICATION: Swelling TECHNIQUE: A compression venous ultrasound exam was performed of both lower extremities using oden scale imaging, color Doppler and spectral Doppler analysis. FINDINGS: Sonographic imaging of the lower extremities demonstrates normal compressibility and color Doppler venous blood flow within the common femoral, deep femoral, and proximal greater saphenous veins. Within the thighs the femoral veins are patent and compressible. At a lower level the popliteal and posterior tibial veins also show normal compressibility and color Doppler venous blood flow. Procedure Note Celsa Biggs MD - 11/21/2023 For Patients: As a result of the Cures Act, medical imagingexams and procedure reports are released immediately into your electronicmedical record. You may view this report before your referring provider.If you have questions, please contact your health care provider. INDICATION: Swelling TECHNIQUE: A compression venous ultrasound exam was performed of both lowerextremities using oden scale imaging, color Doppler and spectral Doppleranalysis. FINDINGS: Sonographic imaging of the lower extremities demonstrates normalcompressibility and color Doppler venous blood flow within the commonfemoral, deep femoral, and proximal greater saphenous veins. Within thethighs the femoral veins are patent and compressible. At a lower level thepopliteal and posterior tibial veins also show normal compressibility andcolor Doppler venous blood flow. IMPRESSION: No evidence of deep vein thrombosis within either the left or right lowerextremity. Dictated by Celsa Biggs MD @ 11/21/2023 1:31:48 PM (Electronically Signed) Liv HERNANDEZ US * SCAN CORRESP-IMAGING (11/21/2023 1:19 PM CDT) Anatomical Region Laterality Modality Other Narrative 11/21/2023 1:19 PM CDT Ordered by an unspecified provider. Other Clinical Staff OTHER * SCAN-CARDIAC STRIP (11/21/2023 7:59 AM CDT) Scanner OTHER * (ABNORMAL) TRIGLYCERIDES propofol (11/21/2023 5:08 AM CDT) Pathologist [facility] [place] TRIGLYCERIDES 165(H) <150 mg/dL 11/21/2023 6:00 AM CDT [facility] PROVIDER ORDERED STATUS RANDOM 11/21/2023 6:00 AM CDT [facility] Blood BLOOD SPECIMEN / Unknown Venipuncture / Unknown 11/21/2023 5:08 AM CDT 11/21/2023 5:25 AM CDT Fernandez Hoff DO CHEMISTRY [facility] [address] [place] [address], [place] * (ABNORMAL) CK TOTAL propofol (11/21/2023 5:08 AM CDT) Pathologist [facility] [place] CK,TOTAL 613(H) 26 - 192 IU/L 11/21/2023 6:01 AM CDT [facility] Blood BLOOD SPECIMEN / Unknown Venipuncture / Unknown 11/21/2023 5:08 AM CDT 11/21/2023 5:25 AM CDT Fernandez Hoff DO CHEMISTRY [facility] [address] [place] [address], * MR BRAIN WO CONTRAST (11/20/2023 9:57 PM CDT) Anatomical Region Laterality Modality BRAIN, HEAD Magnetic Resonan ce 11/20/2023 10:3 9 PM CDT Narrative 11/20/2023 10:39 PM CDT For Patients: ??As a result of the Cures Act, medical imaging exams and procedure reports are released immediately into your electronic medical record. ??You may view this report before your referring provider. ??If you have questions, please contact your health care provider. Indication: Seizure, new-onset, no history of trauma Technique: Noncontrast sagittal T1, axial FLAIR, T2, SWI, diffusion weighted sequences are provided. Additional high-resolution coronal FLAIR, T2 and T1 weighted sequences are provided. Comparison: CT head 11/20/2023 Findings: There is no evidence of diffusion restriction to suggest acute ischemia. No midline shift. No hydrocephalus. No pathologic susceptibility artifacts. Expected intracranial vascular flow voids are preserved. The pituitary gland, optic chiasm, pituitary gland, and cerebellar tonsils are unremarkable. Nasogastric tube and endotracheal tubes are noted. There are multiple scattered regions of oden matter edema involving the bilateral frontal and parietal watershed territories, bilateral parafalcine parietal cortex and subcortical white matter and bilateral occipital lobe subcortical white matter. Signal abnormalities are most prominent in the right occipital lobe. No suspicious extra-axial collection or acute intracranial hemorrhage. No signal abnormalities in the anterior temporal lobes or hippocampi. The deep oden matter is unremarkable. A few sternotomy wires are also noted in the posterior aspect of the bilateral cerebellar hemispheres best seen on series 14, image 114 and 75. Mild right mastoid effusion. Impression: 1. Multiple scattered regions of cortical and subcortical edema involving the frontal, parietal lobe and bilateral occipital lobes, in addition to the posterior cingulate gyri and bilateral cerebellum. ??Differential considerations include acute hypertensive encephalopathy (PRES), postictal changes due to status epilepticus, or combination thereof. 2. No evidence of acute infarct or hemorrhage. No midline shift. No hydrocephalus. 3. Mild right mastoid effusion. Dictated by Fernandez Isidro MD @ 11/20/2023 10:39:21 PM (Electronically Signed) Procedure Note Fernandez Isidro MD - 11/20/2023 For Patients: As a result of the Cures Act, medical imagingexams and procedure reports are released immediately into your electronicmedical record. You may view this report before your referring provider.If you have questions, please contact your health care provider. Indication: Seizure, new-onset, no history of trauma Technique: Noncontrast sagittal T1, axial FLAIR, T2, SWI, diffusion weightedsequences are provided. Additional high-resolution coronal FLAIR, T2 andT1 weighted sequences are provided. Comparison: CT head 11/20/2023 Findings: There is no evidence of diffusion restriction to suggest acute ischemia.No midline shift. No hydrocephalus. No pathologic susceptibilityartifacts. Expected intracranial vascular flow voids are preserved. Thepituitary gland, optic chiasm, pituitary gland, and cerebellar tonsils areunremarkable. Nasogastric tube and endotracheal tubes are noted. There aremultiple scattered regions of oden matter edema involving the bilateralfrontal and parietal watershed territories, bilateral parafalcine parietalcortex and subcortical white matter and bilateral occipital lobesubcortical white matter. Signal abnormalities are most prominent in theright occipital lobe. No suspicious extra-axial collection or acuteintracranial hemorrhage. No signal abnormalities in the anterior temporallobes or hippocampi. The deep oden matter is unremarkable. A fewsternotomy wires are also noted in the posterior aspect of the bilateralcerebellar hemispheres best seen on series 14, image 114 and 75. Mildright mastoid effusion. Impression: 1. Multiple scattered regions of cortical and subcortical edema involvingthe frontal, parietal lobe and bilateral occipital lobes, in addition tothe posterior cingulate gyri and bilateral cerebellum. Differentialconsiderations include acute hypertensive encephalopathy (PRES), postictalchanges due to status epilepticus, or combination thereof. 2. No evidence of acute infarct or hemorrhage. No midline shift. Nohydrocephalus. 3. Mild right mastoid effusion. Dictated by Fernandez Isidro MD @ 11/20/2023 10:39:21 PM (Electronically Signed) Paige HERNANDEZ MR * ALT (SGPT) (11/20/2023 5:31 PM CDT) ALT (SGPT) 26 10 - 35 IU/L 11/20/2023 6:08 PM CDT [facility] Blood BLOOD SPECIMEN / Unknown Venipuncture / Unknown 11/20/2023 5:31 PM CDT 11/20/2023 5:40 PM CDT Fernandez Hoff DO CHEMISTRY Performing Organization Address City/[facility]/ZIP Co de Phone Number [facility] [address] [place] [address], [place] * AST (SGOT) (11/20/2023 5:31 PM CDT) AST (SGOT) 33 10 - 35 IU/L 11/20/2023 6:08 PM CDT [facility] Blood BLOOD SPECIMEN / Unknown Venipuncture / Unknown 11/20/2023 5:31 PM CDT 11/20/2023 5:40 PM CDT Fernandez Hoff DO CHEMISTRY [facility] [address] [place] [address], [place] * (ABNORMAL) ALK PHOSPHATASE (11/20/2023 5:31 PM CDT) ALK PHOSPHATASE 112(H) 35 - 104 IU/L 11/20/2023 6:08 PM CDT [facility] Blood BLOOD SPECIMEN / Unknown Venipuncture / Unknown 11/20/2023 5:31 PM CDT 11/20/2023 5:40 PM CDT Fernandez Hoff DO CHEMISTRY Performing Organization Address City/[facility]/ZIP Co de Phone Number [facility] [address] [place] [address], * LIPASE (11/20/2023 5:31 PM CDT) Pathologist [facility] [place] LIPASE 13.1 13.0 - 60.0 IU/L 11/20/2023 6:08 PM CDT [facility] Blood BLOOD SPECIMEN / Unknown Venipuncture / Unknown 11/20/2023 5:31 PM CDT 11/20/2023 5:40 PM CDT Fernandez Hoff DO CHEMISTRY Performing Organization Address [facility] Co de Phone Number [facility] [address] [place] [address], * BILIRUBIN DIRECT (11/20/2023 5:31 PM CDT) Pathologist [facility] [place] BILIRUBIN,DIRE CT <0.1 0.0 - 0.2 mg/dL 11/20/2023 6:10 PM CDT [facility] Blood BLOOD SPECIMEN / Unknown Venipuncture / Unknown 11/20/2023 5:31 PM CDT 11/20/2023 5:40 PM CDT Fernandez Hoff DO CHEMISTRY Performing Organization Address City/[facility] Co de Phone Number [facility] [address] [place] [address], * Blood Culture (11/20/2023 2:46 PM CDT) Only the most recent of2 resultswithin the time period is included. [facility] CULTURE No Growth. 11/25/2023 4:22 PM CDT [facility] Blood BLOOD SPECIMEN / Unknown IV Start / Unknown 11/20/2023 2:46 PM CDT 11/20/2023 2:52 PM CDT Narrative [facility] - 11/25/2023 4:22 PM CDT Low volume blood culture received; possible false negative culture. Fernandez Hoff DO MICROBIOLOGY Performing Organization Address [facility]/ZIP Co de Phone Number [facility] [address] [place] [address], * (ABNORMAL) Arterial Blood Gas (11/20/2023 1:51 PM CDT) PH, ARTERIAL 7.36 7.35 - 7.45 11/20/2023 2:03 PM CDT [facility] PCO2, ARTERIAL 42 32 - 45 mmHg 11/20/19 2:03 PM CDT [facility] PO2, ARTERIAL 84 83 - 108 mmHg 11/20/2023 2:03 PM CDT [facility] HCO3, ARTERIAL 24 21 - 28 mmol/L 11/20/2023 2:03 PM CDT [facility] BASE EXCESS, ARTERIAL -1.3 -2.0 - 3.0 11/20/2023 2:03 PM CDT [facility] O2 SATURATION, ARTERIAL 99(H) 94 - 98 % 11/20/2023 2:03 PM CDT [facility] INSPIRED O2 30 11/20/2023 2:03 PM CDT [facility] Comment:Unit of Measure: Lit ers (L) if <=20; Percent (%) if >20 PATIENT TEMPERATURE 36.7 Degrees C 11/20/2023 2:03 PM CDT [facility] Blood ARTERIAL BLOOD SPECIMEN / Unknown Non-Lab Venipuncture / Unknown 11/20/2023 1:51 PM CDT 11/20/2023 1:59 PM CDT Fernandez Hoff DO CHEMISTRY Performing Organization Address [facility]/ZIP Co de Phone Number [facility] [address] [place] [address], * (ABNORMAL) DRUG SCREEN RAPID URINE INHOUSE (11/20/2023 1:39 PM CDT) THC METABOLITES,MISHA L Non-negative , consider further testing if indicated(A) Not Detected 11/21/2023 1:48 AM CDT [facility] PCP,QUAL Not Detected Not Detected 11/21/2023 1:48 AM CDT [facility] COCAINE,QUAL Not Detected Not Detected 11/21/2023 1:48 AM CDT [facility] METHAMPHETAMINE , QUALITATIVE Not Detected Not Detected 11/21/2023 1:48 AM CDT [facility] OPIATES,QUAL Not Detected Not Detected 11/21/2023 1:48 AM CDT [facility] AMPHETAMINE, QUALITATIVE Not Detected Not Detected 11/21/2023 1:48 AM CDT [facility] BENZODIAZEPINES ,QUAL Non-negative , consider further testing if indicated(A) Not Detected 11/21/2023 1:48 AM CDT [facility] TRICYCLICS,QUAL Not Detected Not Detected 11/21/2023 1:48 AM CDT [facility] METHADONE, QUALITATIVE Not Detected Not Detected 11/21/2023 1:48 AM CDT [facility] BARBITURATES,QU AL Not Detected Not Detected 11/21/2023 1:48 AM CDT [facility] OXYCODONE, QUALITATIVE Not Detected Not Detected 11/21/2023 1:48 AM CDT [facility] BUPRENORPHINE, QUALITATIVE Not Detected Not Detected 11/21/2023 1:48 AM CDT [facility] Urine URINE SPECIMEN / Unknown Non-Blood / Unknown 11/20/2023 1:39 PM CDT 11/20/2023 1:46 PM CDT [facility] - 11/21/2023 1:48 AM CDT Please Note: ?? This is a screening test only, all results are unconfirmed and should be used for medical purposes only. ??Unconfirmed results must not be used for non-medical purposes (e.g., employment testing, legal testing). ??Suggest analyte specific confirmation for all non-negative results. ??Specimens will be held for 24 hours if additional testing is needed. ?? The following threshold concentrations are used for this analysis: ? Drug ? Screening Threshold ? Buprenorphine ? 10 ng/mL PCP ? 25 ng/mL ?? THC Metabolites ? 50 ng/mL *Opiates ? 100 ng/mL Oxycodone ?100 ng/mL Cocaine ?150 ng/mL Benzodiazepines ?150 ng/mL ?? Methadone ?200 ng/mL ?? Barbiturates ? 200 ng/mL Tricyclic Antidepressants ?300 ng/mL ?? Amphetamines ? 500 ng/mL ?? Methamphetamines ? 500 ng/mL ?*Includes related compounds: ? Codeine ?50 ng/mL ? Heroin ?100 ng/mL ? Morphine ?100 ng/mL ? Hydrocodone ? 400 ng/mL ? Hydromorphone ? 800 ng/mL ?Venlafaxine (Effexor) is a known cross reactant in the PCP ?assay. ??If clinically indicated, order PCP confirmation. Jose WHITMAN URINE Performing Organization Address [facility] de Phone Number [facility] [address] [place] [address] * (ABNORMAL) URINALYSIS MICROSCOPIC (11/20/2023 1:39 PM CDT) RBC 0-2 0-2, None Seen /HPF 11/20/2023 2:46 PM CDT [facility] WBC 0-2 0-2, 3-5, None Seen /HPF 11/20/2023 2:46 PM CDT [facility] BACTERIA None Seen None Seen, Rare, Few Bacteria/ HPF 11/20/2023 2:46 PM CDT [facility] EPITHELIAL CELLS None Seen None Seen, Few Epi/HPF 11/20/2023 2:46 PM CDT [facility] HYALINE CASTS 0-2 0-2, 3-5 /LPF 11/20/2023 2:46 PM CDT [facility] URIC ACID CRYSTALS Present(A) (none) 11/20/2023 2:46 PM CDT [facility] Urine URINE SPECIMEN / Unknown Non-Blood / Unknown 11/20/2023 1:39 PM CDT 11/20/2023 1:46 PM CDT Fernandez Hoff DO URINE Performing Organization Address City/[facility] Co de Phone Number [facility] [address] [place] [address], [place] * (ABNORMAL) Urinalysis W Reflex Microscopic if Positive (11/20/2023 1:39 PM CDT) COLOR Yellow Yellow Color 11/20/2023 2:46 PM CDT [facility] CLARITY Turbid(A) Clear Clarity 11/20/2023 2:46 PM CDT [facility] SPECIFIC GRAVITY,URINE >=1.030(A) 1.010, 1.015, 1.020, 1.025 11/20/2023 2:46 PM CDT [facility] PH,URINE 6.5 6.0, 7.0, 8.0, 5.5, 6.5, 7.5, 8.5 11/20/2023 2:46 PM CDT [facility] UROBILINOGEN, QUALITATIVE Normal Normal EU/dl 11/20/2023 2:46 PM CDT [facility] PROTEIN, URINE Trace(A) Negative mg/dL 11/20/2023 2:46 PM CDT [facility] GLUCOSE, URINE Negative Negative mg/dL 11/20/2023 2:46 PM CDT [facility] KETONES,URINE Negative Negative mg/dL 11/20/2023 2:46 PM CDT [facility] BILIRUBIN,URI NE Negative Negative 11/20/2023 2:46 PM CDT [facility] OCCULT BLOOD,URINE Negative Negative 11/20/2023 2:46 PM CDT [facility] NITRITE Negative Negative 11/20/2023 2:46 PM CDT [facility] LEUKOCYTE ESTERASE Negative Negative 11/20/2023 2:46 PM CDT [facility] Urine URINE SPECIMEN / Unknown Non-Blood / Unknown 11/20/2023 1:39 PM CDT 11/20/2023 1:46 PM CDT Fernandez Hoff DO URINE [facility] [address] [place] [address], [place] * (ABNORMAL) CBC WITH AUTO DIFFERENTIAL (11/20/2023 12:54 PM CDT) WHITE BLOOD COUNT 21.7(H) 4.5 - 11.0 thou/cu mm 11/20/2023 1:10 PM CDT [facility] RED BLOOD COUNT 4.51 4.00 - 5.20 mil/cu mm 11/20/2023 1:10 PM CDT [facility] HEMOGLOBIN 14.0 12.0 - 16.0 g/dL 11/20/2023 1:10 PM CDT [facility] HEMATOCRIT 41.4 33.0 - 51.0 % 11/20/2023 1:10 PM CDT [facility] MCV 92 80 - 100 fL 11/20/2023 1:10 PM CDT [facility] MCH 31.0 26.0 - 34.0 pg 11/20/2023 1:10 PM CDT [facility] MCHC 33.8 32.0 - 36.0 g/dL 11/20/2023 1:10 PM CDT [facility] RDW 13.7 11.5 - 15.5 % 11/20/2023 1:10 PM CDT [facility] PLATELET COUNT 342 140 - 440 thou/cu mm 11/20/2023 1:10 PM CDT [facility] MPV 10.6 6.5 - 11.0 fL 11/20/2023 1:10 PM CDT [facility] NRBC 0.0 % 11/20/2023 1:10 PM CDT [facility] ABS NRBC 0.0 thou /cu mm 11/20/2023 1:10 PM CDT [facility] % NEUT 89.5 % 11/20/2023 1:10 PM CDT [facility] % LYMPH 4.3 % 11/20/2023 1:10 PM CDT [facility] % MONO 5.2 % 11/20/2023 1:10 PM CDT [facility] % EOS 0.0 % 11/20/2023 1:10 PM CDT [facility] % BASO 0.1 % 11/20/2023 1:10 PM CDT [facility] % IMMATURE GRAN (METAS,MYELOS,PA OS) 0.9 % 11/20/2023 1:10 PM CDT [facility] ABSOLUTE NEUTROPHILS 19.5(H) 1.7 - 7.0 thou/cu mm 11/20/2023 1:10 PM CDT [facility] ABSOLUTE LYMPHOCYTES 0.9 0.9 - 2.9 thou/cu mm 11/20/2023 1:10 PM CDT [facility] ABSOLUTE MONOCYTES 1.1(H) <0.9 thou/cu mm 11/20/2023 1:10 PM CDT [facility] ABSOLUTE EOSINOPHILS 0.0 <0.5 thou/cu mm 11/20/2023 1:10 PM CDT [facility] ABSOLUTE BASOPHILS 0.0 <0.3 thou/cu mm 11/20/2023 1:10 PM CDT [facility] ABSOLUTE IMMATURE GRANULOCYTES(MET ,MYELOS,PROS) 0.2 <0.3 thou/cu mm 11/20/2023 1:10 PM CDT [facility] Blood BLOOD SPECIMEN / Unknown Non-Lab Venipuncture / Unknown 11/20/2023 12:54 PM CDT 11/20/2023 1:04 PM CDT Fernandez Hoff DO HEMATOLOGY [facility] [address] [place] [address], * Protime - INR (11/20/2023 12:54 PM CDT) INR 1.1 <1.3 11/20/2023 1:12 PM CDT [facility] PROTIME 12.0 10.3 - 12.3 sec 11/20/2023 1:12 PM CDT [facility] Blood BLOOD SPECIMEN / Unknown Non-Lab Venipuncture / Unknown 11/20/2023 12:54 PM CDT 11/20/2023 1:04 PM CDT [facility] - 11/20/2023 1:12 PM CDT ?Therapeutic Range 2.0-3.0 for most anticoagulated patients 2.5-3.5 or 4.0 for high risk patients The INR is only used for patients on stable oral anticoagulant therapy. It makes no significant contribution to the diagnosis or treatment of patients whose Protime is prolonged for other reasons. INR results are increased when heparin levels exceed 1.0 U/mL, which corresponds to an aPTT >125 seconds if the patient is on UFH. Fernandez Hoff DO HEMATOLOGY [facility] [address] [place] [address], * Hepatic Function Panel (11/20/2023 12:54 PM CDT) Pathologist [facility] [place] ALBUMIN 4.4 4.0 - 4.9 g/dL 11/20/2023 1:57 PM CDT [facility] PROTEIN,TOTAL 7.6 6.0 - 8.0 g/dL 11/20/2023 1:57 PM CDT [facility] BILIRUBIN,TOTAL 0.2 0.0 - 1.2 mg/dL 11/20/2023 1:57 PM CDT [facility] BILIRUBIN,DIRECT 11/20/19 24 1:57 PM CDT [facility] Comment:Canceled- Specimen H emolyzed, Disposition Per Policy BILIRUBIN,INDIRE CT 11/20/2023 1:57 PM CDT [facility] Comment:Canceled- Specimen H emolyzed, Disposition Per Policy ALK PHOSPHATASE 1:57 PM CDT [facility] Comment:Canceled- Specimen H emolyzed, Disposition Per Policy ALT (SGPT) 11/20/2023 1:57 PM CDT [facility] Comment:Canceled- Specimen H emolyzed, Disposition Per Policy AST (SGOT) 11/20/2023 1:57 PM CDT [facility] Comment:Canceled- Specimen H emolyzed, Disposition Per Policy Blood BLOOD SPECIMEN / Unknown Non-Lab Venipuncture / Unknown 11/20/2023 12:54 PM CDT 11/20/2023 1:04 PM CDT Fernandez Hoff DO CHEMISTRY [facility] [address] [place] [address], * (ABNORMAL) Basic Metabolic Panel (11/20/2023 12:54 PM CDT) SODIUM 135(L) 136 - 145 mmol/L 11/20/2023 1:54 PM CDT [facility] POTASSIUM 11/20/2023 1:54 PM CDT [facility] Comment:Canceled- Specimen H emolyzed, Disposition Per Policy CHLORIDE 104 98 - 107 mmol/L 11/20/2023 1:54 PM CDT [facility] CO2,TOTAL 16(L) 22 - 29 mmol/L 11/20/2023 1:54 PM CDT [facility] ANION GAP 15 5 - 18 11/20/2023 1:54 PM CDT [facility] GLUCOSE 131(H) 70 - 99 mg/dL 11/20/2023 1:54 PM CDT [facility] CALCIUM 9.1 8.6 - 10.0 mg/dL 11/20/2023 1:54 PM CDT [facility] BUN 12 6 - 20 mg/dL 11/20/2023 1:54 PM CDT [facility] CREATININE 0.81 0.50 - 0.90 mg/dL 11/20/2023 1:54 PM CDT [facility] BUN/CREAT RATIO 15 10 - 20 4 1:54 PM CDT [facility] eGFR 86(L) >90 mL/min/1.7 3m2 11/20/2023 1:54 PM CDT [facility] Comment:As of 2021, eG FR is calculated by the CKD-EPI creatinine equation without race adjustment. ??eGFR can be influenced by muscle mass, exercise, and diet. ??The reported eGFR is an estimation only and is only applicable if the renal function is stable. Blood BLOOD SPECIMEN / Unknown Non-Lab Venipuncture / Unknown 11/20/2023 12:54 PM CDT 11/20/2023 1:04 PM CDT Fernandez Hoff DO CHEMISTRY [facility] [address] [place] [address], [place] * XR CHEST 1 VIEW PORTABLE (11/20/2023 12:36 PM CDT) Anatomical Region Laterality Modality HEART, THORAX, CHEST Digital Rad iography 11/20/2023 3:11 PM CDT Narrative 11/20/2023 3:11 PM CDT For Patients: ??As a result of the 21st Century Cures Act, medical imaging exams and procedure reports are released immediately into your electronic medical record. ??You may view this report before your referring provider. ??If you have questions, please contact your health care provider. INDICATION: ET tube placement. TECHNIQUE: Chest 1 view(s) COMPARISON: None. FINDINGS/IMPRESSION: Endotracheal tube tip is 4.6 cm above the cameron. Nasogastric tube tip and side port project over the expected region of the stomach. Cardiomediastinal silhouette and pulmonary vasculature are normal. No focal consolidation. No significant layering pleural effusion, no pneumothorax. Dictated by Juarez Hardy MD @ Nov 20 2023 ??3:11PM (Electronically Signed) [email or web address] Procedure Note Juarez Hardy MD - 11/20/2023 For Patients: As a result of the Century Cures Act, medical imagingexams and procedure reports are released immediately into your electronicmedical record. You may view this report before your referring provider.If you have questions, please contact your health care provider. INDICATION: ET tube placement. TECHNIQUE: Chest 1 view(s) COMPARISON: None. FINDINGS/IMPRESSION: Endotracheal tube tip is 4.6 cm above the cameron. Nasogastric tube tip andside port project over the expected region of the stomach. Cardiomediastinal silhouette and pulmonary vasculature are normal. Nofocal consolidation. No significant layering pleural effusion, nopneumothorax. Dictated by Juarez Hardy MD @ Nov 20 2023 3:11PM (Electronically Signed) [email or web address] Fernandez Hoff DO GENERAL IMAGIN G * SCAN-RADIOLOGY REPORT (11/20/2023 12:00 AM CDT) Anatomical Region Laterality Modality Other Scanner OTHER * SCAN-CT INTERPRETATION (11/20/2023 12:00 AM CDT) Only the most recent of2 resultswithin the time period is included. Anatomical Region Laterality Modality Other Scanner OTHER * [employer] MISCELLANEOUS SENDOUT (11/08/2023 10:34 AM CDT) [facility] COMMENT 11/15/2023 5:08 PM CDT [facility] Comment: Test Ordered: [id number] Porphobilinogen, Qn, Random Ur Test(s) 323346-[id number], Qn, Random Ur was developed and its performance characteristics determined by [employer]. It has not been cleared or approved by the Food and Drug Administration. Porphobilinogen, Qn, Random Ur 0.5 ?mg/L ? 01 ? Reference Range: 0.0-2.0 ? Other (Other) Non-Blood / Unknown 11/08/2023 10:34 AM CDT 11/08/2023 10:35 AM CDT Narrative [facility] - 11/15/2023 5:08 PM CDT Performed At: 01 [facility] [address] [place], [place] [id number] Bryan Yepez MD Ph:[phone] Performed At: [address] [id number] Ashli Kruse MD Ph:[phone] hSawna Dominguez MD LABORATORY [facility] ([facility]) [address] [place] [address] * (ABNORMAL) LIPID PANEL W REFLEX MEASURED LDL (11/08/2023 10:34 AM CDT) CHOLESTEROL,TOTAL 179 100 - 199 mg/dL 11/08/2023 4:37 PM CDT [facility] Comment: Cholesterol, Total Reference Ranges Desirable <200 mg/dL Borderline 200-239 mg/dL High >=240 mg/dL TRIGLYCERIDES 157(H) <150 mg/dL 11/08/2023 4:37 PM CDT [facility] HDL CHOLESTEROL 46 >40 mg/dL 4:37 PM CDT [facility] NON-HDL CHOLESTEROL 133 <145 mg/dl 11/08/2023 4:37 PM CDT [facility] CHOL/HDL RATIO 3.89 <4.50 11/08/2023 4:37 PM CDT [facility] LDL CHOLESTEROL 102 <=130 mg/dL 11/08/2023 4:37 PM CDT [facility] VLDL CHOLESTEROL 31(H) <=30 mg/dL 11/08/2023 4:37 PM CDT [facility] PROVIDER ORDERED STATUS RANDOM 11/08/2023 4:37 PM CDT [facility] Blood BLOOD SPECIMEN / Unknown Venipuncture / Unknown 11/08/2023 10:34 AM CDT 11/08/2023 10:35 AM CDT Shawna Dominguez MD CHEMISTRY Performing Organization Address City/[facility]/ZIP Co de Phone Number [facility] [address] [place] [address], [place] * MISCELLANEOUS SEND OUT (11/08/2023 10:34 AM CDT) TEST NAME Porphobilinogen, quantitative, random urine 11/09/2023 11:21 AM CDT [facility] SOURCE urine 11/09/2023 11:21 AM CDT [facility] PERFORMING LAB [facility] [place] 11/09/2023 11:21 AM CDT [facility] REFERR[facility] LAB TEST # [id number] 11/09/2023 11:21 AM CDT [facility] IS THIS A [facility] TEST? Yes, See [facility] Miscellaneous Sendout result 11/09/2023 11:21 AM CDT [facility] Other (Other) Non-Blood / Unknown 11/08/2023 10:34 AM CDT 11/08/2023 10:35 AM CDT Shawna Dominguez MD SEND OUTS Performing Organization Address City/[facility]/ZIP Co de Phone Number [facility] [address] [place] [address], [place] * LEEANNE PREP,SKIN,HAIR,NAIL (11/08/2023 9:57 AM CDT) OBSERVATION No fungal elements seen 11/08/2023 10:11 AM CDT [facility] Other SPECIMEN FROM SKIN OBTAINED BY SCRAPING / Unknown Non-Blood / Unknown 11/08/2023 9:57 AM CDT 11/08/2023 9:59 AM CDT Shawna Dominguez MD MICROBIOLOGY Performing Organization Address City/[facility]/ZIP Co de Phone Number [facility] [address] [place] [address], [place] [phone] * COLONOSCOPY DIAGNOSTIC (04/17/2023 12:00 AM [employer] SCHOOL READING TEACHER) Shawna Dominguez MD GI PROCEDURE ORD * HPV HIGH RISK (02/02/2022 1:51 PM [employer] READING TEACHER) TYPE 16 Negative Negative 02/07/2022 11:11 AM [employer] S[employer] READING TEACHER [facility] TYPE 18 Negative Negative 02/07/2022 11:11 AM [employer] SCHO[employer] READING TEACHER [facility] OTHER HIGH RISK TYPES Negative Negative 02/07/2022 11:11 AM [employer] S[employer] READING TEACHER [facility] Other (Cervical/Vagina l) Non-Blood / Unknown 02/02/2022 1:51 PM [employer] READING TEACHER 02/03/2022 2:53 PM [employer] READING TEACHER Narrative [facility] - 02/07/2022 11:11 AM [employer] READING TEACHER HPV types 16, 18, 31, 33, 35, 39, 45, 51, 52, 56, 58, 59, 66 and 68 DNA were undetectable or below the pre-set threshold. Methodology: Rosaline Bhavin 4800 HPV Test Bony Little MD MICROBIOLOGY Performing Organization Address City/[facility]/ZIP Co de Phone Number [facility] [address] [place] [address], [place] * XR MAMMO BILAT SCREEN FFDM [...] of Computer-Aided Detection. COMPARISON FILMS: Yes 05/13/11 [facility] 12/23/09 [facility] FINDINGS: ??Mammographically, the breast tissue has scattered fibroglandular densities. ??No suspicious masses or microcalcifications. ?? Benign appearing calcifications within left breast and Benign appearing asymmetry within left breast. Bony Little MD MAMMO from Last 3 Months or Most Recently Relevant to Health Maintenance Advance Directives * Full Code (Latest Code Status on File) Date Activated Date Inactivated Comments 11/20/2023 12:05 PM 11/23/2023 2:29 PM Question Answer Comments Code Status Discussion: Reviewed Preferences * Full Code Date Activated Date Inactivated Comments 04/01/2014 4:00 PM 04/02/2014 1:31 PM * Full Code Date Activated Date Inactivated Comments 04/01/2014 8:40 AM 04/01/2014 4:00 PM Care Teams Motel Front Desk Clerk Relationship Specialty Start Date End Date Shawna Dominguez MD [address] [place] [address] PCP - General Family Practice 07/06/22
--- OUTSIDE RECORDS SUMMARY | 2023-12-02 16:28 | XMS_ITS | Continuity of Care Document ---
Author Organization [facility] Address [address] [place] [address] Phone Care Team Providers Care Electric Locomotive Crane Operator Name Role Phone Roberto Claros MD Unavailable Unavailable Allergies, Adverse Reactions, Alerts Substance Reaction Status Criticality Penicillins Active No Information Medications Medication Instructions Dosage Effective Dates (start - stop) Status Comments NABUMETONE (unknown strength) Not Available - Active LANSOPRAZOLE (unknown strength) Not Available - Active Procedures Procedure Date Postop Followup Visit Postop Followup Visit Postop Followup Visit Low Back Disk Surgery/Decompress 2014 Pa Assist Low Back Disk Surgery/Decompre ss Office/Outpatient Visit,[facility] 2014 X-Ray Exam Of Lower Spine, Bending Advance Directives Directive Yes / No Effective Date File Name No Information Encounters Encounter Description Practice Location Reason(s) For Visit Diagnoses Date Provider Providers Copied on Encounter [facility], [address], [place], [place], [id number] , [place] tel: [phone] [facility] No Information 6 Mehbod Amir. [facility], [address] [place] [address] [address], [place], [place], [id number] , [place]. tel: [phone] [facility], [address], [place], [place], [id number] , [place] tel: [phone] [facility] Lumbago 0 5 Mehbod Amir. [facility], [address], [place], [id number] , [place]. tel: [phone] [facility], [address], [place], [id number] , [place] tel: [phone] [facility] OVERWEIGHTLumbar radiculopathyLumb ago 6-201 5 Mehbod Amir. [facility], [address], [place], [place], [id number] , [place]. tel: [phone] [facility], [address], [place], [place], [id number] , [place] tel: [phone] [facility] OVERWEIGHTBackach e, unspecified 3 5 Mehbod Amir. [facility], [address], [place], [place], [id number] , [place]. tel: [phone] [facility], [address], [place], [id number] , [place] tel: [phone] [facility] No Information 5 Mehbod Amir. [facility], [address], [place], [id number] , [place]. tel: [phone] Office/Outpa tient Visit,New, Mod [facility], [address], [place], [place], [address] , [place] tel: [phone] [facility] back and leg pain (chief complaint) Backache, unspecifiedOVERWE IGHT 5-201 5 Mehbod Amir. [facility], [address], [place], [place], [address] , [place]. tel: [phone] Family History Family Member Type Diagnosis Age At Onset No Information Payers Payer name Insurance type Covered constitution party [place] [id number] [id number] Social History Type Description Quantity Date Captured Comments Sex Female Smoking Status No Information Chief Complaint And Reason For Visit No Information Reason For Referral Reason For Referral No Information Plan Of Treatment Date Type Action Status Future Order: Radiology Order F/ E Lumbar (F/ELumb), Ordered on: Ordered History Of Present Illness Encounter Date Complaint History Of Prese nt Illness No Information Functional Status Date Functional Assessmen t No Information Instructions Date Instruction Additional Infor jimmy Weight Management Related to Ove rweight Weight Management Related to Ove rweit Weight Management Related to Ove rweight Assessments Type Assessment Date No Information Patient Care Teams Name Effective Dates (start - stop) Status Members No Information
--- OUTSIDE RECORDS SUMMARY | 2023-12-02 16:28 | XMS_ITS | Continuity of Care Document ---
Author Organization [facility] Address [address] [address] [place] [address] Phone Care Team Providers Care Public Speaking Professor Name Role Phone Juan Ramírez MD Unavailable Unavailabl e Allergies, Adverse Reactions, Alerts Substance Reaction Status [...] Diagnoses Date Provider Providers Copied on Encounter [facility], [address] [address], [place], [place], [id number], [place] tel:[phone] [facility] No Information Dylan Martinez. [address] [facility], [facility] [address], [place], [place], [id number], [place]. tel:[phone] Office Cons New/estab Mod [facility], [address] [address], [place], [place], [address], tel:[phone] [facility] Symptoms or Concerns (chief complaint) Intractable nausea and vomitingDiarr hea, unspecified typePain of upper abdomen Jareth Vega. [address] [facility], [facility] [address], [place], [place], [id number], [place]. tel:[phone] Referring Provider: Brendan Glover, [address], [place], [address]. tel:[phone] [facility], [address] [address], [place], [place], [id number], [place] tel:[phone] [facility] No Information Dylan Martinez. [address] [facility], [address], [place], [place], [address], [place]. tel:[phone] Family History Family Member Type Diagnosis Age [...] and acellular pertussis vaccine, adsorbed administered Note: Package ConciergeIC b i-directional interface ; Source: Other Registry [...] Registry Payers Payer name Insurance type Covered democrat ID Authoriza tion(s) No Information Social History Type Description Quantity Date Captured Comments Sex Female Smoking Status No Information Chief Complaint And Reason For Visit No Information Reason For Referral Reason For Referral No Information Plan Of Treatment Date Type Action Status Referral Ordered: CT Enterography With Contrast Per Radiology Appointment date/timeframe: 03/31/2022 ordered Referral Ordered: 5-HIAA,Quant.,24 Hr Urine Appointment date/timeframe: 08/24/2022 ordered Referral Ordered: CT Brain/Head WITHOUT And WITH Contrast Appointment date/timeframe: 03/29/2022 ordered Referral Ordered: Porphyrins,24-Hr Urine Appointment date/timeframe: 08/24/2022 ordered Referral Ordered: Porphobilinogen, Urine Appointment date/timeframe: 08/24/2022 ordered History Of Present Illness Encounter Date [...] the patient. She lost her job at [employer] after working there for many years, because she was missing so much work. Patient has been following with Dr. Regalado at [facility]. I do not have complete [...] and fecal elastase. She was referred to [facility] for further evaluation. She also tells [...]
--- OUTSIDE RECORDS SUMMARY | 2023-12-02 16:28 | XMS_ITS | Clinical Summary ---
Author Organization [facility] Address [address] [place] [address] Care Team Providers Care Concrete Block Layer Name Role Phone No Ref-Primary, Physician Primary [...] (once per calendar year) 2023 COVID-19 Vaccine ( - 2023-2 5 season) 2023 INFLUENZA VACCINE (#1) 2023 DTAP/TDAP/TD IMMUNIZATION (3 - Td or Tdap) 04/25/2029 04/25/2019, 08/07/2008 RSV VACCINE (1 - 1-dose 75+ series) 11/07/2043 ZOSTER IMMUNIZATION Completed 04/14/2021, 02/09/2021 HPV IMMUNIZATION [...] age to complete this topic Care Teams Concrete Block Layer Relationship Specialty Start Date End Date No Ref-Primary, Physician PCP - General 04/05/22
--- OUTSIDE RECORDS SUMMARY | 2023-12-02 16:28 | XMS_ITS | Referral Summary ---
Author Organization [facility] Address [address] [place] [address] Care Team Providers Care Professor Of English Name Role Phone No Ref-Primary, Physician Primary [...] of Treatment Not on file Care Teams Professor Of English Relationship Specialty Start Date End Date No Ref-Primary, Physician PCP - General 04/05/22
[2023-12-02 16:30] VITALS: BP 129/78; PULSE 110; RESP 18; TEMP 37.6; O2SAT 97; BMI 35.5
--- NOTE | 2023-12-02 16:48 | ED_ITS ---
HPI - General Adult General Chief complaint: Nausea/Vomiting Stated complaint: Infection Time Seen by Provider: 12/02/23 16:29 Source: patient Mode of arrival: ambulatory Limitations: no limitations History of Present Illness HPI narrative: 53-year-old female presenting today with vomiting x1 today. Patient states that she was in the ER approximately 2 weeks ago and at that time had a grand mal seizure. She required intubation and was transferred. She states that she was in the hospital for 3 days and was diagnosed with posterior reversible encephalopathy syndrome. She states that ever since then she has not been feeling well. She feels weak and tired all the time. Today she vomited x1 and this is how all her symptoms started last time so she presents to the ER for evaluation. She states that today she has been able to drink water but has not eaten anything is nothing sounds good. States that for the last 2 weeks she has been eating and drinking normally. She states that for the last 6 years she has had diarrhea, continues to have diarrhea and is currently undergoing workup for this. She has stool samples currently out with her primary care team, waiting culture results on that. She also has a 24 hour urine test results that she is waiting for. She also has had a chronic headache for quite some time, this continues today and it is not worse than usual. She denies any changes in her vision or hearing. No changes in her speech, no focal neurologic deficits or increased weakness of any of the extremities. Daughter is here with her has not noticed any altered mental status. She denies fevers or chills today. No chest or abdominal pain. Patient does have a chronic rash on her abdomen which is unchanged. In general she has felt a shift in how she has been feeling, feeling worse in the last 24 hours. Related Data Home Medications ?Medication ?Instructions ?Recorded ?Confirmed losartan 50 mg tablet 50 mg PO DAILY 09/17/21 12/02/23 omeprazole 40 mg capsule,delayed 40 mg PO DAILY 09/17/21 12/02/23 release venlafaxine 150 mg 225 mg PO DAILY 09/17/21 12/02/23 capsule,extended release 24 hr atorvastatin 40 mg tablet 40 mg PO QPM 11/20/23 11/20/23 gabapentin 100 mg capsule 300 mg PO QPM 11/20/23 12/02/23 gabapentin 300 mg capsule 300 mg PO QPM 11/20/23 11/20/23 triamcinolone acetonide 0.1 % topical 3XD 11/20/23 topical ointment albuterol 90 mcg/actuation aerosol mcg inhalation 12/02/23 inhaler atorvastatin 20 mg tablet 20 mg PO QPM 12/02/23 12/02/23 cholecalciferol (vitamin D3) 50 50 mcg PO DAILY 12/02/23 12/02/23 mcg (2,000 unit) capsule epinephrine 0.3 mg/0.3 mL 0.3 ml IM Q5-15M PRN 12/02/23 12/02/23 injection, auto-injector (EpiPen) levetiracetam 1,000 mg tablet 1,000 mg PO BID 12/02/23 12/02/23 Previous Rx's ?Medication ?Instructions ?Recorded nirmatrelvir 300 mg (150 mg See Rx Instructions PO .COMPLEX 12/02/23 x2)-ritonavir 100 mg tablet,dose #30 ea pack (Paxlovid) Allergies Allergy/AdvReac Type Severity Reaction Status Date / Time bee pollen Allergy Severe Anaphylaxis Verified 11/20/23 11:38 Penicillins Allergy Intermediate Hives Verified 11/20/23 11:38 morphine AdvReac Intermediate Migraine Verified 11/20/23 11:38 ondansetron [From Zofran] AdvReac Intermediate Migraine Verified 11/20/23 11:38 Review of Systems Status of ROS: Reports: 10 or more systems reviewed and unremarkable except as noted in History and below [facility] Medical History Obesity ?E66.9 - Obesity, unspecified (ICD-10) Lumbar facet arthropathy ?M47.816 - Spondylosis without myelopathy or radiculopathy, lumbar region (ICD-10) Nicotine dependence ?F17.200 - Nicotine dependence, unspecified, uncomplicated (ICD-10) Migraine ?G43.909 - Migraine, unspecified, not intractable, without status migrainosus (ICD-10) Displacement of lumbar intervertebral disc ?M51.26 - Other intervertebral disc displacement, lumbar region (ICD-10) Degeneration of lumbar or lumbosacral intervertebral disc ?M51.37 - Other intervertebral disc degeneration, lumbosacral region (ICD-10) Asthma ?J45.909 - Unspecified asthma, uncomplicated (ICD-10) Hypertension ?I10 - Essential (primary) hypertension (ICD-10) Chronic GERD ?K21.9 - Gastro-esophageal reflux disease without esophagitis (ICD-10) Social History Smoking Status: Current every day smoker What tobacco products do you use: cigarettes Smoking packs per day: 1 Smoking cigarettes per day: 20.0 Do you use any of these nicotine containing products: None Second hand tobacco smoke exposure: No How often do you have a drink containing alcohol: monthly or less How often do you have six or more drinks on one occasion: Never AUDIT-C Alcohol total score: 1 Non-prescribed substance use: marijuana (any form) service: No Exam Narrative: Exam Narrative: Well-nourished well-developed patient in no acute distress. Wearing dark glasses. Alert and oriented x3. Answers questions appropriately. Mood and affect are appropriate. Thoughts are goal oriented and rational. No tangential or magical thinking noted. Patient speaks in full sentences without needing to catch her breath. Speech is not slurred or pressured. Normal facial symmetry. HEENT: Normocephalic atraumatic. Pupils are equally round reactive to light. Extraocular muscles are intact. Conjunctivae are moist without any icterus noted. Slightly dry mucous membranes. Posterior pharynx is normal. Neck is soft without any lymphadenopathy or thyromegaly. Cardiovascular: Heart is regular rate and rhythm S1 and S2 are present without any murmurs. Lungs: Clear to auscultation bilaterally no wheezes rhonchi or rales are appreciated. Patient takes deep breaths without any discomfort. Abdomen: Soft and nontender nondistended with normal bowel sounds. No guarding or rebound. No masses or organomegaly appreciated. Extremities: Bilateral lower extremities are without edema. Normal DP and PT pulses. Skin: Well perfused . She has a well-demarcated rash on the anterior abdomen that again, she states has been there for a long time and she has been worked up for it. Const: Vital Signs, click to edit/add: Vital Signs - 24 hr 12/02/23 16:30 12/02/23 18:29 Temperature 99.7 F H Pulse Rate [Right Pulse Oximeter] 110 H 94 Respiratory Rate 18 18 Blood Pressure [Ri ght Upper Arm] 129/78 147/80 H Pulse Oximetry 97 97 Oxygen Delivery Me thod Room Air Room Air Course Course ED Course: IV is established and patient received a L of normal saline. EKG, read by me, shows normal sinus rhythm with a pulse of 99. Patient states that neither Zofran nor Reglan work for her so we opted not to do any antiemetics at this time as Compazine and Phenergan should be avoided in seizure disorder. Of note, I do not have the capability of doing an MRI today. Her blood pressure is currently well controlled. Blood work was drawn: CBCs unremarkable. UA is unremarkable. Normal lactate. Chemistries are unremarkable. Normal LFTs. Normal magnesium. Normal CRP. Normal TSH. Patient is positive for COVID-19. I looked over recommendations for Paxlovid use and there is no contraindications for seizure disorder. The only medication interaction would be her atorvastatin. Of note, pulse did come down after IV fluids. Vital Signs Vital signs: Initial Vital Signs Temperature 99.7 F H 12/02/23 16:30 Temperature Source Temporal Artery Scan 12/02/23 16:30 Pulse Rate 110 H 12/02/23 16:30 Pulse Rhythm Regular 12/02/23 16:30 Pulse Strength 3+ Normal 12/02/23 16:30 Respiratory Rate 18 12/02/23 16:30 Blood Pressure 129/78 12/02/23 16:30 Blood Pressure Mean 95 12/02/23 16:30 Pulse Oximetry 97 12/02/23 16:30 Oxygen Delivery Method Room Air 12/02/23 16:30 Vital Signs Temperature 99.7 F H 12/02/23 16:30 Pulse Rate 110 H 12/02/23 16:30 Respiratory Rate 18 12/02/23 16:30 Blood Pressure 129/78 12/02/23 16:30 Pulse Oximetry 97 12/02/23 16:30 Oxygen Delivery Method Room Air 12/02/23 16:30 Temperature 99.7 F H 12/02/23 16:30 Pulse Rate 94 12/02/23 18:29 Respiratory Rate 18 12/02/23 18:29 Blood Pressure 147/80 H 12/02/23 18:29 Pulse Oximetry 97 12/02/23 18:29 Oxygen Delivery Method Room Air 12/02/23 18:29 Medications Administered Medications: Discontinued Medications Generic Name Dose Route Start Last Admin Trade Name Freq PRN Reason Stop Dose Admin Sodium Chloride 1,000 mls @ 1,000 mls/hr 12/02/23 17:00 12/02/23 17:15 0.9 % Sodium Chloride 1000 Ml IV 12/02/23 17:59 1,000 mls/hr .Q1H LEATHA Administration Medical Decision Making MDM Narrative Medical decision making narrative: 53-year-old female with COVID-19. Recommend PACs elevated at this time. Will stop atorvastatin. Looked over all of her other medications including the levetiracetam and there does not appear to be any significant interactions. We discussed symptomatic treatment and reasons to return to the ER. Lab Data Lab results reviewed: Yes I reviewed the patient's lab results Labs: Lab Results 12/02/23 12/02/23 12/02/23 Range/Units 16:49 16:52 17:13 WBC 6.93 (4.50-11.00) K/uL RBC 3.82 L (4.00-5.20) m/uL Hgb 11.9 L (12.0-16.0) gm/dL Hct 35.6 (33.0-51.0) % MCV 93 (80-100) fL MCH 31 (26-34) pg MCHC 33 (32-36) gm/dL RDW Coeff of Tracee 13.6 (11.5-15.5) % Plt Count 257 (140-440) K/uL Neut % (Auto) 88.6 H (42.0-72.0) % Lymph % (Auto) 4.3 L (20-44) % [place] % (Auto) 6.9 (0.0-11.0) % Eos % (Auto) 0.0 (0.0-7.0) % Baso % (Auto) 0.1 (0.0-3.0) % Neut # (Auto) 6.10 (1.7-7.0) K/uL Lymph # (Auto) 0.30 L (0.90-2.90) K/uL [place] # (Auto) 0.50 (0.00-0.90) K/UL Eos # (Auto) 0.00 (0.00-0.50) K/uL Baso # (Auto) 0.01 (0.00-0.30) K/uL Abs Immat Gran (auto) 0.01 (0.00-0.30) K/uL Imm/Tot Granulo (auto) 0.1 % ESR 18 (2-20) mm/hr Sodium 138 (135-149) mmol/L Potassium 3.5 L (3.6-5.1) mmol/L Chloride 105 (96-114) mmol/L Carbon Dioxide 24 (20-32) mmol/L Anion Gap 9 (7-15) mEq/L BUN 9 (7-30) mg/dL Creatinine 0.8 (0.5-1.5) mg/dL Estimated Creat Clear 74.38 Estimated GFR 87 ml/min Glucose 91 (60-115) mg/dL Lactate 1.2 (0.5-1.9) mmol/L Calcium 9.2 (8.4-10.6) mg/dL Magnesium 1.7 (1.5-2.6) mg/dL Total Bilirubin 0.2 (0.1-1.5) mg/dL Direct Bilirubin 0.1 (0.0-0.5) mg/dL AST 27 (12-35) U/L ALT 20 (4-35) U/L Alkaline Phosphatase 86 (40-150) U/L Troponin I < 0.01 L (0.01-0.04) ng/mL C-Reactive Protein 1.0 (0.5-1.0) mg/dL Total Protein 6.8 (6.0-8.3) g/dL Albumin 4.2 (3.3-5.0) g/dL TSH 1.130 (0.270-4.20) uIU/mL Urine Color Yellow (Yellow) Urine Appearance Slightly Cloudy A (Clear) Urine pH 6.5 (5.0-8.5) Ur Specific [place] <= 1.005 (1.000-1.030) Urine Protein Negative (Negative) Urine Glucose (UA) Negative (Negative) Urine Ketones Negative (Negative) Urine Blood Negative (Negative) Urine Nitrite Negative (Negative) Urine Bilirubin Negative (Negative) Urine Urobilinogen 0.2 (0.2-1.0) Ur Leukocyte Esterase Negative (Negative) Urine RBC 0-2 (0-2) Urine WBC 0-2 (0-5) Ur Squamous Epith Cells None (None-Few) Urine Bacteria None (None) SARS-CoV-2 (PCR) POSITIVE SARS-CoV-2 A (Negative) Monoscreen Negative (Negative) Influenza Type A (PCR) Negative PCR FLU A (Negative) Influenza Type B (PCR) Negative PCR FLU B (Negative) ECG Data Attestation: I personally reviewed and interpreted this ECG as follows: Discharge Plan Discharge Clinical Impression: COVID-19 Patient Disposition: Home, Self-Care Condition: Stable Additional Instructions: You will be started on Paxlovid - this is the medication that treat COVID-19. It does interact with your atorvastatin, you should stop this on the same day that you start taking Paxlovid and restart it 3 days after your last dose of Paxlovid. You should start your Paxlovid tomorrow. In the event that it is too expensive or your pharmacy does not have it - is okay not to take it. You do need to make sure that you are staying well hydrated by drinking plenty of fluids throughout the day including soups. Okay to take ibuprofen or Tylenol as needed/as instructed for discomfort, achiness or fevers. Return to the ER if you have difficulty breathing, cannot keep down any liquids or have other concerning symptoms. Prescriptions: New Paxlovid 300 mg (150 mg x 2)-100 mg tablets,dose pack See Rx Instructions .ROUTE .COMPLEX Qty: 30 0RF Rx Instructions: take TWO 150 mg tablets of nirmatrelvir with ONE 100 mg tablet of ritonavir twice daily for 5 days No Action losartan 50 mg tablet 50 mg PO DAILY Patient Comments: TAKE ONE TABLET BY MOUTH EVERY DAY venlafaxine 150 mg capsule,extended release 24hr 225 mg PO DAILY Patient Comments: TAKE ONE CAPSULE BY MOUTH EVERY DAY ALONG WITH 75MG CAPSULE WITH THE EVENING MEAL. omeprazole 40 mg capsule,delayed release(DR/EC) 40 mg PO DAILY Patient Comments: TAKE ONE CAPSULE BY MOUTH EVERY DAY BEFORE A MEAL atorvastatin 20 mg tablet 20 mg PO QPM levetiracetam 1,000 mg tablet 1,000 mg PO BID albuterol 90 mcg/actuation aerosol inhalation cholecalciferol (vitamin D3) 50 mcg (2,000 unit) capsule 50 mcg PO DAILY epinephrine [EpiPen] 0.3 mg/0.3 mL auto-injector 0.3 ml IM Q5-15M PRN Rx Instructions: do not exceed 3 doses per episode atorvastatin 40 mg tablet 40 mg PO QPM triamcinolone acetonide 0.1 % ointment topical 3XD gabapentin 300 mg capsule 300 mg PO QPM gabapentin 100 mg capsule 300 mg PO QPM Follow Up/Referrals: Shawna Dominguez MD [Primary Care Provider] - Stand Alone Forms: Boardvote Info Instructions
[2023-12-02 16:54] LABS: Appearance Urine Slightly Cloudy (Clear); Bilirubin Urine Negative (Negative); Blood Urine Negative (Negative); Color Urine Yellow (Yellow); Glucose Urine Negative (Negative); Ketones Urine Negative (Negative); Leukocyte Esterase Urine Negative (Negative); Nitrite Urine Negative (Negative); Protein Urine Negative (Negative); Specific Gravity Urine <= 1.005 (1.000-1.030); Urobilinogen Urine 0.2 (0.2-1.0); pH Urine 6.5 (5.0-8.5)
[2023-12-02 17:06] LABS: RBC Urine 0-2 (0-2); WBC Urine 0-2 (0-5)
[2023-12-02] MEDS: 0.9 % SODIUM CHLORIDE 1000 ml 1,000 ML IV (17:15)
[2023-12-02 17:20] LABS: Basophils Absolute Auto 0.01 K/uL (0.00-0.30); Basophils Percent Auto 0.1 % (0.0-3.0); Hematocrit 35.6 % (33.0-51.0); Hemoglobin* 11.9 gm/dL (12.0-16.0); Immature Granulocytes Abs Auto 0.01 K/uL (0.00-0.30); Immature Granulocytes Pct Auto 0.1 %; Lactate* 1.2 mmol/L (0.5-1.9); Lymphocytes Percent Auto 4.3 % (20-44); Mean Corpuscular HGB Conc 33 gm/dL (32-36); Mean Corpuscular Hemoglobin 31 pg (26-34); Mean Corpuscular Volume 93 fL (80-100); Monocytes Percent Auto 6.9 % (0.0-11.0); Neutrophils Percent Auto 88.6 % (42.0-72.0); Platelet Count* 257 K/uL (140-440); RDW Coefficient of Variation % 13.6 % (11.5-15.5); Red Blood Count 3.82 m/uL (4.00-5.20); White Blood Count* 6.93 K/uL (4.50-11.00)
[2023-12-02 17:21] LABS: Slide Review Reflex No
--- OUTSIDE RECORDS SUMMARY | 2023-12-02 17:22 | XMS_ITS | Continuity of Care Document ---
Author Organization [facility] Address [address] [address] [place] [address] Phone Care Team Providers Care [employer] Name Role Phone Juan Ramírez MD Unavailable [...] Diagnoses Date Provider Providers Copied on Encounter [facility], [address] [address], [place], [place], [id number], [place] tel:[phone] [facility] No Information Dylan Martinez. [address] [facility], [facility] [address], [place], [place], [id number], [place]. tel:[phone] Office Cons New/estab Mod [facility], [address] [address], [place], [place], [id number], tel:[phone] [facility] GI Symptoms or Concerns (chief complaint) Intractable nausea and vomitingDiarr hea, unspecified typePain of upper abdomen Jareth Vega. [address] [facility], [facility] [address], [place], [place], [address], [place]. tel:[phone] Referring Provider: Brendan Glover, [address], [place], [address]. tel:[phone] [facility], [address] [address], [place], [place], [id number], [place] tel:[phone] [facility] No Information Dylan Martinez. [address] [facility], [place], [place], [id number], [place]. tel:[phone] Family History Family Member Type Diagnosis Age [...] and acellular pertussis vaccine, adsorbed administered Note: [employer] b i-directional interface ; Source: Other Registry [...] Registry Payers Payer name Insurance type Covered republican ID Authoriza tion(s) No Information Social History [...] nt Illness GI Symptoms or Concerns This arile rodriguez is a pleasant 51-year-old female who [...] the patient. She lost her job at [employer] after working there for many years, because she was missing so much work. Patient has been following with Dr. Regalado at [facility]. I do not have complete records, but [...] and fecal elastase. She was referred to [facility] for further evaluation. She also tells [...]
--- OUTSIDE RECORDS SUMMARY | 2023-12-02 17:22 | XMS_ITS | Clinical Summary ---
Author Organization [facility] Address [address] [place] [address] Care Team Providers Care Shingle She[employer] Machine Operator Name Role Phone No Ref-Primary, Physician Primary [...] age to complete this topic Care Teams [employer] Machine Operator Relationship Specialty Start Date End Date No Ref-Primary, Physician PCP - General 04/05/22
--- OUTSIDE RECORDS SUMMARY | 2023-12-02 17:22 | XMS_ITS | Continuity of Care Document ---
Author Organization [facility] Address [address] [place] [address] Phone Care Team Providers Care Spout Positioner Name Role Phone Roberto Claros MD Unavailable [...] Assist Low Back Disk Surgery/Decompre ss Office/Outpatient Visit,[facility] 2014 X-Ray Exam Of Lower Spine, Bending Advance Directives Directive Yes / No Effective Date File Name No Information Encounters Encounter Description Practice Location Reason(s) For Visit Diagnoses Date Provider Providers Copied on Encounter [facility], [address], [place], [place], [id number] , [place] tel: [phone] [facility] No Information [address] [facility] [place], [address] [place] [address] [address], [place], [place], [address] , [place]. tel: [phone] [facility], [address], [place], [place], [address] , [place] tel: [phone] [facility] Lumbago [address] [facility], [address], [place], [id number] , [place]. tel: [phone] [facility], [address], [place], [place], [address] , [place] tel: [phone] [facility] OVERWEIGHTLumbar radiculopathyLumb ago 6-[address] [facility], [address], [place], [place], [address] , [place]. tel: [phone] [facility], [address], [place], [address] , [place] tel: [phone] [facility] OVERWEIGHTBackach e, unspecified [address] [facility], [address], [place], [place], [address] , [place]. tel: [phone] [facility], [address], [place], [place], [address] , [place] tel: [phone] [facility] No Information [address] [facility], [address], [place], [address] , [place]. tel: [phone] Office/Outpa tient Visit,New, Mod [facility], [address], [place], [place], [address] , [place] tel: [phone] [facility] back and leg pain (chief complaint) Backache, unspecifiedOVERWE IGHT 5-[address] [facility], [address], [place], [place], [address] , [place]. tel: [phone] Family History Family Member Type Diagnosis Age At Onset No Information Payers Payer name Insurance type Covered republican ID [place]beth [place]rera([id number] [place] [id number] Social History Type Description Quantity Date Captured [...]
--- OUTSIDE RECORDS SUMMARY | 2023-12-02 17:22 | XMS_ITS | Referral Summary ---
Author Organization [facility] Address [address] [place] [address] Care Team Providers Care Personal Service Representative Name Role Phone No Ref-Primary, Physician Primary [...] of Treatment Not on file Care Teams Personal Service Representative Relationship Specialty Start Date End Date No Ref-Primary, Physician PCP - General 04/05/22
--- OUTSIDE RECORDS SUMMARY | 2023-12-02 17:22 | XMS_ITS | Clinical Summary ---
Author Organization [employer] [facility] Address [place], [place] [address] Care Team Providers Care Fuller Brush Man Name Role Phone Shawna Dominguez MD Primary [...] meals. 112 Tablet 3 024 Discontinued( *Med complete/Layla men complete/Leve l of care change) losartan [...] cancer screening 03/11/19 23 Overview (03/11/2022): 1995: [place] 02/02/2022: NIL/HPV neg Plan: Pap and HPV [...] Description 12/02/2023 3:30 PM CDT Office Visit [facility] [address] [place] [id number] Vomiting 12/02/2023 Travel 11/30/2023 10:15 AM CDT Orders Only [facility] [address] [place] [address] Lab, [place] [facility] 11/28/2023 10:25 AM CDT Office Visit [facility] [address] [place] [address] Shawna Dominguez MD Hospital F/U 11/28/2023 Travel 11/25/2023 Travel 11/24/2023 Refill [facility] [address] [place] [address] Shawna Dominguez MD Refill Request 11/24/2023 Patient Outreach [facility] [address] [place] [address] Brooklynn Sauer, RN Primary RN Care Management; Hospital F/U (Lace 54) 11/23/2023 Telephone [facility] [address] [place] [address] Shawna Dominguez MD Appointment 11/22/2023 Travel 11/20/2023 12:04 PM CDT - 11/23/2023 12:23 PM CDT Hospital Encounter [facility] [address] [place] [address] Fernandez Hoff, DO Barrera, MD Osmani Edwards Love Ashvinkumar, MBBS Seizure (HC) (Primary Dx) Discharge Disposition: Home Self Care 11/20/2023 Orders Only [facility] Scanner 1 scan: (1-Ord) [facility], HEAD/BRAIN WO, 11/20/2023 11/20/2023 Orders Only [facility] Scanner 1 scan: [facility]1-Ord[facility], CT CHEST ABDOMEN PELV W CON, 11/20/2023 11/20/2023 Orders Only [facility] Scanner 1 scan: (1-Ord) [facility], XR CHEST 1V PORTABLE, 11/20/2023 11/08/2023 9:35 AM CDT Office Visit [facility] [address] [place] [address] Shawna Dominguez MD Derm Problem (Spots on [...] lymph n odes Heart Disease Maternal Grandmother [place] Cancer Mother b 194 [place] insid e cheek Hyperlipidemia Mother Hypertension Mother Cancer-prostate Paternal Grandfather Cancer Paternal Grandmother lung, k idney, female organs Heart Disease Paternal Grandmother [place] Cancer-breast No Family History Relation Name Status [...] Description 12/12/2023 2:30 PM CDT Ancillary Procedure [facility] [address] [place] [address] 12/12/2023 3:15 PM CDT Ancillary Procedure [facility] [address] [place] [address] Health Maintenance Due Date Last Done Comments [...] eruption COLONOSCOPY DIAGNOSTIC Routine 04/17/2023 12:00 AM BDR Hematochezia HPV HIGH RISK Routine 02/02/2022 1:51 PM BDR Cervical cancer screening XR MAMMO BILAT SCREEN FFDM (IA) Routine 10/01/2015 3:30 PM CDT Visit for screening mammogram from Last 3 Months or Most Recently Relevant to Health Maintenance Results * COMP METABOLIC PANEL (11/28/2023 10:57 AM CDT) Only the most recent of5 resultswithin the time period is included. GLUCOSE 99 65 - 99 mg/dL [employer] Comment: ? Fasting reference interval [...] AM CDT Shawna Dominguez MD CHEMISTRY [facility] [employer] [facility] [address] [place] [address], [place] [phone] [facility] [address] * GLUCOSE METER (11/23/2023 11:52 AM CDT) Only the most recent of8 resultswithin the time period is included. [facility] Signature GLUCOSE METER 84 65 - 100 mg/dL 11/23/2023 11:53 AM CDT [facility] Blood BLOOD SPECIMEN / Unknown 11/23/2023 11:52 AM CDT 11/23/2023 11:53 AM CDT Damaris WHITMAN CHEMISTRY [facility] [address] [place] [address], [place] * (ABNORMAL) PHOSPHORUS (11/23/2023 6:47 AM CDT) Only the most recent of4 resultswithin the time period is included. PHOSPHORUS 4.9(H) 2.5 - 4.5 mg/dL 11/23/2023 7:32 AM CDT [facility] Blood BLOOD SPECIMEN / Unknown Venipuncture / Unknown 11/23/2023 6:47 AM CDT 11/23/2023 6:54 AM CDT Machelle Rocha RN CHEMISTRY Performing Organization Address [facility]/ZIP Co de Phone Number [facility] [address] [place] [address], * MAGNESIUM (11/23/2023 6:47 AM CDT) Only the most recent of4 resultswithin the time period is included. MAGNESIUM 1.8 1.6 - 2.6 mg/dL 11/23/2023 7:32 AM CDT [facility] Blood BLOOD SPECIMEN / Unknown Venipuncture / Unknown 11/23/2023 6:47 AM CDT 11/23/2023 6:54 AM CDT Machelle Rocha RN CHEMISTRY Performing Organization Address [facility] Co de Phone Number [facility] [address] [place] [address], * [facility] IONIZED [facility] DRAW ONLY (11/23/2023 6:47 AM CDT) Only the most recent of3 resultswithin the time period is included. CALCIUM,IONIZE D 1.22 1.15 - 1.27 mmol/L 11/23/2023 6:58 AM CDT [facility] Blood BLOOD SPECIMEN / Unknown Venipuncture / Unknown 11/23/2023 6:47 AM CDT 11/23/2023 6:55 AM CDT Machelle Rocha RN CHEMISTRY [facility] [address] [place] [address], * CONTINUOUS VIDEO EEG MONITORING (11/22/2023 8:33 AM CDT) Narrative Elver Caro MD - 11/22/2023 8:33 AM CDT Elver Caro MD ? 11/22/2023 ??7:09 PM [facility], [address] [place], [place] ??[address] Ph: ??[phone] SPECIAL NEURODIAGNOSTIC PROCEDURE - ELECTROENCEPHALOGRAM - EEG Video EEG Report Patient Name: ??Michelle Restrepo : ?1970 Study Date: ?11/22/2023 Study Number: ?? [id number] VBA Duration: ? [id number], [id number] (16 Hours 56 Minutes) Admit Date: ?11/20/2023 [...] correlation is recommended. ?? Elver Caro MD [facility] This continuous video EEG study was completed from 11/20/2023 to 11/22/2023, with a total recording duration of 46 hours and 1 minute. Fernandez Hoff DO NEUROLOGY ORD * SCAN-CARDIAC STRIP (11/22/2023 8:00 AM CDT) Scanner OTHER * LEVETIRACETAM (KEPPRA) (11/22/2023 5:06 AM CDT) LEVETIRACETAM (KEPPRA) 21.5 6.0 - 46.0 ug/mL 11/22/2023 6:07 AM CDT [facility] Blood BLOOD SPECIMEN / Unknown Venipuncture / Unknown 11/22/2023 5:06 AM CDT 11/22/2023 5:33 AM CDT Narrative [facility] - 11/22/2023 6:07 AM CDT Reference Range is based on Trough Steady State in patients receiving recommended daily dose. ??The relationship between serum concentrations and toxicity is not known. Bivaracetam (Briviact??) interferes with measurements of levetiracetam (Keppra??) in the ARK Levetiracetam Assay Paige HERNANDEZ SEND OUTS [facility] [address] [place] [address], [place] * (ABNORMAL) CBC W PLT NO DIFF (11/22/2023 5:06 AM CDT) Only the most recent of2 resultswithin the time period is included. Pathologist [facility] WHITE BLOOD COUNT 8.4 4.5 - 11.0 thou/cu mm 11/22/2023 5:43 AM CDT [facility] RED BLOOD COUNT 3.67(L) 4.00 - 5.20 mil/cu mm 11/22/2023 5:43 AM CDT [facility] HEMOGLOBIN 11.3(L) 12.0 - 16.0 g/dL 11/22/2023 5:43 AM CDT [facility] HEMATOCRIT 34.1 33.0 - 51.0 % 11/22/2023 5:43 AM CDT [facility] MCV 93 80 - 100 fL 11/22/2023 5:43 AM CDT [facility] MCH 30.8 26.0 - 34.0 pg 11/22/2023 5:43 AM CDT [facility] MCHC 33.1 32.0 - 36.0 g/dL 11/22/2023 5:43 AM CDT [facility] RDW 14.2 11.5 - 15.5 % 11/22/2023 5:43 AM CDT [facility] PLATELET COUNT 280 140 - 440 thou/cu mm 11/22/2023 5:43 AM CDT [facility] MPV 10.9 6.5 - 11.0 fL 11/22/2023 5:43 AM CDT [facility] NRBC 0.0 % 11/22/2023 5:43 AM CDT [facility] ABS NRBC 0.0 thou /cu mm 11/22/2023 5:43 AM CDT [facility] Blood BLOOD SPECIMEN / Unknown Venipuncture / Unknown 11/22/2023 5:06 AM CDT 11/22/2023 5:33 AM CDT Liv HERANNDEZ HEMATOLOGY Performing Organization Address City/[facility]/ZIP Co de Phone Number [facility] [address] [place] [address], [place] * POTASSIUM (11/22/2023 5:06 AM CDT) Only the most recent of4 resultswithin the time period is included. POTASSIUM 4.0 3.5 - 5.1 mmol/L 11/22/2023 6:10 AM CDT [facility] Blood BLOOD SPECIMEN / Unknown Venipuncture / Unknown 11/22/2023 5:06 AM CDT 11/22/2023 5:32 AM CDT Jose WHITMAN CHEMISTRY Performing Organization Address [facility] Co ca Phone Number [facility] [address] [place] [address], [place] * LACTATE VENOUS (11/21/2023 6:28 PM CDT) Only the most recent of7 resultswithin the time period is included. LACTATE,VENOUS 1.0 0.5 - 2.0 mmol/L 11/21/2023 7:03 PM CDT [facility] Blood BLOOD SPECIMEN / Unknown Venipuncture / Unknown 11/21/2023 6:28 PM CDT 11/21/2023 6:34 PM CDT Fernandez Hoff DO CHEMISTRY Performing Organization Address [facility] Co de Phone Number [facility] [address] [place] [address], [place] * EXTRA TUBE ODEN (11/21/2023 6:25 PM CDT) Blood BLOOD SPECIMEN / Unknown Non-Lab Venipuncture / Unknown 11/21/2023 6:25 PM CDT 11/21/2023 6:36 PM CDT Isamar Barrera MD LABORATORY [facility] [address] [place] [address], [place] * MR ANGIO HEAD BRAIN WO [...] INDICATION: Cerebral vasospasm. Comparison MRI 11/20/2023. TECHNIQUE: [id number] MRA head. 3D reconstructed images. FINDINGS: Bilateral carotid siphons are patent. Patent [place] with diminutive right and patent left posterior communicating arteries. Visualized bilateral ANA and MCA circulations are patent with no high-grade stenosis, Doll coastal clinician, or aneurysm. No evidence of focal narrowing or stenoses of the visualized distal arterial branches. Bilateral PORTABLE MACHINE CUTTER circulations are patent with no high-grade stenosis [...] INDICATION: Cerebral vasospasm. Comparison MRI 11/20/2023. TECHNIQUE: [id number] MRA head. 3D reconstructed images. FINDINGS: Bilateral carotid siphons are patent. Patent [place] withdiminutive right and patent left posterior communicating arteries. Visualized bilateral ANA and MCA circulations are patent with nohigh-grade stenosis, Doll coastal clinician, or aneurysm. No evidence offocal narrowing or stenoses of the visualized distal arterial branches. Bilateral PORTABLE MACHINE CUTTER circulations are patent with no high-grade stenosis [...] TRIGLYCERIDES propofol (11/21/2023 5:08 AM CDT) Pathologist [facility] TRIGLYCERIDES 165(H) <150 mg/dL 11/21/2023 6:00 AM CDT [facility] PROVIDER ORDERED STATUS RANDOM 11/21/2023 6:00 AM CDT [facility] Blood BLOOD SPECIMEN / Unknown Venipuncture / Unknown 11/21/2023 5:08 AM CDT 11/21/2023 5:25 AM CDT Fernandez Hoff DO [facility]STRY [facility] [address] [place] [address], [place] * (ABNORMAL) CK TOTAL propofol (11/21/2023 5:08 AM CDT) Pathologist [facility] CK,TOTAL 613(H) 26 - 192 IU/L 11/21/2023 6:01 AM CDT [facility] Blood BLOOD SPECIMEN / Unknown Venipuncture / Unknown 11/21/2023 5:08 AM CDT 11/21/2023 5:25 AM CDT Fernandez Hoff DO CHEMISTRY [facility] [address] [place] [address], * MR BRAIN WO CONTRAST (11/20/2023 9:57 [...] - 35 IU/L 11/20/2023 6:08 PM CDT [facility] Blood BLOOD SPECIMEN / Unknown Venipuncture / Unknown 11/20/2023 5:31 PM CDT 11/20/2023 5:40 PM CDT Fernandez Hoff DO CHEMISTRY Performing Organization Address City/[facility]/ZIP Co de Phone Number [facility] [address] [place] [address], [place] * AST (SGOT) (11/20/2023 5:31 PM CDT) AST (SGOT) 33 10 - 35 IU/L 11/20/2023 6:08 PM CDT [facility] Blood BLOOD SPECIMEN / Unknown Venipuncture / Unknown 11/20/2023 5:31 PM CDT 11/20/2023 5:40 PM CDT Fernandez Hoff DO CHEMISTRY [facility] [address] [place] [address], [place] * (ABNORMAL) ALK PHOSPHATASE (11/20/2023 5:31 PM CDT) ALK PHOSPHATASE 112(H) 35 - 104 IU/L 11/20/2023 6:08 PM CDT [facility] Blood BLOOD SPECIMEN / Unknown Venipuncture / Unknown 11/20/2023 5:31 PM CDT 11/20/2023 5:40 PM CDT eFrnandez Hoff DO CHEMISTRY Performing Organization Address City/[facility]/ZIP Co de Phone Number [facility] [address] [place] [address], * LIPASE (11/20/2023 5:31 PM CDT) Pathologist [facility] LIPASE 13.1 13.0 - 60.0 IU/L 11/20/2023 6:08 PM CDT [facility] Blood BLOOD SPECIMEN / Unknown Venipuncture / Unknown 11/20/2023 5:31 PM CDT 11/20/2023 5:40 PM CDT Fernandez Hoff DO CHEMISTRY Performing Organization Address [facility] Co de Phone Number [facility] [address] [place] [address], * BILIRUBIN DIRECT (11/20/2023 5:31 PM CDT) Pathologist [facility] BILIRUBIN,DIRE CT <0.1 0.0 - 0.2 mg/dL 11/20/2023 6:10 PM CDT [facility] Blood BLOOD SPECIMEN / Unknown Venipuncture / Unknown 11/20/2023 5:31 PM CDT 11/20/2023 5:40 PM CDT Fernandez Hoff DO CHEMISTRY Performing Organization Address City/[facility] Co de Phone Number [facility] [address] [place] [address], * Blood Culture (11/20/2023 2:46 PM CDT) Only the most recent of2 resultswithin the time period is included. [facility] CULTURE No Growth. 11/25/2023 4:22 PM CDT [facility] Blood BLOOD SPECIMEN / Unknown IV Start / Unknown 11/20/2023 2:46 PM CDT 11/20/2023 2:52 PM CDT Narrative [facility] - 11/25/2023 4:22 PM CDT Low volume blood culture received; possible false negative culture. Fernandez Hoff DO MICROBIOLOGY Performing Organization Address [facility]/ZIP Co de Phone Number [facility] [address] [place] [address], * (ABNORMAL) Arterial Blood Gas (11/20/2023 1:51 PM CDT) PH, ARTERIAL 7.36 7.35 - 7.45 11/20/2023 2:03 PM CDT [facility] PCO2, ARTERIAL 42 32 - 45 mmHg 11/20/19 2:03 PM CDT [facility] PO2, ARTERIAL 84 83 - 108 mmHg 11/20/2023 2:03 PM CDT [facility] HCO3, ARTERIAL 24 21 - 28 mmol/L 11/20/2023 2:03 PM CDT [facility] BASE EXCESS, ARTERIAL -1.3 -2.0 - 3.0 11/20/2023 2:03 PM CDT [facility] O2 SATURATION, ARTERIAL 99(H) 94 - 98 % 11/20/2023 2:03 PM CDT [facility] INSPIRED O2 30 11/20/2023 2:03 PM CDT [facility] Comment:Unit of Measure: Lit ers (L) if <=20; Percent (%) if >20 PATIENT TEMPERATURE 36.7 Degrees C 11/20/2023 2:03 PM CDT [facility] Blood ARTERIAL BLOOD SPECIMEN / Unknown Non-Lab Venipuncture / Unknown 11/20/2023 1:51 PM CDT 11/20/2023 1:59 PM CDT Fernandez Hoff DO CHEMISTRY Performing Organization Address [facility]/ZIP Co de Phone Number [facility] [address] [place] [address], * (ABNORMAL) DRUG SCREEN RAPID URINE INHOUSE (11/20/2023 1:39 PM CDT) THC METABOLITES,MISHA L Non-negative , consider further testing if indicated(A) Not Detected 11/21/2023 1:48 AM CDT [facility] PCP,QUAL Not Detected Not Detected 11/21/2023 1:48 AM CDT [facility] COCAINE,QUAL Not Detected Not Detected 11/21/2023 1:48 AM CDT [facility] METHAMPHETAMINE , QUALITATIVE Not Detected Not Detected 11/21/2023 1:48 AM CDT [facility] OPIATES,QUAL Not Detected Not Detected 11/21/2023 1:48 AM CDT [facility] AMPHETAMINE, QUALITATIVE Not Detected Not Detected 11/21/2023 1:48 AM CDT [facility] BENZODIAZEPINES ,QUAL Non-negative , consider further testing if indicated(A) Not Detected 11/21/2023 1:48 AM CDT [facility] TRICYCLICS,QUAL Not Detected Not Detected 11/21/2023 1:48 AM CDT [facility] METHADONE, QUALITATIVE Not Detected Not Detected 11/21/2023 1:48 AM CDT [facility] BARBITURATES,QU AL Not Detected Not Detected 11/21/2023 1:48 AM CDT [facility] OXYCODONE, QUALITATIVE Not Detected Not Detected 11/21/2023 1:48 AM CDT [facility] BUPRENORPHINE, QUALITATIVE Not Detected Not Detected 11/21/2023 1:48 AM CDT [facility] Urine URINE SPECIMEN / Unknown Non-Blood / Unknown 11/20/2023 1:39 PM CDT 11/20/2023 1:46 PM CDT [facility] LABORATORY - 11/21/2023 1:48 AM CDT [...] confirmation. Jose WHITMAN URINE Performing Organization Address [facility] de Phone Number [facility] [address] [place] [address] * (ABNORMAL) URINALYSIS MICROSCOPIC (11/20/2023 1:39 PM CDT) RBC 0-2 0-2, None Seen /HPF 11/20/2023 2:46 PM CDT [facility] WBC 0-2 0-2, 3-5, None Seen /HPF 11/20/2023 2:46 PM CDT [facility] BACTERIA None Seen None Seen, Rare, Few Bacteria/ HPF 11/20/2023 2:46 PM CDT [facility] EPITHELIAL CELLS None Seen None Seen, Few Epi/HPF 11/20/2023 2:46 PM CDT [facility] HYALINE CASTS 0-2 0-2, 3-5 /LPF 11/20/2023 2:46 PM CDT [facility] URIC ACID CRYSTALS Present(A) (none) 11/20/2023 2:46 PM CDT [facility] Urine URINE SPECIMEN / Unknown Non-Blood / Unknown 11/20/2023 1:39 PM CDT 11/20/2023 1:46 PM CDT Fernandez Hoff DO URINE Performing Organization Address City/[facility] Co de Phone Number [facility] [address] [place] [address], [place] * (ABNORMAL) Urinalysis W Reflex Microscopic if Positive (11/20/2023 1:39 PM CDT) COLOR Yellow Yellow Color 11/20/2023 2:46 PM CDT [facility] CLARITY Turbid(A) Clear Clarity 11/20/2023 2:46 PM CDT [facility] SPECIFIC GRAVITY,URINE >=1.030(A) 1.010, 1.015, 1.020, 1.025 11/20/2023 2:46 PM CDT [facility] PH,URINE 6.5 6.0, 7.0, 8.0, 5.5, 6.5, 7.5, 8.5 11/20/2023 2:46 PM CDT [facility] UROBILINOGEN, QUALITATIVE Normal Normal EU/dl 11/20/2023 2:46 PM CDT [facility] PROTEIN, URINE Trace(A) Negative mg/dL 11/20/2023 2:46 PM CDT [facility] GLUCOSE, URINE Negative Negative mg/dL 11/20/2023 2:46 PM CDT [facility] KETONES,URINE Negative Negative mg/dL 11/20/2023 2:46 PM CDT [facility] BILIRUBIN,URI NE Negative Negative 11/20/2023 2:46 PM CDT [facility] OCCULT BLOOD,URINE Negative Negative 11/20/2023 2:46 PM CDT [facility] NITRITE Negative Negative 11/20/2023 2:46 PM CDT [facility] LEUKOCYTE ESTERASE Negative Negative 11/20/2023 2:46 PM CDT [facility] Urine URINE SPECIMEN / Unknown Non-Blood / Unknown 11/20/2023 1:39 PM CDT 11/20/2023 1:46 PM CDT Fernandez Hoff DO URINE [facility] [address] [place] [address], [place] * (ABNORMAL) CBC WITH AUTO DIFFERENTIAL (11/20/2023 12:54 PM CDT) WHITE BLOOD COUNT 21.7(H) 4.5 - 11.0 thou/cu mm 11/20/2023 1:10 PM CDT [facility] RED BLOOD COUNT 4.51 4.00 - 5.20 mil/cu mm 11/20/2023 1:10 PM CDT [facility] HEMOGLOBIN 14.0 12.0 - 16.0 g/dL 11/20/2023 1:10 PM CDT [facility] HEMATOCRIT 41.4 33.0 - 51.0 % 11/20/2023 1:10 PM CDT [facility] MCV 92 80 - 100 fL 11/20/2023 1:10 PM CDT [facility] MCH 31.0 26.0 - 34.0 pg 11/20/2023 1:10 PM CDT [facility] MCHC 33.8 32.0 - 36.0 g/dL 11/20/2023 1:10 PM CDT [facility] RDW 13.7 11.5 - 15.5 % 11/20/2023 1:10 PM CDT [facility] PLATELET COUNT 342 140 - 440 thou/cu mm 11/20/2023 1:10 PM CDT [facility] MPV 10.6 6.5 - 11.0 fL 11/20/2023 1:10 PM CDT [facility] NRBC 0.0 % 11/20/2023 1:10 PM CDT [facility] ABS NRBC 0.0 thou /cu mm 11/20/2023 1:10 PM CDT [facility] % NEUT 89.5 % 11/20/2023 1:10 PM CDT [facility] % LYMPH 4.3 % 11/20/2023 1:10 PM CDT [facility] % MONO 5.2 % 11/20/2023 1:10 PM CDT [facility] % EOS 0.0 % 11/20/2023 1:10 PM CDT [facility] % BASO 0.1 % 11/20/2023 1:10 PM CDT [facility] % IMMATURE GRAN (METAS,MYELOS,MA OS) 0.9 % 11/20/2023 1:10 PM CDT [facility] ABSOLUTE NEUTROPHILS 19.5(H) 1.7 - 7.0 thou/cu mm 11/20/2023 1:10 PM CDT [facility] ABSOLUTE LYMPHOCYTES 0.9 0.9 - 2.9 thou/cu mm 11/20/2023 1:10 PM CDT [facility] ABSOLUTE MONOCYTES 1.1(H) <0.9 thou/cu mm 11/20/2023 1:10 PM CDT [facility] ABSOLUTE EOSINOPHILS 0.0 <0.5 thou/cu mm 11/20/2023 1:10 PM CDT [facility] ABSOLUTE BASOPHILS 0.0 <0.3 thou/cu mm 11/20/2023 1:10 PM CDT [facility] ABSOLUTE IMMATURE GRANULOCYTES(MET ,MYELOS,PROS) 0.2 <0.3 thou/cu mm 11/20/2023 1:10 PM CDT [facility] Blood BLOOD SPECIMEN / Unknown Non-Lab Venipuncture / Unknown 11/20/2023 12:54 PM CDT 11/20/2023 1:04 PM CDT Fernandez Hoff DO HEMATOLOGY [facility] [address] [place] [address], * Protime - INR (11/20/2023 12:54 PM CDT) INR 1.1 <1.3 11/20/2023 1:12 PM CDT [facility] PROTIME 12.0 10.3 - 12.3 sec 11/20/2023 1:12 PM CDT [facility] Blood BLOOD SPECIMEN / Unknown Non-Lab Venipuncture / Unknown 11/20/2023 12:54 PM CDT 11/20/2023 1:04 PM CDT [facility] LABORATORY - 11/20/2023 1:12 PM CDT [...] is on UFH. Fernandez Hoff DO HEMATOLOGY [facility] [address] [place] [address], * Hepatic Function Panel (11/20/2023 12:54 PM CDT) Pathologist [facility] ALBUMIN 4.4 4.0 - 4.9 g/dL 11/20/2023 1:57 PM CDT [facility] TRAL LABORATORY PROTEIN,TOTAL 7.6 6.0 - 8.0 g/dL 11/20/2023 1:57 PM CDT [facility] TRA LABORATORY BILIRUBIN,TOTAL 0.2 0.0 - 1.2 mg/dL 11/20/2023 1:57 PM CDT [facility] BILIRUBIN,DIRECT 11/20/19 24 1:57 PM CDT [facility] TRAL LAB[facility] Comment:Canceled- Specimen H emolyzed, Disposition Per Policy BILIRUBIN,INDIRE CT 11/20/2023 1:57 PM CDT [facility] LAB[facility] Comment:Canceled- Specimen H emolyzed, Disposition Per Policy ALK PHOSPHATASE 1:57 PM CDT [facility] Comment:Canceled- Specimen H emolyzed, Disposition Per Policy ALT (SGPT) 11/20/2023 1:57 PM CDT [facility] Comment:Canceled- Specimen H emolyzed, Disposition Per Policy AST (SGOT) 11/20/2023 1:57 PM CDT [facility] Comment:Canceled- Specimen H emolyzed, Disposition Per Policy Blood BLOOD SPECIMEN / Unknown Non-Lab Venipuncture / Unknown 11/20/2023 12:54 PM CDT 11/20/2023 1:04 PM CDT Fernandez Hoff DO CHEMISTRY [facility] [address] [place] [address], * (ABNORMAL) Basic Metabolic Panel (11/20/2023 12:54 PM CDT) SODIUM 135(L) 136 - 145 mmol/L 11/20/2023 1:54 PM CDT [facility] LAB[facility] POTASSIUM 11/20/2023 1:54 PM CDT [facility] Comment:Canceled- Specimen H emolyzed, Disposition Per Policy CHLORIDE 104 98 - 107 mmol/L 11/20/2023 1:54 PM CDT [facility] CO2,TOTAL 16(L) 22 - 29 mmol/L 11/20/2023 1:54 PM CDT [facility] ANION GAP 15 5 - 18 11/20/2023 1:54 PM CDT [facility] GLUCOSE 131(H) 70 - 99 mg/dL 11/20/2023 1:54 PM CDT [facility] CALCIUM 9.1 8.6 - 10.0 mg/dL 11/20/2023 1:54 PM CDT [facility] BUN 12 6 - 20 mg/dL 11/20/2023 1:54 PM CDT [facility] CREATININE 0.81 0.50 - 0.90 mg/dL 11/20/2023 1:54 PM CDT [facility] BUN/CREAT RATIO 15 10 - 20 4 1:54 PM CDT [facility] eGFR 86(L) >90 mL/min/1.7 3m2 11/20/2023 1:54 PM CDT [facility] Comment:As of 2021, [...] 1:04 PM CDT Fernandez Hoff DO [facility] [address] [place] [address], [place] * XR CHEST 1 VIEW PORTABLE [...] @ Nov 20 2023 ??3:11PM (Electronically Signed) [email or web address] Procedure Note Juarez Hardy MD - 11/20/2023 [...] @ Nov 20 2023 3:11PM (Electronically Signed) [email or web address] Fernandez Hoff DO GENERAL IMAGIN G * SCAN-RADIOLOGY REPORT (11/20/2023 12:00 AM CDT) Anatomical Region Laterality Modality Other Scanner OTHER * SCAN-CT INTERPRETATION (11/20/2023 12:00 AM CDT) Only the most recent of2 resultswithin the time period is included. Anatomical Region Laterality Modality Other Scanner OTHER * [employer] MISCELLANEOUS SENDOUT (11/08/2023 10:34 AM CDT) [facility] MISCELLANEOUS SEND OUT COMMENT 11/15/2023 5:08 PM CDT [facility] ([facility]) Comment: Test Ordered: [id number] Porphobilinogen, Qn, Random Ur Test(s) [id number], Qn, Random Ur was developed and its performance characteristics determined by [employer]. It has not been cleared or approved by the Food and Drug Administration. Porphobilinogen, Qn, Random Ur 0.5 ?mg/L ? 01 ? Reference Range: 0.0-2.0 ? Other (Other) Non-Blood / Unknown 11/08/2023 10:34 AM CDT 11/08/2023 10:35 AM CDT Narrative [facility]) - 11/15/2023 5:08 PM CDT Performed At: 01 [facility] [address] [place], [place] [id number] Bryan Yepez MD Ph:[phone] Performed At: [address] [id number] Ashli Kruse MD Ph:[phone] Shawna Dominguez MD LABORATORY [facility] ([facility]) [address] [place] [address] * (ABNORMAL) LIPID PANEL W REFLEX MEASURED LDL (11/08/2023 10:34 AM CDT) CHOLESTEROL,TOTAL 179 100 - 199 mg/dL 11/08/2023 4:37 PM CDT [facility] TRAL LABORAT[facility] Comment: Cholesterol, Total Reference Ranges Desirable <200 mg/dL Borderline 200-239 mg/dL High >=240 mg/dL TRIGLYCERIDES 157(H) <150 mg/dL 11/08/2023 4:37 PM CDT [facility] LAB[facility] HDL CHOLESTEROL 46 >40 mg/dL 4:37 PM CDT [facility] LAB[facility] NON-HDL CHOLESTEROL 133 <145 mg/dl 11/08/2023 4:37 PM CDT [facility] LAB[facility] CHOL/HDL RATIO 3.89 <4.50 11/08/2023 4:37 PM CDT [facility] LAB[facility] LDL CHOLESTEROL 102 <=130 mg/dL 11/08/2023 4:37 PM CDT [facility] VLDL CHOLESTEROL 31(H) <=30 mg/dL 11/08/2023 4:37 PM CDT [facility] TRAL LABOR[facility] PROVIDER ORDERED STATUS RANDOM 11/08/2023 4:37 PM CDT [facility] TRA LAB[facility] Blood BLOOD SPECIMEN / Unknown Venipuncture / Unknown 11/08/2023 10:34 AM CDT 11/08/2023 10:35 AM CDT Shawna Dominguez MD CHEMISTRY Performing Organization Address City/[facility]/ZIP Co de Phone Number [facility] [address] [place] [address], [place] * MISCELLANEOUS SEND OUT (11/08/2023 10:34 AM CDT) TEST NAME Porphobilinogen, quantitative, random urine 11/09/2023 11:21 AM CDT [facility]- NTRAL LABORATORY SOURCE urine 11/09/2023 11:21 AM CDT [facility] PERFORMING LAB [facility] 11/09/2023 11:21 AM CDT [facility] REFERR[facility] LAB TEST # [id number] 11/09/2023 11:21 AM CDT [facility] IS THIS A [facility] TEST? Yes, See [facility] Miscellaneous Sendout result 11/09/2023 11:21 AM CDT [facility] Other (Other) Non-Blood / Unknown 11/08/2023 10:34 AM CDT 11/08/2023 10:35 AM CDT Shawna Dominguez MD SEND OUTS Performing Organization Address City/[facility]/ZIP Co de Phone Number [facility] [address] [place] [address], [place] * LEEANNE PREP,SKIN,HAIR,NAIL (11/08/2023 9:57 AM CDT) OBSERVATION No fungal elements seen 11/08/2023 10:11 AM CDT [facility] Other SPECIMEN FROM SKIN OBTAINED BY SCRAPING / Unknown Non-Blood / Unknown 11/08/2023 9:57 AM CDT 11/08/2023 9:59 AM CDT Shawna Dominguez MD MICROBIOLOGY Performing Organization Address City/[facility]/ZIP Co de Phone Number [facility] [address] [place] [address], [place] [phone] * COLONOSCOPY DIAGNOSTIC (04/17/2023 12:00 AM BDR) Shawna Dominguez MD GI PROCEDURE ORD * HPV HIGH RISK (02/02/2022 1:51 PM BDR) TYPE 16 Negative Negative 02/07/2022 11:11 AM BDR [facility] [facility] LAB[facility]AT[facility] TYPE 18 Negative Negative 02/07/2022 11:11 AM BDR [facility] TRAL LABORATORY OTHER HIGH RISK TYPES Negative Negative 02/07/2022 11:11 AM BDR [facility] TRAL LABORATORY Other (Cervical/Vagina l) Non-Blood / Unknown 02/02/2022 1:51 PM BDR 02/03/2022 2:53 PM BDR Narrative [facility]-CENTRAL LABORATORY - 02/07/2022 11:11 AM BDR HPV types 16, 18, 31, 33, 35, 39, 45, 51, 52, 56, 58, 59, 66 and 68 DNA were undetectable or below the pre-set threshold. Methodology: Rosaline Bhavin 4800 HPV Test Bony Little MD MICROBIOLOGY Performing Organization Address City/[facility]/ZIP Co de Phone Number [facility] [address] [place] [address], [place] * XR MAMMO BILAT SCREEN FFDM [...] of Computer-Aided Detection. COMPARISON FILMS: Yes 05/13/11 [facility] 12/23/09 [facility] FINDINGS: ??Mammographically, the breast tissue has scattered [...] 8:40 AM 04/01/2014 4:00 PM Care Teams Fuller Brush Man Relationship Specialty Start Date End Date Shawna Dominguez MD [address] [place] [address] PCP - General Family Practice 07/06/22
--- OUTSIDE RECORDS SUMMARY | 2023-12-02 17:23 | XMS_ITS | Continuity of Care Document ---
Author Organization [facility] Address [address] [place] [address] Phone Care Team Providers Care Malariologist Name Role Phone Roberto Claros MD Unavailable Unavailable Allergies, Adverse Reactions, Alerts Substance Reaction Status Criticality Penicillins Active No Information Medications Medication Instructions Dosage Effective Dates (start - stop) Status Comments LANSOPRAZOLE (unknown strength) Not Available - Active NABUMETONE (unknown strength) Not Available - Active Procedures Procedure Date Postop Followup Visit Postop Followup Visit Postop Followup Visit Low Back Disk Surgery/Decompress 2014 Pa Assist Low Back Disk Surgery/Decompre ss Office/Outpatient Visit,[facility] 2014 X-Ray Exam Of Lower Spine, Bending Advance Directives Directive Yes / No Effective Date File Name No Information Encounters Encounter Description Practice Location Reason(s) For Visit Diagnoses Date Provider Providers Copied on Encounter [facility], [address], [place], [place], [id number] , [place] tel: [phone] [facility] No Information 6 Mehbod Amir. [facility], [address] [place] [address] [address], [place], [place], [id number] , [place]. tel: [phone] [facility], [address], [place], [place], [id number] , [place] tel: [phone] [facility] Lumbago 0 5 Mehbod Amir. [facility], [address], [place], [id number] , [place]. tel: [phone] [facility], [address], [place], [id number] , [place] tel: [phone] [facility] OVERWEIGHTLumbar radiculopathyLumb ago 6-201 5 Mehbod Amir. [facility], [address], [place], [id number] , [place]. tel: [phone] [facility], [address], [place], [address] , [place] tel: [phone] [facility] OVERWEIGHTBackach e, unspecified 3 5 Mehbod Amir. [facility], [address], [place], [place], [id number] , [place]. tel: [phone] [facility], [address], [place], [address] , [place] tel: [phone] [facility] No Information 5 Mehbod Amir. [facility], [address], [place], [id number] , [place]. tel: [phone] Office/Outpa tient Visit,New, Mod [facility], [address], [place], [place], [address] , [place] tel: [phone] [facility] back and leg pain (chief complaint) Backache, unspecifiedOVERWE IGHT 5-201 5 Mehbod Amir. [facility], [address], [place], [place], [address] , [place]. tel: [phone] Family History Family Member Type Diagnosis Age At Onset No Information Payers Payer name Insurance type Covered republic[place] Liz[place]rera([place] [id number] [place] [id number] Social History Type Description Quantity Date Captured [...]
--- OUTSIDE RECORDS SUMMARY | 2023-12-02 17:23 | XMS_ITS | Continuity of Care Document ---
Author Organization [facility] Address [address] [address] [place] [address] Phone Care Team Providers Care [employer] Technician Name Role Phone Juan Ramírez MD Unavailable [...] Diagnoses Date Provider Providers Copied on Encounter [facility], [address] [address], [place], [place], [id number], [place] tel:[phone] [facility] No Information Dylan Martinez. [address] [facility] [facility] [address], [place], [place], [address], [place]. tel:[phone] Office Cons New/estab Mod [facility], [address] [address], [place], [place], [id number], tel:[phone] [facility] GI Symptoms or Concerns (chief complaint) Intractable nausea and vomitingDiarr hea, unspecified typePain of upper abdomen Jareth Vega. [address] [facility], [facility] [address], [place], [place], [address], [place]. tel:[phone] Referring Provider: Brendan Glover, [address], [place], [address]. tel:[phone] [facility], [address] [address], [place], [place], [address], [place] tel:[phone] [facility] No Information Dylan Martinez. [address] [facility], [place], [place], [address], [place]. tel:[phone] Family History Family Member Type Diagnosis Age [...] and acellular pertussis vaccine, adsorbed administered Note: [employer] b i-directional interface ; Source: Other Registry [...] Registry Payers Payer name Insurance type Covered green party ID Authoriza tion(s) No Information Social [...] the patient. She lost her job at [employer] after working there for many years, because she was missing so much work. Patient has been following with Dr. Regalado at [facility]. I do not have complete records, but [...] and fecal elastase. She was referred to [facility] for further evaluation. She also tells [...]
[2023-12-02 17:29] LABS: Mono Screen* Negative (Negative)
[2023-12-02 17:33] LABS: PCR FLU A Negative PCR FLU A (Negative); PCR FLU B Negative PCR FLU B (Negative); SARS PCR* POSITIVE SARS-CoV-2 (Negative)
[2023-12-02 17:35] LABS: Albumin* 4.2 g/dL (3.3-5.0); Chloride* 105 mmol/L (96-114); Potassium* 3.5 mmol/L (3.6-5.1); Sodium* 138 mmol/L (135-149)
[2023-12-02 17:37] LABS: Aspartate Amino Transferase* 27 U/L (12-35); Bilirubin Direct* 0.1 mg/dL (0.0-0.5); Bilirubin Total* 0.2 mg/dL (0.1-1.5); Magnesium* 1.7 mg/dL (1.5-2.6); Total Protein* 6.8 g/dL (6.0-8.3)
[2023-12-02 17:38] LABS: Alanine Aminotransferase* 20 U/L (4-35); Alkaline Phosphatase* 86 U/L (40-150); Creatinine* 0.8 mg/dL (0.5-1.5); Est. Creatinine Clearance* 74.38; Estimated Glomerular Filt Rate 87 ml/min
[2023-12-02 17:39] LABS: Anion Gap 9 mEq/L (7-15); Blood Urea Nitrogen* 9 mg/dL (7-30); Calcium* 9.2 mg/dL (8.4-10.6); Carbon Dioxide* 24 mmol/L (20-32); Glucose* 91 mg/dL (60-115)
[2023-12-02 17:53] LABS: Troponin I* < 0.01 ng/mL (0.01-0.04)
[2023-12-02 18:01] LABS: Erythrocyte SedimentationRate* 18 mm/hr (2-20)
[2023-12-02 18:29] VITALS: BP 147/80; PULSE 94; RESP 18; O2SAT 97
== END 2023-12-02 18:47 | disposition home or self-care (01) ==
PROVIDERS: Emergency Provider Family Medicine; PCP Family Medicine
DX: U07.1 COVID-19 (principal)
CPT/HCPCS: 36415; 80048; 80076; 81001; 83605; 83735; 84443; 84484; 85025; 85651; 86140; 86308; 87086; 87631; 99283; 99284; J7030